=== PATIENT | male | born 1950 | race Caucasian/White ===

== ENCOUNTER → 2016-09-29 | Outpatient (CLI) | payer MEDICARE ==
--- NOTE | 2016-09-29 11:29 | US ---
EXAMINATION TYPE: US liver DATE OF EXAM: 09/29/2016 11:19 AM COMPARISON: NONE CLINICAL HISTORY: Alcoholic Cirrhosis K70.30. Alcoholic cirrhosis of liver without ascites EXAM MEASUREMENTS: Liver Length: 19.2 cm Gallbladder Wall: 0.2 cm CBD: 0.3 cm Right Kidney: 11.7 x 6.1 x 5.4 cm Pancreas: obscured by overlying midline bowel gas Liver: enlarged at 19.2cm, nodular contour, heterogeneous course echotexture without any definite le sions seen at this time, slightly dilated portal vein at 1.4cm Gallbladder: 1.0cm echogenic shadowing focus seen Evidence for sonographic Cristobal's sign: no CBD: visualized portions wnl, limited by overlying bowel gas Right Kidney: visualized portions wnl, limited by rib shadowing and overlying bowel gas Ascites within RUQ IMPRESSION: 1. Features of cirrhotic liver disease. Portal vein is dilated at 1.4 cm without thrombus at this yen e. 2. Cholelithiasis. 3. Ascites.
== END | disposition home or self-care (01) ==
LOC: RADUSWWP 10:51
PROVIDERS: ATTEND Internal Medicine Gastroenterology
DX: K74.60 Unspecified cirrhosis of liver (principal); K80.20 Calculus of gallbladder without cholecystitis without obstruction; I87.8 Other specified disorders of veins; R18.8 Other ascites
CPT/HCPCS: 76705

== ENCOUNTER → 2016-11-07 | Outpatient (CLI) | payer MEDICARE ==
[2016-11-07 10:58] LABS: CH 30.1; CHCM 33.5; HCT 39.4 % (39.0-53.0); HDW 2.57; HGB 13.6 gm/dL (13.0-17.5); MCH 31.1 pg (25.0-35.0); MCHC 34.5 g/dL (31.0-37.0); MCV 90.3 fL (80.0-100.0); RBC 4.36 m/uL (4.30-5.90); RDW 13.8 % (11.5-15.5)
[2016-11-07 11:21] LABS: ALT 29 U/L (21-72); AST 31 U/L (17-59); Alkaline Phosphatase 87 U/L (38-126); Anion Gap 10 mmol/L; Blood Urea Nitrogen 10 mg/dL (9-20); Carbon Dioxide 26 mmol/L (22-30); Chloride 105 mmol/L (98-107); Glucose 102 mg/dL (74-99); Non-African American GFR(MDRD) >60 (>60 ml/min/1.73 sqM); Potassium 4.3 mmol/L (3.5-5.1); Sodium 141 mmol/L (137-145); Total Bilirubin 1.5 mg/dL (0.2-1.3); Total Protein 7.4 g/dL (6.3-8.2)
[2016-11-07 11:38] LABS: INR 1.2 (<1.1); Prothrombin Time 12.2 sec (9.0-12.0)
== END | disposition home or self-care (01) ==
LOC: LABWHC1 10:14
PROVIDERS: ATTEND Internal Medicine Gastroenterology
DX: K70.30 Alcoholic cirrhosis of liver without ascites (principal)
CPT/HCPCS: 36415; 80053; 82105; 85027; 85610

== ENCOUNTER 2017-02-25 07:32 | Day surgery (SDC) | payer MEDICARE ==
[2017-02-24 09:04] VITALS: BMI 31.8
[~2017-02-25 07:32] MED LIST: LACTATED RINGERS 1,000 ML IV SCH; LIDOCAINE 1% 20 ML VIAL (10MG/ML) FOR IV START INTRADERMA PRN
[2017-02-25 07:48] VITALS: TEMP 98.1
[2017-02-25] MEDS ORDERED: LIDOCAINE 1% INJ 10MG/ML (20 ML MDV) ONE (07:54)
[2017-02-25] MEDS ORDERED: PROPOFOL 10 MG/ML 20 ML VIAL IV ONE (07:54)
--- NOTE | 2017-02-25 07:58 | P.GSHP ---
History of Present Illness H&P Date: 02/25/17 Chief Complaint: Screening colonoscopy 's is a 66-year-old male who presents today for screening colonoscopy. Patient denies any significant GI bleeds. His last colonoscopy was over 5 years ago. Past Medical History Past Medical History: Coronary Artery Disease (CAD), GERD/Reflux, Hypertension, Prostate Disorder Additional Past Medical History / Comment(s): GOUT, STATES HAS CIRRHOSIS OF LIVER History of Any Multi-Drug Resistant Organisms: None Reported Past Surgical History: Heart Catheterization With Stent, Orthopedic Surgery Additional Past Surgical History / Comment(s): 2 HEART STENTS, NASAL SX R/T NOSE BLEEDS, SHOULDER ROTATOR CUFF, CATHERINE CATARACT Past Anesthesia/Blood Transfusion Reactions: No Reported Reaction Date of Last Stent Placement:: 2006 Smoking Status: Former smoker - Past Family History Mother Family Medical History: No Reported History Medications and Allergies Home Medications Medication Instructions Recorded Confirmed Type Aspirin 325 mg PO DAILY 07/12/14 02/25/17 History Atorvastatin [Lipitor] 40 mg PO HS 07/12/14 02/25/17 History Cholecalciferol [Vitamin D3] 5,000 unit PO BID 07/12/14 02/25/17 History Ferocon 40 mg PO DAILY 07/12/14 02/25/17 History Omeprazole 40 mg PO AC-BRKFST 07/12/14 02/25/17 History Ranitidine HCl 150 mg PO HS 07/12/14 02/25/17 History amLODIPine BESYLATE/BENAZEPRIL 1 each PO HS 07/12/14 02/25/17 History [Lotrel 5-20 mg Capsule] traMADol HCl [Ultram] 50 mg PO Q6H PRN 07/12/14 02/25/17 History Metoprolol Tartrate [Lopressor] 25 mg PO HS 02/24/17 02/25/17 History Tamsulosin HCl [Flomax] 0.4 mg PO DAILY 02/24/17 02/25/17 History Allergies Allergy/AdvReac Type Severity Reaction Status Date / Time No Known Allergies Allergy Verified 02/24/17 08:54 Surgical - Exam Vital Signs Temp Pulse Resp BP Pulse Ox 98.1 F 62 16 136/80 98 02/25/17 07:47 02/25/17 07:47 02/25/17 07:47 02/25/17 07:47 02/25/17 07:47 - General well developed, no distress - Eyes PERRL - ENT normal pinna - Neck no masses - Respiratory normal expansion - Cardiovascular Rhythm: regular - Abdomen Abdomen: soft, non tender Assessment and Plan Plan: We will perform screening colonoscopy.
--- NOTE | 2017-02-25 08:16 | P.OP ---
Date of Procedure: 02/25/17 Preoperative Diagnosis: Screening colonoscopy Postoperative Diagnosis: Normal colon Procedure(s) Performed: Colonoscopy Anesthesia: MAC Surgeon: Nam Reeves Pathology: none sent Condition: stable Disposition: PACU Description of Procedure: PROCEDURE: The patient was placed on the endoscopy table in the lateral position. Digital rectal examination was performed which revealed no abnormalities. The prostate was symmetrical without nodules. Flexible colonoscope was then placed in the patient's anus and passed throughout the entire colon. The ileocecal valve was visualized. The cecum, ascending, transverse, descending and sigmoid colon were normal. The rectum was normal as well. There were no masses, polyps or diverticula noted in the entire colon. SUMMARY OF FINDINGS: Normal colonoscopy.
[2017-02-25 08:25] VITALS: PULSE 70; RESP 18
[2017-02-25 08:55] VITALS: BP 121/63
== END 2017-02-25 08:45 | disposition home or self-care (01) ==
LOC: ORWHC2ENDO 07:32
PROVIDERS: ATTEND Surgery
DX: Z12.11 Encounter for screening for malignant neoplasm of colon (principal); K21.9 Gastro-esophageal reflux disease without esophagitis; I25.10 Atherosclerotic heart disease of native coronary artery without angina pectoris; I10 Essential (primary) hypertension; M10.9 Gout, unspecified; K74.60 Unspecified cirrhosis of liver; Z95.5 Presence of coronary angioplasty implant and graft; Z87.891 Personal history of nicotine dependence; Z79.82 Long term (current) use of aspirin; Z79.899 Other long term (current) drug therapy
CPT/HCPCS: J2001; J2704; G0121

== ENCOUNTER → 2018-03-01 | Outpatient (CLI) | payer MEDICARE ==
[2018-03-01 11:28] LABS: ALT 37 U/L (21-72); AST 36 U/L (17-59); Albumin 3.9 g/dL (3.5-5.0); Alkaline Phosphatase 61 U/L (38-126); Anion Gap 5 mmol/L; Blood Urea Nitrogen 17 mg/dL (9-20); Calcium 8.9 mg/dL (8.4-10.2); Carbon Dioxide 30 mmol/L (22-30); Chloride 106 mmol/L (98-107); Glucose 101 mg/dL (74-99); Potassium 4.1 mmol/L (3.5-5.1); Sodium 141 mmol/L (137-145); Total Bilirubin 1.4 mg/dL (0.2-1.3); Total Protein 7.1 g/dL (6.3-8.2)
[2018-03-01 11:29] LABS: HGB 13.6 gm/dL (13.0-17.5); MCH 30.3 pg (25.0-35.0); MCHC 32.3 g/dL (31.0-37.0); MCV 93.8 fL (80.0-100.0); Mean Platelet Volume 8.1; RBC 4.48 m/uL (4.30-5.90); RDW 14.2 % (11.5-15.5); WBC 6.1 k/uL (3.8-10.6)
[2018-03-01 12:12] LABS: INR 1.2 (<1.2); Prothrombin Time 11.6 sec (9.0-12.0)
[2018-03-01 12:39] LABS: Platelet Count 72 k/uL (150-450)
== END ==
LOC: LABWHC1 10:30
PROVIDERS: ATTEND Internal Medicine Gastroenterology
DX: K70.30 Alcoholic cirrhosis of liver without ascites (principal)
CPT/HCPCS: 36415; 80053; 82105; 85027; 85610

== ENCOUNTER → 2018-03-19 | Outpatient (CLI) | payer MEDICARE ==
--- NOTE | 2018-03-19 11:31 | US ---
EXAMINATION TYPE: US liver DATE OF EXAM: 03/19/2018 COMPARISON: NONE CLINICAL HISTORY: Alcoholic cirrhosis K70.30. EXAM MEASUREMENTS: Liver Length: 16.4 cm Gallbladder Wall: 0.4 cm CBD: 0.4 cm Right Kidney: 11.3 x 5.4 x 5.0 cm Pancreas: Tail obscured by overlying bowel gas Liver: diffusely heterogeneous, ascites seen around liver Gallbladder: thickened wall and single 1.1 cm shadowing stone Evidence for sonographic Cristobal's sign: no CBD: wnl Right Kidney: wnl IMPRESSION: 1. Fatty liver. 2. Ascites. 3. Lobulated hepatic contour likely reflects underlying cirrhotic liver disease. 4. Cholelithiasis with gallbladder wall thickening.
== END | disposition home or self-care (01) ==
LOC: RADUSWWP 10:02
PROVIDERS: ATTEND Internal Medicine Gastroenterology
DX: K76.0 Fatty (change of) liver, not elsewhere classified (principal); R18.8 Other ascites; K80.20 Calculus of gallbladder without cholecystitis without obstruction
CPT/HCPCS: 76705

== ENCOUNTER → 2018-05-01 | Outpatient (CLI) | payer MEDICARE ==
[2018-05-01 11:57] LABS: Basophils % (A) 1 %; Eosinophils # (A) 0.1 k/uL (0-0.7); Eosinophils % (A) 1 %; HCT 42.8 % (39.0-53.0); HGB 13.5 gm/dL (13.0-17.5); Lymphocytes # (A) 0.7 k/uL (1.0-4.8); Lymphocytes % (A) 13 %; MCH 29.8 pg (25.0-35.0); MCHC 31.5 g/dL (31.0-37.0); MCV 94.4 fL (80.0-100.0); Mean Platelet Volume 7.7; Monocytes # (A) 0.4 k/uL (0-1.0); Monocytes % (A) 8 %; Neutrophils # (A) 3.8 k/uL (1.3-7.7); Neutrophils % (A) 76 %; RBC 4.54 m/uL (4.30-5.90); RDW 14.3 % (11.5-15.5)
[2018-05-01 12:00] LABS: Platelet Count 61 k/uL (150-450)
[2018-05-01 13:09] LABS: Appearance,Urine Clear (Clear); Bilirubin,Urine Negative (Negative); Blood,Urine Negative (Negative); Color,Urine Yellow; Glucose,Urine (UA) Negative (Negative); Ketones,Urine Negative (Negative); Leukocyte Esterase,Urine Negative (Negative); Nitrite,Urine Negative (Negative); Protein,Urine Trace (Negative); Specific Gravity,Urine 1.026 (1.001-1.035)
[2018-05-01 16:48] LABS: Iron Saturation 35.35 (15.00-50.00)
[2018-05-01 16:57] LABS: Vitamin D 25 Hydroxy 48.3 ng/mL (30.0-100.0)
[2018-05-01 17:37] LABS: Parathyroid Hormone Intact 51.2 pg/mL (14.0-72.0)
[2018-05-01 17:41] LABS: Anion Gap 7.1 mmol/L (4.00-12.00); Calcium 9.1 mg/dL (8.7-10.3); Carbon Dioxide 28.9 mmol/L (21.6-31.8); Magnesium 1.8 mg/dL (1.5-2.4); Phosphorus 2.5 mg/dL (2.4-5.1); Uric Acid 7.1 mg/dL (3.7-8.7)
== END | disposition home or self-care (01) ==
LOC: LABWHC1 09:56
PROVIDERS: ATTEND Internal Medicine Nephrology
DX: I10 Essential (primary) hypertension (principal); E61.1 Iron deficiency; D64.9 Anemia, unspecified; E55.9 Vitamin D deficiency, unspecified; E21.3 Hyperparathyroidism, unspecified; M10.9 Gout, unspecified; N39.0 Urinary tract infection, site not specified
CPT/HCPCS: 36415; 80048; 81003; 82306; 82728; 83540; 83550; 83735; 83970; 84100; 84550; 85025

== ENCOUNTER → 2018-09-20 | Outpatient (CLI) | payer MEDICARE ==
[2018-09-20 08:46] LABS: HCT 40.7 % (39.0-53.0); HGB 13.1 gm/dL (13.0-17.5); MCH 29.6 pg (25.0-35.0); MCHC 32.3 g/dL (31.0-37.0); MCV 91.4 fL (80.0-100.0); Mean Platelet Volume 8.3; RBC 4.45 m/uL (4.30-5.90); RDW 13.9 % (11.5-15.5); WBC 3.5 k/uL (3.8-10.6)
[2018-09-20 09:06] LABS: Platelet Count 64 k/uL (150-450)
[2018-09-20 17:48] LABS: Albumin 3.9 g/dL (3.80-4.90); Albumin/Globulin Ratio 1.86 (1.60-3.17); Anion Gap 6.4 mmol/L (4.00-12.00); Calcium 8.9 mg/dL (8.7-10.3); Carbon Dioxide 25.6 mmol/L (21.6-31.8); Globulin 2.1 g/dL (1.6-3.3); Potassium 4.2 mmol/L (3.5-5.5); Total Bilirubin 1.3 mg/dL (0.2-1.2)
== END ==
LOC: LABWHC1 07:44
PROVIDERS: ATTEND Family Medicine
DX: K74.60 Unspecified cirrhosis of liver (principal); Z12.5 Encounter for screening for malignant neoplasm of prostate
CPT/HCPCS: 80053; 85027; 36415; G0103

== ENCOUNTER → 2019-03-07 | Outpatient (CLI) | payer MEDICARE ==
[2019-03-07 13:09] LABS: INR 1.2 (<1.2)
[2019-03-07 20:12] LABS: African American GFR (CKD) 88.6 (60.0-200.0); Albumin/Globulin Ratio 1.82 (1.60-3.17); Anion Gap 8.2 mmol/L (4.00-12.00); Calcium 8.7 mg/dL (8.7-10.3); Carbon Dioxide 23.8 mmol/L (21.6-31.8); Globulin 2.2 g/dL (1.6-3.3); Potassium 4.4 mmol/L (3.5-5.5); Total Bilirubin 1.1 mg/dL (0.3-1.2); Total Protein 6.2 g/dL (6.2-8.2)
== END | disposition home or self-care (01) ==
LOC: LABPAT 12:07
PROVIDERS: ATTEND Internal Medicine Gastroenterology
DX: K70.30 Alcoholic cirrhosis of liver without ascites (principal)
CPT/HCPCS: 36415; 80053; 82105; 85610

== ENCOUNTER → 2019-03-31 | Outpatient (CLI) | payer MEDICARE ==
[2019-03-31 11:57] LABS: INR 1.1 (<1.2); Prothrombin Time 11.7 sec (9.0-12.0)
[2019-03-31 11:59] LABS: Calcium 9.2 mg/dL (8.4-10.2); Potassium 4.9 mmol/L (3.5-5.1); Total Bilirubin 1.1 mg/dL (0.2-1.3); Total Protein 7.1 g/dL (6.3-8.2)
--- NOTE | 2019-03-31 12:06 | US ---
EXAMINATION TYPE: US abdomen limited DATE OF EXAM: 03/31/2019 COMPARISON: 03/19/2018 CLINICAL HISTORY: 68-year-old male K70.30Alcoholic cirrhosis of liver without ascites. TECHNIQUE: Multiple sonographic images of the right upper quadrant are obtained. FINDINGS: EXAM MEASUREMENTS: Liver Length: 19 cm Gallbladder Wall: .4 cm CBD: .4 cm Right Kidney: 9.7 x 5.6 x 4.2 cm Pancreas: Obscured by bowel gas Liver: Heterogenous nodular and lobulated. Ascites visualized. No focal liver lesion identified. Gallbladder: 1.1 cm gallstone noted. Gallbladder is borderline distended at 4.2 cm wide with mild ci rcumferential wall thickening. No surrounding fluid. Evidence for sonographic Cristobal's sign: No CBD: wnl Right Kidney: No hydronephrosis. IMPRESSION: 1. Mild hepatomegaly (19.0 cm) with cirrhotic morphology. No sonographic evidence for hepatoma. 2. Mild perihepatic ascites suggests underlying portal venous hypertension. 3. A 1.1 cm gallstone. Gallbladder is borderline hydropic with mild circumference wall thickening. Hy dropic change could relate to fasting state. Wall thickening is also nonspecific and can be seen in t he setting of cirrhosis. Sonographic Cristobal sign is reported absent. If further imaging assessment of the gallbladder is desired, HIDA scan can be performed. 4. No biliary ductal dilatation.
== END | disposition home or self-care (01) ==
LOC: RADUSWWP 10:58
PROVIDERS: ATTEND Internal Medicine Gastroenterology
DX: K70.31 Alcoholic cirrhosis of liver with ascites (principal); K80.20 Calculus of gallbladder without cholecystitis without obstruction; K70.30 Alcoholic cirrhosis of liver without ascites
CPT/HCPCS: 76705; 80053; 82105; 85610

== ENCOUNTER → 2020-06-27 | Outpatient (CLI) | payer MEDICARE, OTHER ==
--- NOTE | 2020-06-27 12:04 | CTL ---
EXAMINATION TYPE: CT Low Dose Lung DATE OF EXAM ORDERED: 06/27/2020 HISTORY: Long-term tobacco use. Lung cancer screening CT DLP: 84.[address] CTDI: 2.4 mGy Automated exposure control for dose reduction was used. SCREENING VISIT: Initial study COMPARISON: None. TECHNIQUE: Low dose computed tomography scan was performed through the chest at 1 mm thick sections a nd reconstructed images in the coronal plane at [address] DIAGNOSTIC QUALITY: Satisfactory FINDINGS: LUNG NODULES: None. LUNGS: COPD: Severity: Mild Fibrosis: Severity: Minimal Lymph nodes: Calcified subcentimeter right hilar lymph nodes Other findings: None RIGHT PLEURAL SPACE: Effusion: None Calcification: None Thickening: None Pneumothorax: None LEFT PLEURAL SPACE: Effusion: None Calcification: None Thickening: None Pneumothorax: None HEART: Heart Size: Upper limits of normal Coronary calcification: Moderate to severe in the LAD. Coronary stent in the right circumflex suspect ed. Correlate clinically. Pericardial effusion: None. OTHER FINDINGS: Upper abdomen: Small sized liver with heterogeneity and peripheral lobulated margins. Adjacent ascite s. Visualized portion of spleen is prominent. Bony thorax: Some bridging osteophytes in the thoracic spine. Underlying scoliosis. Supraclavicular region: None. Other: None. IMPRESSION: No suspicious nodules. CT LUNG RAD AND CT CHEST RECOMMENDATION: Lung-Rad 1 Negative: Continue annual screening with LDCT in 12 months. S Modifier (other clinically significant findings): None Hepatic cirrhosis with ascites is known, described on prior ultrasound studies.
== END | disposition home or self-care (01) ==
LOC: RADCTMAIN 11:12
PROVIDERS: ATTEND Family Medicine
DX: Z12.2 Encounter for screening for malignant neoplasm of respiratory organs (principal); Z87.891 Personal history of nicotine dependence
CPT/HCPCS: 71271

== ENCOUNTER → 2020-08-15 | Outpatient (CLI) | payer MEDICARE ==
[2020-08-15 20:22] LABS: INR 1.65 (0.90-1.11); Prothrombin Time 17.4 sec (9.9-11.9)
[2020-08-16 02:27] LABS: African American GFR (CKD) 99.2 (60.0-200.0); Albumin/Globulin Ratio 1.67 (1.60-3.17); Anion Gap 9.3 mmol/L (4.00-12.00); BUN/Creat Ratio 16.67 Ratio (12.00-20.00); Calcium 9.1 mg/dL (8.7-10.3); Carbon Dioxide 25.7 mmol/L (21.6-31.8); Globulin 2.4 g/dL (1.6-3.3); Non-African American GFR(CKD) 85.6 (60.0-200.0); Total Bilirubin 1.1 mg/dL (0.3-1.2); Total Protein 6.4 g/dL (6.2-8.2)
== END | disposition home or self-care (01) ==
LOC: LABWHC1 11:14
PROVIDERS: ATTEND Internal Medicine Gastroenterology
DX: K70.30 Alcoholic cirrhosis of liver without ascites (principal)
CPT/HCPCS: 36415; 80053; 82105; 85610

== ENCOUNTER → 2020-08-18 | Outpatient (CLI) | payer MEDICARE ==
--- NOTE | 2020-08-18 15:45 | MR ---
EXAMINATION TYPE: MR liver wo/w con DATE OF EXAM: 08/18/2020 COMPARISON: HISTORY: Portal vein thrombosis, hx cirrhosis CONTRAST: Standard multiplanar, multisequence MRI departmental protocol utilizing 10 mL intravenous Gadavist ga dolinium contrast. Liver margin is irregular consistent with cirrhosis. There is deformity of the right lobe of the live r that is suggestive of previous partial resection. There is irregular fluid collection on the latera l aspect of the right lobe of the liver. Spleen measures 13 cm. Gallbladder appears to be present and measures 3.5 cm in diameter with heterogeneity. No gallbladder wall thickening. There is no evidence of a pancreatic mass. Pancreatic duct is not dilated. The contrast images show enhancement of the portal venous system. I see no evidence of thrombosis. Th ere is contrast opacification of the abdominal aorta and both kidneys. There is no hydronephrosis. Th ere is contrast opacification of the inferior vena cava. No evidence of thrombosis. Portal vein is la rge consistent with portal venous hypertension. There are some dilated veins around the left kidney a nd at the gastroesophageal junction consistent with varices. I see no discrete liver mass. There is n o pathologic liver enhancement. IMPRESSION: Irregular liver consistent with cirrhosis and previous surgery. No discrete pancreatic mass. No dilat ed ducts. Changes of portal venous hypertension with varices. No evidence of portal vein thrombosis. Loculated ascites fluid lateral to the right lobe of the liver. Ascites appears similar to the chest CT scan of 06/27/2020.
== END | disposition home or self-care (01) ==
LOC: RADMRIMAIN 12:00
PROVIDERS: ATTEND Internal Medicine Gastroenterology
DX: K76.6 Portal hypertension (principal); R18.8 Other ascites
CPT/HCPCS: 74183; A9585

== ENCOUNTER → 2020-08-20 | Outpatient (CLI) | payer MEDICARE ==
[2020-08-20 14:24] LABS: Basophils % (A) 1 %; Eosinophils % (A) 1 %; HCT 38.6 % (39.0-53.0); HGB 12.6 gm/dL (13.0-17.5); Lymphocytes # (A) 0.6 k/uL (1.0-4.8); Lymphocytes % (A) 18 %; MCH 29.4 pg (25.0-35.0); MCHC 32.6 g/dL (31.0-37.0); MCV 90.3 fL (80.0-100.0); Mean Platelet Volume 8.2; Monocytes # (A) 0.4 k/uL (0-1.0); Monocytes % (A) 11 %; Neutrophils # (A) 2.3 k/uL (1.3-7.7); Neutrophils % (A) 68 %; RBC 4.28 m/uL (4.30-5.90); RDW 14.5 % (11.5-15.5); WBC 3.4 k/uL (3.8-10.6)
[2020-08-20 15:34] LABS: Platelet Count 63 k/uL (150-450)
== END | disposition home or self-care (01) ==
LOC: LABPAT 11:42
PROVIDERS: ATTEND Surgery
DX: Z01.818 Encounter for other preprocedural examination (principal); K42.0 Umbilical hernia with obstruction, without gangrene
CPT/HCPCS: 36415; 85025; 93005

== ENCOUNTER 2020-08-21 06:04 | Day surgery (SDC) | payer MEDICARE ==
[2020-08-16 17:49] VITALS: BMI 29.5
[~2020-08-21 06:04] MED LIST changes: +ACETAMINOPHEN TAB 500 MG TAB PO PRN; +HEPARIN SODIUM,PORCINE 5,000 UNIT/ML 1 ML VIAL SQ PRN; -LIDOCAINE 1% 20 ML VIAL (10MG/ML) FOR IV START INTRADERMA PRN
[2020-08-21] MEDS ORDERED: LIDOCAINE 1% (10MG/ML) FOR IV START INTRADERMA ONE (06:53)
[2020-08-21] MEDS ORDERED: DEXAMETHASONE SOD PHOSPHATE 4 MG/ML 1 ML VIAL IV ONE (06:53)
[2020-08-21] MEDS: ONDANSETRON 4 MG/2 ML VIAL IVP PRN ×2 (06:54→08:55)
[2020-08-21] MEDS ORDERED: fentaNYL (PF) 50 MCG/ML 2 ML AMP IV PRN (07:00)
[2020-08-21] MEDS ORDERED: HYDROmorphone 0.5 MG/0.5 ML SYRINGE IVP PRN (07:00)
[2020-08-21] MEDS ORDERED: SUCCINYLCHOLINE CHLORIDE 100 MG/5 ML SYR IV ONE (07:40)
[2020-08-21] MEDS ORDERED: MIDAZOLAM 2 MG/2 ML VIAL ONE (07:40)
[2020-08-21] MEDS ORDERED: NEOSTIGMINE 1 MG/ML 10 ML VIAL ONE (07:40)
[2020-08-21] MEDS ORDERED: fentaNYL (PF) 50 MCG/ML 2 ML AMP ONE (07:40)
[2020-08-21] MEDS ORDERED: GLYCOPYRROLATE 0.2 MG/ML 2 ML VIAL ONE (07:40)
[2020-08-21] MEDS ORDERED: ROCURONIUM 10 MG/ML (5 ML VIAL) IV ONE (07:40)
[2020-08-21] MEDS ORDERED: PROPOFOL 10 MG/ML 20 ML VIAL IV ONE (07:40)
[2020-08-21] MEDS ORDERED: LIDOCAINE 1% INJ 10MG/ML (20 ML MDV) ONE (07:40)
[2020-08-21] MEDS ORDERED: BUPIVACAIN-EPI 0.5%-1:200,000 30 ML VIAL SQ ONE (08:04)
--- NOTE | 2020-08-21 08:43 | P.GSHP ---
History of Present Illness H&P Date: 08/21/20 Chief Complaint: Umbilical hernia This a 70-year-old male with history of umbilical pain. Patient seen Nelson set of incarcerated umbilical hernia. He presents today for laparoscopic robotic- assisted repair. Past Medical History Past Medical History: GERD/Reflux, Hyperlipidemia, Hypertension, Myocardial Infarction ([place]), Renal Disease Additional Past Medical History / Comment(s): clot in liver Last Myocardial Infarction Date:: 2012 History of Any Multi-Drug Resistant Organisms: None Reported Past Surgical History: Heart Catheterization With Stent Additional Past Surgical History / Comment(s): 2 heart stents Past Anesthesia/Blood Transfusion Reactions: No Reported Reaction Date of Last Stent Placement:: 2012 Past Psychological History: No Psychological Hx Reported Smoking Status: Former smoker Past Alcohol Use History: None Reported Additional Past Alcohol Use History / Comment(s): smoked 30 years 1 ppd quit 2012 Past Drug Use History: None Reported - Past Family History Mother Family Medical History: No Reported History Medications and Allergies Home Medications Medication Instructions Recorded Confirmed Type Atorvastatin [Lipitor] 40 mg PO HS 07/12/14 08/21/20 History Cholecalciferol [Vitamin D3] 500 unit PO DAILY 07/12/14 08/21/20 History Ferocon 40 mg PO DAILY 07/12/14 08/21/20 History Omeprazole 20 mg PO AC-BRKFST 07/12/14 08/21/20 History traMADol HCl [Ultram] 100 mg PO BID PRN 07/12/14 08/21/20 History Aspirin [Adult Low Dose Aspirin EC] 81 mg PO DAILY 08/06/20 08/21/20 History Atenolol [Tenormin] 50 mg PO HS 08/06/20 08/21/20 History Benazepril HCl [Lotensin] 20 mg PO DAILY 08/06/20 08/21/20 History Loratadine [Claritin] 10 mg PO DAILY 08/06/20 08/21/20 History Rivaroxaban [Xarelto] 15 mg PO DAILY 08/06/20 08/21/20 History Fish Oil/Dha/Epa [Fish Oil 1,200 1,400 mg PO DAILY 08/16/20 08/21/20 History mg Fish Oil] Allergies Allergy/AdvReac Type Severity Reaction Status Date / Time No Known Allergies Allergy Verified 08/21/20 06:30 Surgical - Exam Vital Signs Temp Pulse Resp BP Pulse Ox 97.7 F 75 16 153/80 98 08/21/20 06:49 08/21/20 06:49 08/21/20 06:49 08/21/20 06:49 08/21/20 06:49 - General well developed, well nourished, no distress - Eyes PERRL - ENT normal pinna - Neck no masses - Respiratory normal expansion - Cardiovascular Rhythm: regular - Abdomen Abdomen: soft, non tender Hernia: umbilical (3 cm incarcerated umbilical hernia) Assessment and Plan Assessment: Incarcerated umbilical hernia. We'll perform laparoscopic robotic-assisted repair.
--- NOTE | 2020-08-21 08:45 | P.OP ---
Date of Procedure: 08/21/20 Preoperative Diagnosis: Incarcerated umbilical hernia Postoperative Diagnosis: [place] hernia Cirrhotic liver Ascites Procedure(s) Performed: Laparoscopic robotic-assisted repair of incarcerated umbilical hernia Partial omentectomy Anesthesia: RAYSHAWN Surgeon: Nam Reeves Estimated Blood Loss (ml): 5 Pathology: other Condition: stable Disposition: PACU Description of Procedure: The patient was placed on the operating table in the supine position. He received general anesthesia. His abdomen was prepped and draped usual fashion. Using a 5 mm optical trocar under direct visualization the peritoneal cavity was entered in the left upper quadrant. The abdomen was then insufflated. The laparoscope was placed back into the perineal cavity. Next a 8 mm robotic trocar was placed in the left lower quadrant and a 12 mm robotic trocar was placed in the left lateral position. The original 5 mm trocar was exchanged for a 8 mm robotic trocar. The patient's placed in the left side up position. And the patient was undocked the robot. The umbilical hernia was visualized. Using hook cautery the peritoneum over the umbilical hernia was excised. The incarcerated omentum was dissected free and sent to pathology. The fascial opening was repaired using 0V LOC suture. Next a piece of 11 cm round ventral light ST mesh was placed into the. Cavity and secured with 2 OV lock suture. The patient was undocked the robot. The needles were retrieved. The fascia of the 12 mm trocar site was closed with 0 Ethibond suture. Skin was closed interrupted 3-0 Monocryl suture. Dermabond dressings was applied. Patient top procedure well and was sent to recovery room stable condition.
[2020-08-21 08:49] VITALS: TEMP 97.2
[2020-08-21 10:07] VITALS: RESP 18
[2020-08-21 11:08] VITALS: BP 148/80; PULSE 73
== END 2020-08-21 11:46 | disposition home or self-care (01) ==
LOC: OR 06:04
PROVIDERS: ATTEND Surgery
DX: K42.0 Umbilical hernia with obstruction, without gangrene (principal); K74.60 Unspecified cirrhosis of liver; R18.8 Other ascites; I25.10 Atherosclerotic heart disease of native coronary artery without angina pectoris; E78.5 Hyperlipidemia, unspecified; I10 Essential (primary) hypertension; I38 Endocarditis, valve unspecified; E66.9 Obesity, unspecified; N28.9 Disorder of kidney and ureter, unspecified; K21.9 Gastro-esophageal reflux disease without esophagitis; I25.2 Old myocardial infarction; Z95.5 Presence of coronary angioplasty implant and graft; Z79.899 Other long term (current) drug therapy; Z79.82 Long term (current) use of aspirin; Z79.01 Long term (current) use of anticoagulants; Z68.29 Body mass index [BMI] 29.0-29.9, adult; Z87.19 Personal history of other diseases of the digestive system; Z87.891 Personal history of nicotine dependence
CPT/HCPCS: 88302; 49653; C1781; J2250; J1644; J1100; J2710; J0690; J2405; J2001; J3010; J0330; J2704; J1170

== ENCOUNTER 2020-09-05 10:28 | Day surgery (SDC) | payer MEDICARE ==
[2020-08-31 10:15] VITALS: BMI 29.5
[~2020-09-05 10:28] MED LIST changes: -ACETAMINOPHEN TAB 500 MG TAB PO PRN; -HEPARIN SODIUM,PORCINE 5,000 UNIT/ML 1 ML VIAL SQ PRN; +LIDOCAINE 1% (10MG/ML) FOR IV START INTRADERMA PRN
[2020-09-05 11:14] VITALS: PULSE 85; RESP 16; TEMP 97.7
[2020-09-05] MEDS ORDERED: PROPOFOL 10 MG/ML 20 ML VIAL IV ONE (11:30)
[2020-09-05] MEDS ORDERED: LIDOCAINE 1% INJ 10MG/ML (20 ML MDV) ONE (11:30)
--- NOTE | 2020-09-05 11:49 | P.PCN ---
Date of Procedure: 09/05/20 Procedure(s) Performed: Brief history: Patient is a pleasant 70-year-old white male scheduled for an elective upper endoscopy as well as colonoscopy as a part of evaluation of alcoholic cirrhosis of the liver/screening for esophageal varices. He was recently diagnosed with colon cancer versus and he scheduled for colonoscopy to rule out underlying malignancy. Procedure performed: Esophagogastroduodenoscopy with biopsy Colonoscopy with snare polypectomy Preoperative diagnosis: Alcoholic cirrhosis of the liver/screening for esophageal varices History of DVT/screening for colon cancer Anesthesia: MAC Procedure: After informed consent was obtained from the patient was brought into the endoscopy unit and IV sedation was administered by anesthesia under continuous monitoring. Initially upper endoscopy was done. The Olympus GF 160 video endoscope was inserted inserted into the mouth and esophagus intubated without any difficulty and was gradually advanced into the stomach and duodenum and carefully examined. The bulb and second part of the duodenum appeared normal. The scope was then withdrawn into the stomach adequately insufflated with air and upon careful examination the antrum and body, cardia had changes consistent with portal hypertensive gastropathy. The fundus appeared normal. The scope was then withdrawn into the esophagus. The GE junction was located at 40 cm to the incisors. It appeared regular with no erythema erosions or ulcerations. There were large esophageal varices noted in the mid and distal esophagus. Rest of the esophagus appeared normal. Patient tolerated the procedure well. At this time the patient continued to remain sedation. Initial digital rectal examination was normal. Olympus CF 160 video colonoscope was then inserted into the rectum and gradually advanced to the cecum without any difficulty. Careful examination was performed as the scope was gradually being withdrawn. The prep was excellent. The cecum, ascending colon, transverse colon, appeared normal. The transverse colon there was a 5 mm polyp that was removed by snare p olypectomy. Rest of descending colon, sigmoid colon and rectum appeared normal. Retroflexion was performed in the rectum and grade 2 internal hemorrhoids were noted. Patient tolerated the procedure well. Impression: 1. Upper endoscopy revealed large esophageal varices and portal hypertensive gastropathy 2. Colonoscopy revealed a 5 mm transverse colon polyp status post polypectomy and grade 2 internal Recommendations: Findings of this examination were discussed with the patient as well as his family. He was advised to follow with the biopsy results. He'll be seen in office in 2 weeks.
[2020-09-05 12:08] VITALS: BP 133/76
== END 2020-09-05 12:28 | disposition home or self-care (01) ==
LOC: ORWHC2ENDO 10:28
PROVIDERS: ATTEND Internal Medicine Gastroenterology
DX: Z12.11 Encounter for screening for malignant neoplasm of colon (principal); D12.3 Benign neoplasm of transverse colon; K64.1 Second degree hemorrhoids; Z13.810 Encounter for screening for upper gastrointestinal disorder; I85.10 Secondary esophageal varices without bleeding; K70.30 Alcoholic cirrhosis of liver without ascites; K76.6 Portal hypertension; K31.89 Other diseases of stomach and duodenum; K29.50 Unspecified chronic gastritis without bleeding; I81 Portal vein thrombosis; K08.409 Partial loss of teeth, unspecified cause, unspecified class; I25.10 Atherosclerotic heart disease of native coronary artery without angina pectoris; I10 Essential (primary) hypertension; E78.5 Hyperlipidemia, unspecified; K21.9 Gastro-esophageal reflux disease without esophagitis; Z86.718 Personal history of other venous thrombosis and embolism; Z79.82 Long term (current) use of aspirin; Z79.01 Long term (current) use of anticoagulants; Z79.891 Long term (current) use of opiate analgesic; Z79.899 Other long term (current) drug therapy; Z95.5 Presence of coronary angioplasty implant and graft
CPT/HCPCS: 45385; 43239; J2001; J2704; 88305

== ENCOUNTER 2020-10-24 08:59 | Day surgery (SDC) | payer MEDICARE ==
[2020-10-24 09:32] VITALS: RESP 18; TEMP 97.7
[2020-10-24 09:35] LABS: African American GFR (CKD) >90 (>60 ml/min/1.73 sqM); Non-African American GFR(CKD) >90 (>60 ml/min/1.73 sqM)
[2020-10-24 09:37] LABS: Mean Platelet Volume 8.4
[2020-10-24 09:38] LABS: Platelet Count 88 k/uL (150-450)
[2020-10-24 09:43] LABS: INR 1.2 (<1.2); Prothrombin Time 12.4 sec (9.0-12.0)
[2020-10-24] MEDS: ALBUMIN HUMAN 25% 50 ML in EMPTY BAG 1 BAG IVPB SCH ×4 (10:38→11:27)
[2020-10-24 13:12] VITALS: BP 102/62; PULSE 75
--- NOTE | 2020-10-24 13:40 | US ---
EXAMINATION TYPE: US paracentesis abd w/image DATE OF EXAM: 10/24/2020 COMPARISON: NONE HISTORY: Ascites. PROCEDURE: Maximal barrier technique was utilized. The skin overlying a suitable pocket of fluid was localized with ultrasound and the overlying skin was prepped and draped. Ultrasound was utilized with sterile technique. Lidocaine was used for local anesthesia and a skin farheen made with a scalpel. Catheter was advanced under direct ultrasound guidance into a suitable pocket of fluid and approximately 11.3 lite rs of serous fluid were removed. Catheter was withdrawn and hemostasis achieved. There is no immedi ate complication; the patient is discharged in stable condition. IMPRESSION: STATUS POST ULTRASOUND GUIDED PARACENTESIS FOR PALLIATION OF ASCITES. THIS PROCEDURE WA S PERFORMED BY THE UNDERSIGNED.
== END 2020-10-24 13:50 | disposition home or self-care (01) ==
LOC: RADPROMAIN 08:59
PROVIDERS: ATTEND Surgery
DX: R18.8 Other ascites (principal)
CPT/HCPCS: 82565; 85049; 85610; 36415; 49083; P9047

== ENCOUNTER 2020-11-06 14:55 | Observation (INO) | payer MEDICARE ==
--- NOTE | 2020-11-06 15:47 | ED ---
General Adult HPI - General Chief complaint: Abdominal Pain Stated complaint: Paracentesis,sent by pcp Time Seen by Provider: 11/06/20 15:07 Source: patient, RN notes reviewed, old records reviewed Mode of arrival: ambulatory Limitations: no limitations - History of Present Illness Initial comments: 70-year-old male with history of cirrhosis and ascites presenting with abdominal distention and discomfort. He states he had paracentesis approximately 2 weeks ago where they removed 11 L of fluid. Patient contacted the primary care physician to inquire about paracentesis and states that this is scheduled for 2 weeks from now. He is unable to wait this long. He denies fever. Pain is generalized and similar to prior. No vomiting. Patient is urinating. No dyspnea. - Related Data Home Medications Medication Instructions Recorded Confirmed Atorvastatin [Lipitor] 40 mg PO DAILY 07/12/14 10/24/20 Cholecalciferol [Vitamin D3] 5,000 unit PO TH 07/12/14 10/24/20 traMADol HCl [Ultram] 100 mg PO BID PRN 07/12/14 10/24/20 Aspirin [Adult Low Dose Aspirin EC] 81 mg PO DAILY 08/06/20 10/24/20 Atenolol [Tenormin] 50 mg PO HS 08/06/20 10/24/20 Benazepril HCl [Lotensin] 20 mg PO DAILY 08/06/20 10/24/20 Loratadine [Claritin] 10 mg PO DAILY 08/06/20 10/24/20 Feracon Iron Supplement 40 mg PO DAILY 08/31/20 10/24/20 Omeprazole 20 mg PO AC-LUNCH 08/31/20 10/24/20 Allergies Allergy/AdvReac Type Severity Reaction Status Date / Time No Known Allergies Allergy Verified 11/06/20 14:59 Review of Systems ROS Statement: Those systems with pertinent positive or pertinent negative responses have been documented in the HPI. ROS Other: All systems not noted in ROS Statement are negative. Past Medical History Past Medical History: GERD/Reflux, Hyperlipidemia, Hypertension, Myocardial Infarction ([place]), Renal Disease Additional Past Medical History / Comment(s): clot in liver Last Myocardial Infarction Date:: 2012 History of Any Multi-Drug Resistant Organisms: None Reported Past Surgical History: Heart Catheterization With Stent Additional Past Surgical History / Comment(s): 2 heart stents Past Anesthesia/Blood Transfusion Reactions: No Reported Reaction Date of Last Stent Placement:: 2012 Past Psychological History: No Psychological Hx Reported Smoking Status: Former smoker Past Alcohol Use History: None Reported Past Drug Use History: None Reported General Exam Limitations: no limitations General appearance: alert, in no apparent distress Head exam: Present: atraumatic, normocephalic Eye exam: Present: normal appearance, PERRL ENT exam: Present: normal exam Neck exam: Present: normal inspection. Absent: tenderness, meningismus Respiratory exam: Present: normal lung sounds bilaterally. Absent: respiratory distress, wheezes Cardiovascular Exam: Present: regular rate, normal rhythm GI/Abdominal exam: Present: distended, other (Positive fluid wave). Absent: guarding, rebound Extremities exam: Present: pedal edema (Trace) Neurological exam: Present: alert, oriented X3, CN II-XII intact. Absent: motor sensory deficit Psychiatric exam: Present: normal affect, normal mood Skin exam: Present: warm, dry, intact. Absent: cyanosis, diaphoretic Course Vital Signs 11/06/20 14:57 Temperature 97.5 F L Pulse Rate 82 Respiratory 16 Rate Blood Pressure 121/77 O2 Sat by Pulse 95 Oximetry Medical Decision Making - Medical Decision Making 70-year-old male hemodynamic was stable with abdominal distention, recurrent ascites. I did contact the interventional radiologist Dr. Bowie regarding paracentesis. The scheduling is full for today but they are able to schedule the patient for paracentesis tomorrow. Patient will be admitted with interventional radiology on consult. Laboratory tests including CBC, BMP and PT/INR have been ordered, results pending. Disposition Clinical Impression: Liver cirrhosis, Ascites Disposition: ADMITTED IP TO THIS HOSP Condition: Stable Instructions (If sedation given, give patient instructions): Ascites (ED) Is patient prescribed a controlled substance at d/c from ED?: No Referrals: Trang Jackson DO [Primary Care Provider] - 1-2 days Decision to Admit Reason: Admit from EC Decision Date: 11/06/20 Decision Time: 15:53
[2020-11-06] MEDS ORDERED: MORPHINE SULFATE 4 MG/ML SYRINGE IV PRN (15:56)
[2020-11-06] MEDS ORDERED: NALOXONE 0.4 MG/ML 1 ML VIAL IV PRN (15:56)
[2020-11-06 16:11] LABS: Basophils # (A) 0.1 k/uL (0-0.2); Basophils % (A) 1 %; Eosinophils # (A) 0.1 k/uL (0-0.7); Eosinophils % (A) 2 %; HCT 39.7 % (39.0-53.0); Lymphocytes # (A) 0.6 k/uL (1.0-4.8); Lymphocytes % (A) 13 %; MCH 28.7 pg (25.0-35.0); MCHC 32.8 g/dL (31.0-37.0); MCV 87.4 fL (80.0-100.0); Mean Platelet Volume 9.6; Monocytes # (A) 0.4 k/uL (0-1.0); Monocytes % (A) 9 %; Neutrophils # (A) 3.3 k/uL (1.3-7.7); Neutrophils % (A) 74 %; RBC 4.55 m/uL (4.30-5.90); RDW 15.4 % (11.5-15.5); WBC 4.4 k/uL (3.8-10.6)
[2020-11-06 16:19] LABS: Platelet Count 72 k/uL (150-450)
[2020-11-06 16:20] LABS: African American GFR (CKD) >90 (>60 ml/min/1.73 sqM); Anion Gap 5 mmol/L; Blood Urea Nitrogen 15 mg/dL (9-20); Calcium 8.9 mg/dL (8.4-10.2); Carbon Dioxide 28 mmol/L (22-30); Chloride 107 mmol/L (98-107); Glucose 134 mg/dL (74-99); Non-African American GFR(CKD) >90 (>60 ml/min/1.73 sqM); Sodium 140 mmol/L (137-145)
[2020-11-06 16:21] LABS: INR 1.2 (<1.2); Partial Thromboplastin Time 26.1 sec (22.0-30.0); Prothrombin Time 12.6 sec (9.0-12.0)
[2020-11-06 16:32] LABS: Potassium 4.4 mmol/L (3.5-5.1)
[2020-11-07 04:25] VITALS: TEMP 98
[2020-11-07] MEDS ORDERED: PANTOPRAZOLE 40 MG TABLET PO SCH (07:30)
--- NOTE | 2020-11-07 09:36 | US ---
Ultrasound-guided paracentesis. DATE OF EXAM: 11/07/2020 CLINICAL HISTORY: Ascites The procedure was discussed with the patient. The risks, complications, benefits, and alternatives we re discussed and any questions were answered. Informed consent was obtained. The patient was placed s upine on the ultrasound table and prepped and draped in the usual sterile fashion. All elements of maximal barrier technique were utilized. Under ultrasound guidance, access into the right lower quadrant was obtained, via the paracentesis catheter system and direct ultrasound guidanc e. Approximately 8 liters of straw-colored fluid was removed. The patient was stable throughout the proc edure and remained stable upon discharge from Department of Radiology. IMPRESSION: Successful paracentesis under ultrasound guidance.
[2020-11-07 10:47] VITALS: RESP 17
[2020-11-07] MEDS ORDERED: ASPIRIN 81 MG PO SCH (13:00)
[2020-11-07] MEDS ORDERED: FEROCON PO SCH (13:00)
[2020-11-07] MEDS ORDERED: atenoloL 25 MG TAB PO SCH (13:00)
[2020-11-07] MEDS ORDERED: ATORVASTATIN 40 MG TAB PO SCH (13:00)
[2020-11-07] MEDS: ALBUMIN HUMAN 25% 50 ML in EMPTY BAG 1 BAG IVPB SCH ×4 (13:19→17:20)
[2020-11-07 13:57] VITALS: BP 115/68; PULSE 76
[2020-11-08] MEDS ORDERED: CHOLECALCIFEROL 25 MCG (1000 IU) TABLET PO SCH (09:00)
[2020-11-08] MEDS ORDERED: LORATADINE 10 MG TAB PO SCH (09:00)
--- NOTE | 2020-11-18 23:34 | P.HPIM ---
History of Present Illness H&P Date: 11/07/20 Kan Alba is a 70 yo M with PMH of alcoholic cirrhosis, recent hernia surgery who presented to the ED with worsening abdominal distention. He states that since his recent hernia surgery a few weeks ago he has noticed significantly increased bloating and abdominal distention. He was seen in his P CP clinic and started on lasix and aldactone but did not make a huge difference so came to the hospital. He denies vomiting. On presentation vitals and labs stable. Review of Systems All systems: negative Constitutional: Denies chills, Denies fever Eyes: denies blurred vision, denies pain Ears, nose, mouth and throat: Denies headache, Denies sore throat Cardiovascular: Denies chest pain, Denies shortness of breath Respiratory: Denies cough Gastrointestinal: Denies abdominal pain, Denies diarrhea, Denies nausea, Denies vomiting Musculoskeletal: Denies myalgias Integumentary: Denies pruritus, Denies rash Neurological: Denies numbness, Denies weakness Psychiatric: Denies anxiety, Denies depression Endocrine: Denies fatigue, Denies weight change Past Medical History Past Medical History: GERD/Reflux, Hyperlipidemia, Hypertension, Myocardial Infarction ([place]), Renal Disease Additional Past Medical History / Comment(s): clot in liver Last Myocardial Infarction Date:: 2012 History of Any Multi-Drug Resistant Organisms: None Reported Past Surgical History: Heart Catheterization With Stent Additional Past Surgical History / Comment(s): 2 heart stents Past Anesthesia/Blood Transfusion Reactions: No Reported Reaction Date of Last Stent Placement:: 2012 Past Psychological History: No Psychological Hx Reported Smoking Status: Former smoker Past Alcohol Use History: None Reported Additional Past Alcohol Use History / Comment(s): smoked 30 years 1 ppd quit 2012 Past Drug Use History: None Reported Medications and Allergies Home Medications Medication Instructions Recorded Confirmed Type Atorvastatin [Lipitor] 40 mg PO DAILY 07/12/14 11/06/20 History traMADol HCl [Ultram] 100 mg PO BID PRN 07/12/14 11/06/20 History Aspirin [Adult Low Dose Aspirin EC] 81 mg PO DAILY 08/06/20 11/06/20 History Atenolol [Tenormin] 25 mg PO DAILY 08/06/20 11/06/20 History Benazepril HCl [Lotensin] 20 mg PO DAILY 08/06/20 11/06/20 History Loratadine [Claritin] 10 mg PO DAILY 08/06/20 11/06/20 History Omeprazole 20 mg PO DAILY 08/31/20 11/06/20 History Cholecalciferol (Vitamin D3) 125 mcg PO TH 11/06/20 11/06/20 History [Vitamin D3 (5000 Iu)] Ferocon 1 cap PO DAILY 11/06/20 11/06/20 History Furosemide [Lasix] 40 mg PO DAILY #30 tablet 11/07/20 Rx Spironolactone [Aldactone] 100 mg PO DAILY #30 tab 11/07/20 Rx Allergies Allergy/AdvReac Type Severity Reaction Status Date / Time No Known Allergies Allergy Verified 11/06/20 14:59 Physical Exam Vitals: Vital Signs Temp Pulse Pulse Resp BP Pulse Ox 11/07/20 12:35 76 115/68 95 11/07/20 12:05 72 112/68 11/07/20 11:35 71 114/68 94 L 11/07/20 11:20 72 113/67 94 L 11/07/20 11:05 73 119/66 94 L 11/07/20 10:50 72 120/68 97 11/07/20 10:35 98 F 76 17 120/66 95 11/07/20 10:15 75 16 120/68 96 11/07/20 10:00 74 16 123/69 96 11/07/20 09:45 73 16 116/70 96 11/07/20 09:30 74 14 122/73 94 L 11/07/20 09:15 76 16 123/73 95 11/07/20 08:58 76 16 126/78 95 11/07/20 08:49 80 16 124/79 93 L 11/07/20 02:00 98 F 66 16 110/68 96 Intake and Output 11/07/20 11/07/20 11/07/20 06:59 14:59 22:59 Intake Total 240 Balance 240 Intake: Oral 240 Other: # Voids 2 2 General: well nourished, well developed, NAD. Vitals reviewed Eyes: PERRL, EOMI, conjunctiva normal HENT: normocephalic, mucus membranes moist Neck: supple, no JVD Lungs: normal respiratory effort, no wheezes or rales CV: Regular rate and rhythm, no murmur. Peripheral pulses 2+ Abdomen: soft, distended no organomegaly Lymph: no cervical or axillary LAD Skin: warm and dry. Neuro: A&Ox3, normal mood and affect Results CBC & Chem 7: 11/06/20 15:56 11/06/20 15:56 Thrombosis Risk Factor Assmnt - Choose All That Apply Each Risk Factor Represents 2 Points: Age 61-74 years Thrombosis Risk Factor Assessment Total Risk Factor Score: 2 Thrombosis Risk Factor Assessment Level: Low Risk Assessment and Plan Plan: 1. Alcoholic cirrhosis with ascites. Admit and consult to IR. Therapeutic paracentesis scheduled
--- NOTE | 2020-11-18 23:35 | P.DS ---
Providers Date of admission: 11/06/20 15:56 Expected date of discharge: 11/07/20 Attending physician: Amaury Archer MD Primary care physician: Trang Jackson [facility] Course: Kan Alba is a 70 yo M with PMH of alcoholic cirrhosis, recent hernia surgery who presented to the ED with worsening abdominal distention. He states that since his recent hernia surgery a few weeks ago he has noticed significantly increased bloating and abdominal distention. He was seen in his PCP clinic and started on lasix and aldactone but did not make a huge difference so came to the hospital. He denies vomiting. On presentation vitals and labs stable. He underwent therapeutic paracentesis and is discharged home, will continue with lasix and aldactone. Patient Condition at Discharge: Stable Plan - Discharge Summary Discharge Rx Participant: No New Discharge Prescriptions: New Furosemide [Lasix] 40 mg PO DAILY #30 tablet Spironolactone [Aldactone] 100 mg PO DAILY #30 tab Continue traMADol HCl [Ultram] 100 mg PO BID PRN PRN Reason: Pain Atorvastatin [Lipitor] 40 mg PO DAILY Atenolol [Tenormin] 25 mg PO DAILY Loratadine [Claritin] 10 mg PO DAILY Aspirin [Adult Low Dose Aspirin EC] 81 mg PO DAILY Benazepril HCl [Lotensin] 20 mg PO DAILY Omeprazole 20 mg PO DAILY Ferocon 1 cap PO DAILY Cholecalciferol (Vitamin D3) [Vitamin D3 (5000 Iu)] 125 mcg PO TH Discharge Medication List Atorvastatin [Lipitor] 40 mg PO DAILY 07/12/14 [History] traMADol HCl [Ultram] 100 mg PO BID PRN 07/12/14 [History] Aspirin [Adult Low Dose Aspirin EC] 81 mg PO DAILY 08/06/20 [History] Atenolol [Tenormin] 25 mg PO DAILY 08/06/20 [History] Benazepril HCl [Lotensin] 20 mg PO DAILY 08/06/20 [History] Loratadine [Claritin] 10 mg PO DAILY 08/06/20 [History] Omeprazole 20 mg PO DAILY 08/31/20 [History] Cholecalciferol (Vitamin D3) [Vitamin D3 (5000 Iu)] 125 mcg PO TH 11/06/20 [History] Ferocon 1 cap PO DAILY 11/06/20 [History] Furosemide [Lasix] 40 mg PO DAILY #30 tablet 11/07/20 [Rx] Spironolactone [Aldactone] 100 mg PO DAILY #30 tab 11/07/20 [Rx] Follow up Appointment(s)/Referral(s): Trang Jackson DO [Primary Care Provider] - 11/14/20 3:45 pm Patient Instructions/Handouts: Ascites (ED), Paracentesis (DC) Discharge Disposition: HOME SELF-CARE
== END 2020-11-07 18:32 | disposition home or self-care (01) ==
LOC: EC 14:55 → 5NMEDONC 15:56
PROVIDERS: ADMIT Family Medicine; ATTEND Family Medicine
DX: K70.31 Alcoholic cirrhosis of liver with ascites (principal); I10 Essential (primary) hypertension; E78.5 Hyperlipidemia, unspecified; K21.9 Gastro-esophageal reflux disease without esophagitis; N28.9 Disorder of kidney and ureter, unspecified; I25.2 Old myocardial infarction; Z20.822 Contact with and (suspected) exposure to COVID-19; Z79.82 Long term (current) use of aspirin; Z79.899 Other long term (current) drug therapy; Z87.891 Personal history of nicotine dependence; Z95.5 Presence of coronary angioplasty implant and graft; Z98.890 Other specified postprocedural states
CPT/HCPCS: 96374; 99285; 36415; 80048; 85025; 85610; 85730; 87635; 49083; G0378 ×2; J2270; P9047

== ENCOUNTER → 2020-12-06 | Outpatient (CLI) | payer MEDICARE ==
[2020-12-06 18:45] LABS: HGB 13.1 g/dL (13.0-17.0); MCHC 31.2 g/dL (32.0-37.0); MCV 89.7 fL (80.0-97.0); Mean Platelet Volume 12.2 fL (9.5-12.2); Platelet Count 84 X 10*3/uL (140-440); RBC 4.68 X 10*6/uL (4.40-5.60); RDW 17.2 % (11.5-14.5); WBC 5.33 X 10*3/uL (4.50-10.00)
[2020-12-06 20:04] LABS: African American GFR (CKD) 77.9 (60.0-200.0); Albumin 3.5 g/dL (3.80-4.90); Albumin/Globulin Ratio 1.13 (1.60-3.17); Anion Gap 5.7 mmol/L (4.00-12.00); BUN/Creat Ratio 15.45 Ratio (12.00-20.00); Calcium 8.7 mg/dL (8.7-10.3); Carbon Dioxide 26.3 mmol/L (21.6-31.8); Globulin 3.1 g/dL (1.6-3.3); Non-African American GFR(CKD) 67.2 (60.0-200.0); Potassium 4.8 mmol/L (3.5-5.5); Total Protein 6.6 g/dL (6.2-8.2)
== END | disposition home or self-care (01) ==
LOC: LABWHC1 13:28
PROVIDERS: ATTEND Internal Medicine Gastroenterology
DX: K70.30 Alcoholic cirrhosis of liver without ascites (principal)
CPT/HCPCS: 36415; 80053; 85027

== ENCOUNTER 2021-01-16 10:47 | Day surgery (SDC) | payer MEDICARE ==
[2021-01-14 11:57] VITALS: BMI 25.7
[2021-01-16 12:34] VITALS: TEMP 96.9
[2021-01-16] MEDS ORDERED: PROPOFOL 10 MG/ML 20 ML VIAL IV ONE (13:05)
--- NOTE | 2021-01-16 13:19 | P.PCN ---
Date of Procedure: 01/16/21 Procedure(s) Performed: BRIEF HISTORY: Patient is a 70-year-old, pleasant, male with history of cirrhosis of the liver and esophageal varices scheduled for an upper endoscopy with variceal ligation as a part of evaluation of large esophageal varices noted an upper endoscopy a few months ago. He is not a candidate for nonselective B beta adonay therapy. PROCEDURE PERFORMED: Esophagogastroduodenoscopy with variceal ligation. PREOPERATIVE DIAGNOSIS: Follow-up esophageal varices. IV sedation per anesthesia. PROCEDURE: After informed consent was obtained, the patient was brought into the endoscopy unit. IV sedation was administered by Anesthesia under continuous monitoring. Initially the Olympus GIF-140 video endoscope was inserted into the mouth. Esophagus intubated without any difficulty. It was gradually advanced into the stomach and duodenum and carefully examined. The bulb and the second part of the duodenum appeared normal. The scope at this time was withdrawn to the stomach, adequately insufflated with air, and upon careful examination, mucosa of the antrum, a normal. There was evidence of portal hypertensive gastropathy involving the body and fundus of the stomach. The scope was then withdrawn into the esophagus. The GE junction was located at 39 cm from the incisors.there were large esophageal varices identified in the mid and distal esophagus. The rest of the esophagus appeared normal. at this time the scope was removed and esophageal variceal ligation equipment was introduced onto the tip of the scope and esophagus reintubated without any difficulty. It was gradually advanced into the distal esophagus. Total of 7. bands were deployed starting from the distal to midesophagus. Patient tolerated the procedure well IMPRESSION: 1. Large esophageal varices status post variceal ligation as described. 2. Moderate portal hypertensive gastropathy RECOMMENDATIONS: The findings of this examination were discussed with the patient as well as his family. Will plan a repeat upper endoscopy in 4-6 weeks. .
[2021-01-16 13:25] VITALS: RESP 16
[2021-01-16 13:42] VITALS: BP 103/62; PULSE 67
== END 2021-01-16 14:17 | disposition home or self-care (01) ==
LOC: ORWHC2ENDO 10:47
PROVIDERS: ATTEND Internal Medicine Gastroenterology
DX: K74.60 Unspecified cirrhosis of liver (principal); I85.10 Secondary esophageal varices without bleeding; I10 Essential (primary) hypertension; K76.6 Portal hypertension; E78.5 Hyperlipidemia, unspecified; Z79.899 Other long term (current) drug therapy; K31.89 Other diseases of stomach and duodenum
CPT/HCPCS: 43244; J2704

== ENCOUNTER 2021-03-05 12:28 | Day surgery (SDC) | payer MEDICARE ==
[~2021-03-05 12:28] MED LIST changes: +ALBUMIN HUMAN 25% 50 ML in EMPTY BAG 1 BAG IVPB SCH; -LACTATED RINGERS 1,000 ML IV SCH; -LIDOCAINE 1% (10MG/ML) FOR IV START INTRADERMA PRN
[2021-03-05 12:58] LABS: Mean Platelet Volume 9.3; Platelet Count 101 k/uL (150-450)
[2021-03-05 13:02] VITALS: RESP 18; TEMP 97.8
[2021-03-05 13:04] LABS: INR 1.2 (<1.2); Prothrombin Time 12.4 sec (9.0-12.0)
[2021-03-05 13:46] VITALS: PULSE 70
[2021-03-05 14:13] VITALS: BP 92/50
--- NOTE | 2021-03-05 16:08 | US ---
Discontinued paracentesis, limited abdomen ultrasound HISTORY: Ascites Ultrasound shows moderate ascites in the lower abdomen. During procedure planning patient was noted to be hypotensive. Following consultation with the referr ing clinician patient was referred to the emergency center. No paracentesis performed at this time. IMPRESSION: Limited abdomen ultrasound with moderate ascites.
== END 2021-03-05 14:20 | disposition home or self-care (01) ==
LOC: RADPROMAIN 12:28
PROVIDERS: ATTEND Family Medicine
DX: R18.8 Other ascites (principal)
CPT/HCPCS: 36415; 76705; 82565; 85049; 85610

== ENCOUNTER 2021-03-05 14:24 | Observation (INO) | payer MEDICARE ==
[2021-03-05 16:32] LABS: Basophils # (A) 0.1 k/uL (0-0.2); Basophils % (A) 1 %; Eosinophils # (A) 0.1 k/uL (0-0.7); Eosinophils % (A) 2 %; HCT 39.3 % (39.0-53.0); Lymphocytes # (A) 0.6 k/uL (1.0-4.8); Lymphocytes % (A) 10 %; MCH 30.8 pg (25.0-35.0); MCHC 33.1 g/dL (31.0-37.0); Mean Platelet Volume 9.4; Monocytes # (A) 0.5 k/uL (0-1.0); Monocytes % (A) 8 %; Neutrophils # (A) 4.6 k/uL (1.3-7.7); Neutrophils % (A) 78 %; Platelet Count 101 k/uL (150-450); RBC 4.23 m/uL (4.30-5.90); RDW 15.7 % (11.5-15.5); WBC 5.9 k/uL (3.8-10.6)
[2021-03-05 16:43] LABS: INR 1.2 (<1.2); Partial Thromboplastin Time 24.9 sec (22.0-30.0); Prothrombin Time 12.4 sec (9.0-12.0)
[2021-03-05 16:45] LABS: Albumin 3.3 g/dL (3.5-5.0); Calcium 8.6 mg/dL (8.4-10.2); Total Bilirubin 1.5 mg/dL (0.2-1.3); Total Protein 7.2 g/dL (6.3-8.2)
[2021-03-05 16:46] LABS: Potassium 5.7 mmol/L (3.5-5.1)
[2021-03-05] MEDS ORDERED: NALOXONE 0.4 MG/ML 1 ML VIAL IV PRN (18:35)
--- NOTE | 2021-03-05 18:35 | ED ---
Abdominal Pain HPI - General Chief Complaint: Abdominal Pain Stated Complaint: Recheck-labs Time Seen by Provider: 03/05/21 15:50 Source: patient Mode of arrival: wheelchair Limitations: no limitations - History of Present Illness Initial Comments: 70-year-old male past medical history of liver failure, recurrent ascites who presents emergency Department with reported abdominal distention. He is a patient Dr. Santana. Reports that he follow-up with him 10 days ago for abdominal distention and pain. Dr. Santana that of an appointment for him to have a paracentesis today. States he arrived to the hospital. They took his vitals and found to be hypotensive and therefore would not complete the procedure and symptoms to the emergency room for evaluation. Patient reports that he has not been eating or drinking due to the abdominal pain and di stention. He has had 2 previous paracenteses, last of which was approximately 4 months ago. He denies any fevers or chills. No vomiting. Denies any black or bloody stools. No changes in his urination. No other alleviating, precipitating or modifying factors - Related Data Home Medications Medication Instructions Recorded Confirmed Atorvastatin [Lipitor] 40 mg PO DAILY 07/12/14 03/05/21 traMADol HCl [Ultram] 100 mg PO BID PRN 07/12/14 03/05/21 Aspirin [Adult Low Dose Aspirin EC] 81 mg PO DAILY 08/06/20 03/05/21 Atenolol [Tenormin] 25 mg PO DAILY 08/06/20 03/05/21 Loratadine [Claritin] 10 mg PO DAILY PRN 08/06/20 03/05/21 Omeprazole 20 mg PO DAILY 08/31/20 03/05/21 Cholecalciferol (Vitamin D3) 125 mcg PO TH 11/06/20 03/05/21 [Vitamin D3 (5000 Iu)] Ferocon 1 cap PO DAILY 11/06/20 03/05/21 Benazepril HCl 10 mg PO DAILY 03/05/21 03/05/21 Previous Rx's Medication Instructions Recorded Furosemide [Lasix] 40 mg PO DAILY #30 tablet 11/07/20 Spironolactone [Aldactone] 50 mg PO DAILY #90 tab 03/06/21 Allergies Allergy/AdvReac Type Severity Reaction Status Date / Time No Known Allergies Allergy Verified 03/05/21 18:24 Review of Systems ROS Statement: Those systems with pertinent positive or pertinent negative responses have been documented in the HPI. ROS Other: All systems not noted in ROS Statement are negative. Past Medical History Past Medical History: GERD/Reflux, Hyperlipidemia, Hypertension, Myocardial Infarction ([place]), Renal Disease Additional Past Medical History / Comment(s): clot in liver. esophageal vari porfirio. recent ear infection Last Myocardial Infarction Date:: 2012 History of Any Multi-Drug Resistant Organisms: None Reported Past Surgical History: Heart Catheterization With Stent Additional Past Surgical History / Comment(s): 2 heart stents, paracentesis times 2 previously Past Anesthesia/Blood Transfusion Reactions: No Reported Reaction Date of Last Stent Placement:: 2012 Past Psychological History: No Psychological Hx Reported Smoking Status: Former smoker Past Alcohol Use History: None Reported Past Drug Use History: None Reported General Exam Limitations: no limitations General appearance: alert, in no apparent distress Head exam: Present: atraumatic, normocephalic, normal inspection Eye exam: Present: normal appearance, PERRL, EOMI. Absent: scleral icterus, conjunctival injection, periorbital swelling ENT exam: Present: normal exam, mucous membranes moist Neck exam: Present: normal inspection. Absent: tenderness, meningismus, lymphadenopathy Respiratory exam: Present: normal lung sounds bilaterally. Absent: respiratory distress, wheezes, rales, rhonchi, stridor Cardiovascular Exam: Present: regular rate, normal rhythm, normal heart sounds. Absent: systolic murmur, diastolic murmur, rubs, gallop, clicks GI/Abdominal exam: Present: soft, distended, normal bowel sounds, other (fluids wave). Absent: tenderness, guarding, rebound, rigid Extremities exam: Present: normal inspection, full ROM, normal capillary refill. Absent: tenderness, pedal edema, joint swelling, calf tenderness Back exam: Present: normal inspection Neurological exam: Present: alert, oriented X3, CN II-XII intact Psychiatric exam: Present: normal affect, normal mood Skin exam: Present: warm, dry, intact, normal color. Absent: rash Course Vital Signs 03/05/21 03/05/21 03/05/21 14:27 16:22 18:08 Temperature 97.8 F 98.8 F Pulse Rate 61 80 Pulse Rate [ Pulse Oximetery ] Respiratory 20 18 Rate Blood Pressure 109/72 90/56 135/58 Blood Pressure [Left Arm] O2 Sat by Pulse 95 96 Oximetry 03/05/21 03/06/21 03/06/21 20:00 05:00 07:00 Temperature 97.6 F Pulse Rate 85 74 67 Pulse Rate [ Pulse Oximetery ] Respiratory 18 16 16 Rate Blood Pressure 97/56 94/58 100/62 Blood Pressure [Left Arm] O2 Sat by Pulse 95 95 96 Oximetry 03/06/21 03/06/21 03/06/21 08:56 10:15 10:34 Temperature Pulse Rate 63 Pulse Rate [ 63 60 Pulse Oximetery ] Respiratory 18 16 16 Rate Blood Pressure 107/63 Blood Pressure 117/68 109/68 [Left Arm] O2 Sat by Pulse 94 L 96 95 Oximetry 03/06/21 03/06/21 03/06/21 10:48 11:04 11:15 Temperature Pulse Rate Pulse Rate [ 60 61 60 Pulse Oximetery ] Respiratory 16 16 16 Rate Blood Pressure Blood Pressure 108/64 100/62 101/63 [Left Arm] O2 Sat by Pulse 94 L 94 L 95 Oximetry 03/06/21 03/06/21 03/06/21 11:52 12:30 13:00 Temperature Pulse Rate 58 L 57 L 68 Pulse Rate [ Pulse Oximetery ] Respiratory 18 18 18 Rate Blood Pressure 101/63 94/58 93/58 Blood Pressure [Left Arm] O2 Sat by Pulse 97 97 97 Oximetry 03/06/21 03/06/21 14:00 14:43 Temperature 97.6 F Pulse Rate 69 69 Pulse Rate [ Pulse Oximetery ] Respiratory 18 18 Rate Blood Pressure 90/61 90/61 Blood Pressure [Left Arm] O2 Sat by Pulse 97 97 Oximetry Medical Decision Making - Medical Decision Making Upon arrival patient is placed in room 4. Thorough history and physical exam is performed. IV is established. Labs were conducted. Patient was started on 75 mL of saline per hour. Repeat vitals demonstrate improved blood pressure of 135/58. I spoke with Dr. Santana who agreed to admit the patient. I will place Dr. Elizabeth on consult for paracentesis. Patient agreed to this plan and is currently awaiting a bed on the floor - Lab Data Result diagrams: 03/06/21 04:52 03/06/21 04:52 Lab Results 03/05/21 03/05/21 03/05/21 Range/Units 16:22 16:22 16:22 WBC 5.9 (3.8-10.6) k/uL RBC 4.23 L (4.30-5.90) m/uL Hgb 13.0 (13.0-17.5) gm/dL Hct 39.3 (39.0-53.0) % MCV 93.0 (80.0-100.0) fL MCH 30.8 (25.0-35.0) pg MCHC 33.1 (31.0-37.0) g/dL RDW 15.7 H (11.5-15.5) % Plt Count 101 L (150-450) k/uL MPV 9.4 Neutrophils % 78 % Lymphocytes % 10 % Monocytes % 8 % Eosinophils % 2 % Basophils % 1 % Neutrophils # 4.6 (1.3-7.7) k/uL Lymphocytes # 0.6 L (1.0-4.8) k/uL Monocytes # 0.5 (0-1.0) k/uL Eosinophils # 0.1 (0-0.7) k/uL Basophils # 0.1 (0-0.2) k/uL PT 12.4 H (9.0-12.0) sec INR 1.2 H (<1.2) APTT 24.9 (22.0-30.0) sec Sodium 133 L (137-145) mmol/L Potassium 5.7 H (3.5-5.1) mmol/L Chloride 102 (98-107) mmol/L Carbon Dioxide 24 (22-30) mmol/L Anion Gap 7 mmol/L BUN 38 H (9-20) mg/dL Creatinine 1.15 (0.66-1.25) mg/dL Est GFR (CKD-EPI)AfAm 74 (>60 ml/min/1.73 sqM) Est GFR (CKD-EPI)NonAf 64 (>60 ml/min/1.73 sqM) Glucose 103 H (74-99) mg/dL Plasma Lactic Acid Waqas (0.7-2.0) mmol/L Calcium 8.6 (8.4-10.2) mg/dL Total Bilirubin 1.5 H (0.2-1.3) mg/dL AST 43 (17-59) U/L ALT 18 (4-49) U/L Alkaline Phosphatase 62 (38-126) U/L Total Protein 7.2 (6.3-8.2) g/dL Albumin 3.3 L (3.5-5.0) g/dL Lipase 110 (23-300) U/L 03/05/21 Range/Units 16:22 WBC (3.8-10.6) k/uL RBC (4.30-5.90) m/uL Hgb (13.0-17.5) gm/dL Hct (39.0-53.0) % MCV (80.0-100.0) fL MCH (25.0-35.0) pg MCHC (31.0-37.0) g/dL RDW (11.5-15.5) % Plt Count (150-450) k/uL MPV Neutrophils % % Lymphocytes % % Monocytes % % Eosinophils % % Basophils % % Neutrophils # (1.3-7.7) k/uL Lymphocytes # (1.0-4.8) k/uL Monocytes # (0-1.0) k/uL Eosinophils # (0-0.7) k/uL Basophils # (0-0.2) k/uL PT (9.0-12.0) sec INR (<1.2) APTT (22.0-30.0) sec Sodium (137-145) mmol/L Potassium (3.5-5.1) mmol/L Chloride (98-107) mmol/L Carbon Dioxide (22-30) mmol/L Anion Gap mmol/L BUN (9-20) mg/dL Creatinine (0.66-1.25) mg/dL Est GFR (CKD-EPI)AfAm (>60 ml/min/1.73 sqM) Est GFR (CKD-EPI)NonAf (>60 ml/min/1.73 sqM) Glucose (74-99) mg/dL Plasma Lactic Acid Waqas 2.0 (0.7-2.0) mmol/L Calcium (8.4-10.2) mg/dL Total Bilirubin (0.2-1.3) mg/dL AST (17-59) U/L ALT (4-49) U/L Alkaline Phosphatase (38-126) U/L Total Protein (6.3-8.2) g/dL Albumin (3.5-5.0) g/dL Lipase (23-300) U/L Disposition Clinical Impression: Liver cirrhosis, Ascites, Abdominal pain, Hypotension Disposition: ADMITTED IP TO THIS [facility] Condition: Stable Is patient prescribed a controlled substance at d/c from ED?: No Decision to Admit Reason: Admit from EC Decision Date: 03/05/21 Decision Time: 18:35
[2021-03-05] MEDS: SODIUM CHLORIDE 0.9% 1,000 ML IV SCH (18:44)
[2021-03-05] MEDS ORDERED: LORATADINE 10 MG TAB PO PRN (22:31)
[2021-03-05] MEDS ORDERED: traMADol 50 MG TAB PO PRN (22:31)
[2021-03-06 06:22] LABS: Basophils % (A) 1 %; Eosinophils # (A) 0.1 k/uL (0-0.7); Eosinophils % (A) 2 %; HCT 36.5 % (39.0-53.0); HGB 12.2 gm/dL (13.0-17.5); Lymphocytes # (A) 0.6 k/uL (1.0-4.8); Lymphocytes % (A) 13 %; MCH 30.7 pg (25.0-35.0); MCHC 33.3 g/dL (31.0-37.0); MCV 92.3 fL (80.0-100.0); Mean Platelet Volume 8.7; Monocytes # (A) 0.4 k/uL (0-1.0); Monocytes % (A) 9 %; Neutrophils # (A) 3.7 k/uL (1.3-7.7); Neutrophils % (A) 73 %; RBC 3.96 m/uL (4.30-5.90); RDW 15.7 % (11.5-15.5)
[2021-03-06 06:39] LABS: African American GFR (CKD) 83 (>60 ml/min/1.73 sqM); Anion Gap 6 mmol/L; Blood Urea Nitrogen 32 mg/dL (9-20); Calcium 8.6 mg/dL (8.4-10.2); Carbon Dioxide 25 mmol/L (22-30); Chloride 104 mmol/L (98-107); Glucose 77 mg/dL (74-99); Non-African American GFR(CKD) 72 (>60 ml/min/1.73 sqM); Potassium 4.7 mmol/L (3.5-5.1); Sodium 135 mmol/L (137-145)
[2021-03-06 06:44] LABS: Anisocytosis (M) Present; Ovalocytes Present; Poikilocytosis (M) Present
[2021-03-06 06:45] LABS: Platelet Count 83 k/uL (150-450)
[2021-03-06] MEDS: SODIUM CHLORIDE 0.9% 1,000 ML IV SCH (06:58)
[2021-03-06 07:08] VITALS: TEMP 97.6
[2021-03-06] MEDS ORDERED: PANTOPRAZOLE 40 MG TABLET PO SCH (07:30)
[2021-03-06] MEDS ORDERED: ATORVASTATIN 40 MG TAB PO SCH (09:00)
[2021-03-06 11:53] VITALS: RESP 18
[2021-03-06] MEDS: ALBUMIN HUMAN 25% 50 ML in EMPTY BAG 1 BAG IVPB SCH ×3 (12:23→13:15)
--- NOTE | 2021-03-06 12:56 | US ---
Ultrasound-guided paracentesis. DATE OF EXAM: 03/06/2021 CLINICAL HISTORY: Ascites The procedure was discussed with the patient. The risks, complications, benefits, and alternatives we re discussed and any questions were answered. Informed consent was obtained. The patient was placed s upine on the ultrasound table and prepped and draped in the usual sterile fashion. All elements of maximal barrier technique were utilized. Under ultrasound guidance, access into the right lower quadrant was obtained, via the paracentesis catheter system and direct ultrasound guidanc e. Approximately 7.5 liters of straw-colored fluid was removed. The patient was stable throughout the pr ocedure and remained stable upon discharge from Department of Radiology. Sample sent to pathology for analysis. IMPRESSION: Successful paracentesis under ultrasound guidance.
--- NOTE | 2021-03-06 13:04 | P.CONS ---
History of Present Illness - Reason for Consult Consult date: 03/06/21 Cirrhosis of the liver, ascites Requesting physician: Amaury Archer - Chief Complaint Abdominal distention - History of Present Illness This 70-year-old male with a past medical history of decompensated alcoholic cirrhosis of the liver with recurrent ascites who presented to the emergency department for complaints of abdominal distention. Other past medical history includes coronary artery disease status post stent, hyperlipidemia, hypertension, chronic kidney disease and GERD. He states that he noticed increased distention approximately 1-2 weeks ago. He also states he saw his jet piercer operator and states that they adjusted his water pills although he is not sure which one but states that it was cut down by half and told to take every other day. Since then he has noted some increased distention in his abdomen. Patient follows with Dr. Carlson and has had 2 previous paracentesis done in September and October of this year with 11.3 L and 8 L removed respectively. He denies of any lower extremity swelling or shortness of breath. His current medication list states he is on Aldactone 50 mg daily and Lasix 40 mg daily. The patient has also undergone a recent EGD in December of this year with findings of large esophageal varices status post variceal ligation as well as moderate portal hypertensive gastropathy. He also underwent an EGD and colonoscopy in August of this year. EGD with findings of large esophageal varices and portal hypertensive gastropathy. Colonoscopy significant for polypectomy grade 2 internal hemorrhoids. Review of Systems REVIEW OF SYSTEMS: CARDIOPULMONARY: No chest pain or shortness of breath. Gastrointestinal: Abdominal distention/pain. Ascites. No nausea or vomiting. No hematemesis, coffee-ground emesis. No rectal bleeding, or melena. GENITOURINARY: No dysuria or hematuria. MUSCULOSKELETAL: Reports normal range of motion., Joint pain. SKIN: No rashes. No jaundice. ENDOCRINE: No chills, fevers. No excessive weight gain or loss. No polydipsia or polyuria. PSYCHIATRIC: Unremarkable. NEUROLOGY: No change in mental status. Denies dizziness, headache. ENT: Vision unremarkable. CONSTITUTIONAL: No recent weight loss. No fever, chills, night sweats. Past Medical History Past Medical History: GERD/Reflux, Hyperlipidemia, Hypertension, Myocardial In farction ([place]), Renal Disease Additional Past Medical History / Comment(s): clot in liver. esophageal varices. recent ear infection Last Myocardial Infarction Date:: 2012 History of Any Multi-Drug Resistant Organisms: None Reported Past Surgical History: Heart Catheterization With Stent Additional Past Surgical History / Comment(s): 2 heart stents, paracentesis times 2 previously Past Anesthesia/Blood Transfusion Reactions: No Reported Reaction Date of Last Stent Placement:: 2012 Past Psychological History: No Psychological Hx Reported Smoking Status: Former smoker Past Alcohol Use History: None Reported Past Drug Use History: None Reported Medications and Allergies Home Medications Medication Instructions Recorded Confirmed Type Atorvastatin [Lipitor] 40 mg PO DAILY 07/12/14 03/05/21 History traMADol HCl [Ultram] 100 mg PO BID PRN 07/12/14 03/05/21 History Aspirin [Adult Low Dose Aspirin EC] 81 mg PO DAILY 08/06/20 03/05/21 History Atenolol [Tenormin] 25 mg PO DAILY 08/06/20 03/05/21 History Loratadine [Claritin] 10 mg PO DAILY PRN 08/06/20 03/05/21 History Omeprazole 20 mg PO DAILY 08/31/20 03/05/21 History Cholecalciferol (Vitamin D3) 125 mcg PO TH 11/06/20 03/05/21 History [Vitamin D3 (5000 Iu)] Ferocon 1 cap PO DAILY 11/06/20 03/05/21 History Furosemide [Lasix] 40 mg PO DAILY #30 tablet 11/07/20 03/05/21 Rx Benazepril HCl 10 mg PO DAILY 03/05/21 03/05/21 History Spironolactone [Aldactone] 50 mg PO DAILY #90 tab 03/06/21 Rx Allergies Allergy/AdvReac Type Severity Reaction Status Date / Time No Known Allergies Allergy Verified 03/05/21 18:24 Physical Exam Vitals: Vital Signs Temp Pulse Resp BP Pulse Ox 03/06/21 07:00 97.6 F 67 16 100/62 96 03/06/21 05:00 74 16 94/58 95 03/05/21 20:00 85 18 97/56 95 03/05/21 18:08 98.8 F 80 18 135/58 96 03/05/21 16:22 90/56 03/05/21 14:27 97.8 F 61 20 109/72 95 General appearance: The patient is alert, oriented, appears in no acute distress. HET: Head is normocephalic and atraumatic. Conjunctiva pink. Sclera anicteric. Neck: Supple without lymphadenopathy. Trachea midline. Heart: S1 S2. Regular rate and rhythm. Lungs: Clear to auscultation. Abdomen: Soft, diffuse tenderness, distended, with bowel sounds. No guarding or rigidity. Skin: No rashes. No jaundice. Extremities: Normal skin color and turgor. No pedal edema. Neurological: No focal deficits. Alert and oriented 3.. Results CBC & Chem 7: 03/06/21 04:52 03/06/21 04:52 Labs: Abnormal Lab Results - Last 24 Hours (Table) 03/05/21 03/05/21 03/05/21 Range/Units 16:22 16:22 16:22 RBC 4.23 L (4.30-5.90) m/uL Hgb (13.0-17.5) gm/dL Hct (39.0-53.0) % RDW 15.7 H (11.5-15.5) % Plt Count 101 L (150-450) k/uL Lymphocytes # 0.6 L (1.0-4.8) k/uL PT 12.4 H (9.0-12.0) sec INR 1.2 H (<1.2) Sodium 133 L (137-145) mmol/L Potassium 5.7 H (3.5-5.1) mmol/L BUN 38 H (9-20) mg/dL Glucose 103 H (74-99) mg/dL Total Bilirubin 1.5 H (0.2-1.3) mg/dL Albumin 3.3 L (3.5-5.0) g/dL 03/06/21 03/06/21 Range/Units 04:52 04:52 RBC 3.96 L (4.30-5.90) m/uL Hgb 12.2 L (13.0-17.5) gm/dL Hct 36.5 L (39.0-53.0) % RDW 15.7 H (11.5-15.5) % Plt Count 83 L (150-450) k/uL Lymphocytes # 0.6 L (1.0-4.8) k/uL PT (9.0-12.0) sec INR (<1.2) Sodium 135 L (137-145) mmol/L Potassium (3.5-5.1) mmol/L BUN 32 H (9-20) mg/dL Glucose (74-99) mg/dL Total Bilirubin (0.2-1.3) mg/dL Albumin (3.5-5.0) g/dL Comments: Abdominal ultrasound Limited: Moderate amount of ascites Assessment and Plan (1) Ascites Narrative/Plan: 70-year-old male with a history of decompensated alcoholic cirrhosis of the liver with recurrent ascites diagnosed approximately 8 years ago came into the emergency department for increased abdominal distention. Patient has multiple comorbidities including coronary artery disease and hypertension who recently states he saw his jet piercer operator and states they decreased his water pills by half and told to take every other day however he is unsure of which medication. Had 2 previous paracentesis in September and October. He denies any fevers or chills. No shortness of breath. He had abdominal ultrasound that showed moderate amount of ascites. Will order palliative paracentesis with fluid studies. Status: Acute Code(s): R18.8 - OTHER ASCITES SNOMED Code(s): 343928987 (2) ALC (alcoholic liver cirrhosis) Status: Acute Code(s): K70.30 - ALCOHOLIC CIRRHOSIS OF LIVER WITHOUT ASCITES SNOMED Code(s): 602604939 Plan: 1. Continue symptomatic and supportive care 2. Interventional radiology consulted for paracentesis with fluid studies 3. Albumin per protocol 4. Patient may have low sodium diet 5. Continue Aldactone 50 mg daily and Lasix 40 mg daily 6. Ammonia level ordered 7. Patient is cleared by GI for discharge home Thank you for this consultation, we will continue to follow. Dr. Rose Carlson I agree with the dictator's note, documented as a scribe by Debi Lombardi.
[2021-03-06 13:48] LABS: Appearance,BF Clear
[2021-03-06 14:14] LABS: Nucleated Cells, Body Fluid 25 /uL
[2021-03-06 14:15] LABS: RBC, Body Fluid 365 /uL
[2021-03-06 14:17] LABS: Mononuclear WBC,Body Fluid 99 %; Polynuclear WBC,Body Fluid 1 %; Total Cells Counted,Body Fluid 100
[2021-03-06 14:18] VITALS: BP 90/61; PULSE 69
[2021-03-06 22:27] LABS: Total Protein, Body Fluid 2300 mg/dL
[2021-03-07 04:10] LABS: Albumin, Fluid Source Peritoneal Fluid
[2021-03-07] MEDS ORDERED: FUROSEMIDE 40 MG TAB PO SCH (09:00)
[2021-03-07] MEDS ORDERED: SPIRONOLACTONE 25 MG TAB PO SCH (09:00)
== END 2021-03-06 14:47 | disposition home or self-care (01) ==
LOC: EC 14:24 → INTOOBSV 18:36 → 5NMEDONC 18:36 → UNDODISIN 03-06 14:47
PROVIDERS: ADMIT Family Medicine; ATTEND Family Medicine
PROC: 0W9G3ZZ Drainage of Peritoneal Cavity, Percutaneous Approach (ICD-10-PCS; principal; 2021-03-06)
DX: K70.31 Alcoholic cirrhosis of liver with ascites (principal); I95.9 Hypotension, unspecified; K76.6 Portal hypertension; K31.89 Other diseases of stomach and duodenum; K72.90 Hepatic failure, unspecified without coma; I12.9 Hypertensive chronic kidney disease with stage 1 through stage 4 chronic kidney disease, or unspecified chronic kidney disease; N18.9 Chronic kidney disease, unspecified; K21.9 Gastro-esophageal reflux disease without esophagitis; I25.10 Atherosclerotic heart disease of native coronary artery without angina pectoris; K64.1 Second degree hemorrhoids; E78.5 Hyperlipidemia, unspecified; I25.2 Old myocardial infarction; Z20.822 Contact with and (suspected) exposure to COVID-19; Z79.82 Long term (current) use of aspirin; Z79.899 Other long term (current) drug therapy; Z87.891 Personal history of nicotine dependence; Z86.010 Personal history of colon polyps; Z87.19 Personal history of other diseases of the digestive system; Z95.5 Presence of coronary angioplasty implant and graft; Z98.890 Other specified postprocedural states
CPT/HCPCS: 99285; 36415 ×2; 88108; 88305; 80053; 80048; 82042; 89050; 82140; 82565; 83605; 83690; 85025 ×2; 85049; 85610; 85730; 87070; 87205; 87075; 84157; 87635; 76705; 49083; G0378 ×2; P9047

== ENCOUNTER 2021-04-03 08:55 | Day surgery (SDC) | payer MEDICARE ==
[2021-04-03 09:37] VITALS: RESP 16; TEMP 98.3
[2021-04-03 09:48] LABS: Mean Platelet Volume 8.3; Platelet Count 101 k/uL (150-450)
[2021-04-03] MEDS: ALBUMIN HUMAN 25% 50 ML in EMPTY BAG 1 BAG IVPB SCH ×4 (09:52→11:16)
[2021-04-03 10:05] LABS: INR 1.2 (<1.2); Prothrombin Time 12.3 sec (9.0-12.0)
[2021-04-03 11:37] VITALS: BP 107/58; PULSE 73
--- NOTE | 2021-04-03 12:42 | US ---
EXAMINATION TYPE: US paracentesis abd w/image DATE OF EXAM: 04/03/2021 COMPARISON: NONE HISTORY: Ascites. PROCEDURE: Maximal barrier technique was utilized. The skin overlying a suitable pocket of fluid was localized with ultrasound and the overlying skin was prepped and draped. Ultrasound was utilized with sterile technique. Lidocaine was used for local anesthesia and a skin farheen made with a scalpel. Catheter was advanced under direct ultrasound guidance into a suitable pocket of fluid and approximately 9.9 liter s of serous fluid were removed. Catheter was withdrawn and hemostasis achieved. There is no immedia te complication; the patient is discharged in stable condition. IMPRESSION: STATUS POST ULTRASOUND GUIDED PARACENTESIS FOR PALLIATION OF ASCITES. THIS PROCEDURE WA S PERFORMED BY THE UNDERSIGNED.
== END 2021-04-03 11:58 | disposition home or self-care (01) ==
LOC: RADPROMAIN 08:55
PROVIDERS: ATTEND Family Medicine
DX: K70.31 Alcoholic cirrhosis of liver with ascites (principal)
CPT/HCPCS: 82565; 85049; 85610; 36415; 49083; P9047

== ENCOUNTER 2021-04-12 07:53 | Day surgery (SDC) | payer MEDICARE ==
[2021-04-10 12:11] VITALS: BMI 23.0
[~2021-04-12 07:53] MED LIST changes: -ALBUMIN HUMAN 25% 50 ML in EMPTY BAG 1 BAG IVPB SCH; +LACTATED RINGERS 1,000 ML IV SCH
[2021-04-12 08:17] VITALS: TEMP 98.1
[2021-04-12] MEDS ORDERED: LIDOCAINE 1% (10MG/ML) FOR IV START INTRADERMA ONE (08:20)
[2021-04-12] MEDS ORDERED: LIDOCAINE 1% INJ 10MG/ML (20 ML MDV) ONE (08:58)
[2021-04-12] MEDS ORDERED: PROPOFOL 10 MG/ML 20 ML VIAL IV ONE (08:58)
--- NOTE | 2021-04-12 09:13 | P.PCN ---
Date of Procedure: 04/12/21 Procedure(s) Performed: BRIEF HISTORY: Patient is a 70-year-old, pleasant, male with history of alcohol cirrhosis and esophageal varices scheduled for an upper endoscopy for possible esophageal variceal ligation. Last EGD was performed in August 2020. PROCEDURE PERFORMED: Esophagogastroduodenoscopy with esophageal variceal ligation. PREOPERATIVE DIAGNOSIS: Follow-up esophageal varices. IV sedation per anesthesia. PROCEDURE: After informed consent was obtained, the patient was brought into the endoscopy unit. IV sedation was administered by Anesthesia under continuous monitoring. Initially the Olympus GIF-140 video endoscope was inserted into the mouth. Esophagus intubated without any difficulty. It was gradually advanced into the stomach and duodenum and carefully examined. The bulb and the second part of the duodenum appeared normal. The scope at this time was withdrawn to the stomach, adequately insufflated with air, and upon careful examination, mucosa of the antrum, a normal. There were changes of moderate to severe portal hypertensive gastropathy in the body, cardia and the fundus. The scope was then withdrawn into the esophagus. The GE junction was located at 39 cm from the incisors. There were large mid and distal esophageal varices seen. At this time the scope was removed esophageal variceal ligation equipment was was inserted into the scope and esophagus intubated without any difficulty and was gradually advanced into the distal esophagus. Using suction total of 6. were deployed on the esophageal varices. The rest of the esophagus appeared normal. There were no erosions or ulcerations seen and the patient tolerated the procedure well. IMPRESSION: 1. Large mid and distal esophageal varices status post variceal ligation as described above. 2. Moderate to severe portal hypertensive gastropathy. RECOMMENDATIONS: The findings of this examination were discussed with the patient as well as his family. He will remain on a soft diet today. We'll plan on a repeat EGD with variceal ligation in 6 months..
[2021-04-12 09:42] VITALS: BP 127/74; PULSE 66; RESP 16
== END 2021-04-12 09:50 | disposition home or self-care (01) ==
LOC: ORWHC2ENDO 07:53
PROVIDERS: ATTEND Internal Medicine Gastroenterology
DX: K70.30 Alcoholic cirrhosis of liver without ascites (principal); I85.10 Secondary esophageal varices without bleeding; K76.6 Portal hypertension; K31.89 Other diseases of stomach and duodenum; I25.10 Atherosclerotic heart disease of native coronary artery without angina pectoris; I10 Essential (primary) hypertension; E78.5 Hyperlipidemia, unspecified; Z95.5 Presence of coronary angioplasty implant and graft; I25.2 Old myocardial infarction; K21.9 Gastro-esophageal reflux disease without esophagitis; Z79.82 Long term (current) use of aspirin; Z79.899 Other long term (current) drug therapy
CPT/HCPCS: 43244; J2001; J2704

== ENCOUNTER 2021-04-16 12:01 | Day surgery (SDC) | payer MEDICARE ==
[2021-04-16 12:31] LABS: Mean Platelet Volume 8.2
[2021-04-16 12:55] LABS: Platelet Count 95 k/uL (150-450)
[2021-04-16 13:13] LABS: INR 1.1 (<1.2); Prothrombin Time 11.8 sec (9.0-12.0)
[2021-04-16 13:30] VITALS: TEMP 98.4
[2021-04-16] MEDS: ALBUMIN HUMAN 25% 50 ML in EMPTY BAG 1 BAG IVPB SCH ×4 (13:44→14:37)
[2021-04-16 14:53] VITALS: RESP 16
[2021-04-16 15:27] VITALS: BP 104/52; PULSE 75
--- NOTE | 2021-04-16 15:30 | US ---
EXAMINATION TYPE: US paracentesis abd w/image DATE OF EXAM: 04/16/2021 COMPARISON: NONE HISTORY: Ascites. PROCEDURE: Maximal barrier technique was utilized. The skin overlying a suitable pocket of fluid was localized with ultrasound and the overlying skin was prepped and draped. Ultrasound was utilized with sterile technique. Lidocaine was used for local anesthesia and a skin farheen made with a scalpel. Catheter was advanced under direct ultrasound guidance into a suitable pocket of fluid and approximately 8.8 liter s of serous fluid were removed. Catheter was withdrawn and hemostasis achieved. There is no immedia te complication; the patient is discharged in stable condition. IMPRESSION: STATUS POST ULTRASOUND GUIDED PARACENTESIS FOR PALLIATION OF ASCITES. THIS PROCEDURE WA S PERFORMED BY THE UNDERSIGNED.
== END 2021-04-16 15:20 | disposition home or self-care (01) ==
LOC: RADPROMAIN 12:01
PROVIDERS: ATTEND Family Medicine
DX: K70.31 Alcoholic cirrhosis of liver with ascites (principal)
CPT/HCPCS: 82565; 85049; 85610; 36415; 49083; P9047

== ENCOUNTER 2021-04-30 12:09 | Day surgery (SDC) | payer MEDICARE ==
[2021-04-30 12:27] VITALS: RESP 16; TEMP 97.7
[2021-04-30 12:48] LABS: Mean Platelet Volume 7.7; Platelet Count 118 k/uL (150-450)
[2021-04-30 13:08] LABS: INR 1.1 (<1.2); Prothrombin Time 11.6 sec (9.0-12.0)
[2021-04-30] MEDS: ALBUMIN HUMAN 25% 50 ML in EMPTY BAG 1 BAG IVPB SCH ×4 (13:49→14:37)
[2021-04-30 15:09] VITALS: BP 121/75; PULSE 79
--- NOTE | 2021-04-30 15:47 | US ---
Ultrasound-guided paracentesis. DATE OF EXAM: 04/30/2021 CLINICAL HISTORY: Ascites The procedure was discussed with the patient. The risks, complications, benefits, and alternatives we re discussed and any questions were answered. Informed consent was obtained. The patient was placed s upine on the ultrasound table and prepped and draped in the usual sterile fashion. All elements of maximal barrier technique were utilized. Under ultrasound guidance, access into the right lower quadrant was obtained, via the paracentesis catheter system and direct ultrasound guidanc e. Approximately 8.4 liters of straw-colored fluid was removed. The patient was stable throughout the pr ocedure and remained stable upon discharge from Department of Radiology. IMPRESSION: Successful paracentesis under ultrasound guidance.
== END 2021-04-30 15:15 | disposition home or self-care (01) ==
LOC: RADPROMAIN 12:09
PROVIDERS: ATTEND Family Medicine
DX: K70.31 Alcoholic cirrhosis of liver with ascites (principal)
CPT/HCPCS: 82565; 85049; 85610; 36415; 49083; P9047

== ENCOUNTER → 2021-05-09 | Outpatient (CLI) | payer MEDICARE ==
[2021-05-09 23:32] LABS: INR 1.07 (0.90-1.11)
[2021-05-10 03:54] LABS: African American GFR (CKD) 70.1 (60.0-200.0); Anion Gap 10.5 mmol/L (10.00-18.00); Bilirubin, Conjugated 0.3 mg/dL (0.20-0.40); Bilirubin,Unconjugated 0.7 mg/dL (0.20-1.00); Blood Urea Nitrogen 22.9 mg/dL (9.0-27.0); Carbon Dioxide 24.5 mmol/L (20.0-27.5); Non-African American GFR(CKD) 60.5 (60.0-200.0)
== END | disposition home or self-care (01) ==
LOC: LABWHC1 14:23
PROVIDERS: ATTEND Internal Medicine Gastroenterology
DX: I81 Portal vein thrombosis (principal); K70.30 Alcoholic cirrhosis of liver without ascites; D68.2 Hereditary deficiency of other clotting factors; R18.8 Other ascites; Z87.891 Personal history of nicotine dependence
CPT/HCPCS: 36415; 80051; 82248; 82565; 84075; 84450; 84460; 84520; 85610

== ENCOUNTER 2021-05-14 12:14 | Day surgery (SDC) | payer MEDICARE ==
[2021-05-14 12:44] VITALS: TEMP 97.4
[2021-05-14 12:49] LABS: Mean Platelet Volume 8.2
[2021-05-14 12:55] LABS: Platelet Count 95 k/uL (150-450)
[2021-05-14 13:01] LABS: INR 1.1 (<1.2); Prothrombin Time 11.8 sec (9.0-12.0)
[2021-05-14] MEDS: ALBUMIN HUMAN 25% 50 ML in EMPTY BAG 1 BAG IVPB SCH ×4 (13:34→14:26)
[2021-05-14 13:57] VITALS: RESP 16
[2021-05-14 15:25] VITALS: BP 121/77; PULSE 77
--- NOTE | 2021-05-14 15:46 | US ---
EXAMINATION TYPE: US paracentesis abd w/image DATE OF EXAM: 05/14/2021 COMPARISON: NONE HISTORY: Ascites. PROCEDURE: Maximal barrier technique was utilized. The skin overlying a suitable pocket of fluid was localized with ultrasound and the overlying skin was prepped and draped. Ultrasound was utilized with sterile technique. Lidocaine was used for local anesthesia and a skin farheen made with a scalpel. Catheter was advanced under direct ultrasound guidance into a suitable pocket of fluid and approximately 9.6 liter s of serous fluid were removed. Catheter was withdrawn and hemostasis achieved. There is no immedia te complication; the patient is discharged in stable condition. IMPRESSION: STATUS POST ULTRASOUND GUIDED PARACENTESIS FOR PALLIATION OF ASCITES. THIS PROCEDURE WA S PERFORMED BY THE UNDERSIGNED.
== END 2021-05-14 15:25 | disposition home or self-care (01) ==
LOC: RADPROMAIN 12:14
PROVIDERS: ATTEND Family Medicine
DX: K70.31 Alcoholic cirrhosis of liver with ascites (principal)
CPT/HCPCS: 82565; 85049; 85610; 36415; 49083; P9047

== ENCOUNTER 2021-05-28 12:15 | Day surgery (SDC) | payer MEDICARE ==
[2021-05-28 12:41] LABS: Mean Platelet Volume 8.3; Platelet Count 114 k/uL (150-450)
[2021-05-28 12:45] VITALS: TEMP 97.8
[2021-05-28 12:51] LABS: INR 1.1 (<1.2); Prothrombin Time 11.4 sec (9.0-12.0)
[2021-05-28] MEDS: ALBUMIN HUMAN 25% 50 ML in EMPTY BAG 1 BAG IVPB SCH ×4 (12:59→14:05)
[2021-05-28 13:35] VITALS: RESP 16
[2021-05-28 14:30] VITALS: BP 99/58; PULSE 75
--- NOTE | 2021-05-28 15:45 | US ---
Ultrasound-guided paracentesis. DATE OF EXAM: 05/28/2021 CLINICAL HISTORY: Ascites The procedure was discussed with the patient. The risks, complications, benefits, and alternatives we re discussed and any questions were answered. Informed consent was obtained. The patient was placed s upine on the ultrasound table and prepped and draped in the usual sterile fashion. All elements of maximal barrier technique were utilized. Under ultrasound guidance, access into the right lower quadrant was obtained, via the paracentesis catheter system and direct ultrasound guidanc e. Approximately 7.1 liters of straw-colored fluid was removed. The patient was stable throughout the pr ocedure and remained stable upon discharge from Department of Radiology. IMPRESSION: Successful paracentesis under ultrasound guidance.
== END 2021-05-28 14:28 | disposition home or self-care (01) ==
LOC: RADPROMAIN 12:15
PROVIDERS: ATTEND Family Medicine
DX: R18.8 Other ascites (principal)
CPT/HCPCS: 82565; 85049; 85610; 36415; 49083; P9047

== ENCOUNTER → 2021-06-11 | Day surgery (SDC) | payer MEDICARE ==
[2021-06-11 12:38] VITALS: RESP 16; TEMP 97.5
[2021-06-11 13:38] LABS: Platelet Count 95 k/uL (150-450)
[2021-06-11 13:39] LABS: INR 1.1 (<1.2); Prothrombin Time 11.2 sec (9.0-12.0)
[2021-06-11] MEDS: ALBUMIN HUMAN 25% 50 ML in EMPTY BAG 1 BAG IVPB SCH ×4 (14:12→14:58)
[2021-06-11 15:16] VITALS: BP 107/58; PULSE 71
--- NOTE | 2021-06-12 08:36 | US ---
Ultrasound-guided paracentesis. DATE OF EXAM: 06/11/2021 CLINICAL HISTORY: Ascites The procedure was discussed with the patient. The risks, complications, benefits, and alternatives we re discussed and any questions were answered. Informed consent was obtained. The patient was placed s upine on the ultrasound table and prepped and draped in the usual sterile fashion. All elements of maximal barrier technique were utilized. Under ultrasound guidance, access into the right lower quadrant was obtained, via the paracentesis catheter system and direct ultrasound guidanc e. Approximately 5.7 liters of straw-colored fluid was removed. The patient was stable throughout the pr ocedure and remained stable upon discharge from Department of Radiology. IMPRESSION: Successful paracentesis under ultrasound guidance.
== END ==
LOC: RADPROMAIN 12:15
PROVIDERS: ATTEND Family Medicine
DX: K70.31 Alcoholic cirrhosis of liver with ascites (principal)
CPT/HCPCS: 82565; 85049; 85610; 36415; 49083; P9047

== ENCOUNTER → 2021-06-20 | Outpatient (CLI) | payer MEDICARE ==
[2021-06-21 04:02] LABS: African American GFR (CKD) 69.6 (60.0-200.0); BUN/Creat Ratio 19.83 Ratio (12.00-20.00); Blood Urea Nitrogen 23.8 mg/dL (9.0-27.0); Calcium 9.3 mg/dL (8.7-10.3); Non-African American GFR(CKD) 60.1 (60.0-200.0); Potassium 4.4 mmol/L (3.5-5.5)
== END | disposition home or self-care (01) ==
LOC: LABWHC1 14:18
PROVIDERS: ATTEND Nurse Practitioner Family
DX: K74.60 Unspecified cirrhosis of liver (principal)
CPT/HCPCS: 36415; 80048

== ENCOUNTER → 2021-06-25 | Day surgery (SDC) | payer MEDICARE ==
[2021-06-25 12:48] LABS: Mean Platelet Volume 8.3
[2021-06-25 12:55] VITALS: TEMP 99.1
[2021-06-25 12:59] LABS: INR 1.1 (<1.2); Prothrombin Time 11.8 sec (9.0-12.0)
[2021-06-25] MEDS: ALBUMIN HUMAN 25% 50 ML in EMPTY BAG 1 BAG IVPB SCH ×4 (13:29→14:33)
[2021-06-25 13:57] LABS: Platelet Count 96 k/uL (150-450)
--- NOTE | 2021-06-25 14:42 | US ---
Ultrasound-guided paracentesis. DATE OF EXAM: 06/25/2021 CLINICAL HISTORY: Ascites The procedure was discussed with the patient. The risks, complications, benefits, and alternatives we re discussed and any questions were answered. Informed consent was obtained. The patient was placed s upine on the ultrasound table and prepped and draped in the usual sterile fashion. All elements of maximal barrier technique were utilized. Under ultrasound guidance, access into the right lower quadrant was obtained, via the paracentesis catheter system and direct ultrasound guidanc e. Approximately 7.5 liters of straw-colored fluid was removed. The patient was stable throughout the pr ocedure and remained stable upon discharge from Department of Radiology. IMPRESSION: Successful paracentesis under ultrasound guidance.
[2021-06-25 14:58] VITALS: BP 105/58; PULSE 68; RESP 14
== END ==
LOC: RADPROMAIN 12:22
PROVIDERS: ATTEND Family Medicine
DX: K70.31 Alcoholic cirrhosis of liver with ascites (principal)
CPT/HCPCS: 82565; 85049; 85610; 36415; 49083; P9047

== ENCOUNTER 2021-07-09 12:25 | Day surgery (SDC) | payer MEDICARE ==
[2021-07-09 13:08] LABS: Mean Platelet Volume 8.2
[2021-07-09 13:13] VITALS: RESP 16; TEMP 97.6
[2021-07-09 13:13] LABS: Platelet Count 86 k/uL (150-450)
[2021-07-09 13:27] LABS: INR 1.1 (<1.2); Prothrombin Time 11.8 sec (9.0-12.0)
[2021-07-09] MEDS: ALBUMIN HUMAN 25% 50 ML in EMPTY BAG 1 BAG IVPB SCH ×3 (13:31→14:20)
[2021-07-09 14:49] VITALS: BP 105/59; PULSE 66
--- NOTE | 2021-07-10 08:26 | US ---
Ultrasound-guided paracentesis. DATE OF EXAM: 07/09/2021 CLINICAL HISTORY: Ascites The procedure was discussed with the patient. The risks, complications, benefits, and alternatives we re discussed and any questions were answered. Informed consent was obtained. The patient was placed s upine on the ultrasound table and prepped and draped in the usual sterile fashion. All elements of maximal barrier technique were utilized. Under ultrasound guidance, access into the right lower quadrant was obtained, via the paracentesis catheter system and direct ultrasound guidanc e. Approximately 5.1 liters of straw-colored fluid was removed. The patient was stable throughout the pr ocedure and remained stable upon discharge from Department of Radiology. IMPRESSION: Successful paracentesis under ultrasound guidance.
== END 2021-07-09 15:02 | disposition home or self-care (01) ==
LOC: RADPROMAIN 12:25
PROVIDERS: ATTEND Family Medicine
DX: K70.31 Alcoholic cirrhosis of liver with ascites (principal)
CPT/HCPCS: 82565; 85049; 85610; 36415; 49083; P9047

== ENCOUNTER 2021-07-23 12:15 | Day surgery (SDC) | payer MEDICARE ==
[2021-07-23 12:50] LABS: Mean Platelet Volume 7.9
[2021-07-23 12:53] VITALS: BP 113/73; PULSE 75; RESP 16; TEMP 97.9
[2021-07-23 12:53] LABS: Platelet Count 92 k/uL (150-450)
[2021-07-23 13:00] LABS: INR 1.1 (<1.2); Prothrombin Time 11.7 sec (9.0-12.0)
[2021-07-23] MEDS: ALBUMIN HUMAN 25% 50 ML in EMPTY BAG 1 BAG IVPB SCH (14:03)
--- NOTE | 2021-07-23 17:22 | US ---
Discontinued paracentesis HISTORY: Ascites Moderate ascites is present noted on limited ultrasound. Following discussion with the patient, deborah faust elected to reschedule procedure IMPRESSION: Discontinued paracentesis
== END 2021-07-23 13:50 | disposition home or self-care (01) ==
LOC: RADPROMAIN 12:15
PROVIDERS: ATTEND Family Medicine
DX: K70.31 Alcoholic cirrhosis of liver with ascites (principal)
CPT/HCPCS: 36415; 76705; 82565; 85049; 85610

== ENCOUNTER 2021-08-07 08:56 | Day surgery (SDC) | payer MEDICARE ==
[2021-08-07 09:31] LABS: HCT 38.3 % (39.0-53.0); HGB 12.4 gm/dL (13.0-17.5); MCH 29.9 pg (25.0-35.0); MCHC 32.5 g/dL (31.0-37.0); Mean Platelet Volume 8.4; Platelet Count 104 k/uL (150-450); RBC 4.16 m/uL (4.30-5.90); RDW 14.7 % (11.5-15.5); WBC 5.6 k/uL (3.8-10.6)
[2021-08-07 09:36] LABS: INR 1.1 (<1.2)
[2021-08-07 09:38] VITALS: TEMP 97.9
[2021-08-07 09:43] LABS: Albumin 3.6 g/dL (3.5-5.0); Calcium 8.8 mg/dL (8.4-10.2); Total Bilirubin 1.1 mg/dL (0.2-1.3); Total Protein 7.1 g/dL (6.3-8.2)
[2021-08-07] MEDS: ALBUMIN HUMAN 25% 50 ML in EMPTY BAG 1 BAG IVPB SCH ×4 (10:13→10:58)
[2021-08-07 10:17] VITALS: RESP 14
[2021-08-07 11:47] VITALS: PULSE 63
[2021-08-07 12:06] VITALS: BP 86/51
--- NOTE | 2021-08-07 13:05 | US ---
Ultrasound-guided paracentesis. DATE OF EXAM: 08/07/2021 CLINICAL HISTORY: Ascites The procedure was discussed with the patient. The risks, complications, benefits, and alternatives we re discussed and any questions were answered. Informed consent was obtained. The patient was placed s upine on the ultrasound table and prepped and draped in the usual sterile fashion. All elements of maximal barrier technique were utilized. Under ultrasound guidance, access into the right lower quadrant was obtained, via the paracentesis catheter system and direct ultrasound guidanc e. Approximately 9.1 liters of straw-colored fluid was removed. The patient was stable throughout the pr ocedure and remained stable upon discharge from Department of Radiology. IMPRESSION: Successful paracentesis under ultrasound guidance.
== END 2021-08-07 12:10 | disposition home or self-care (01) ==
LOC: RADPROMAIN 08:56
PROVIDERS: ATTEND Family Medicine
DX: K70.30 Alcoholic cirrhosis of liver without ascites (principal); R18.8 Other ascites
CPT/HCPCS: 80053; 85027; 85610; 36415; 49083; P9047

== ENCOUNTER 2021-08-07 12:14 | Emergency (ER) | payer MEDICARE ==
[2021-08-07] MEDS ORDERED: SODIUM CHLORIDE 0.9% 500 ML 500 ML IV ONE ×2 (12:45→13:55)
--- NOTE | 2021-08-07 13:15 | ED ---
General Adult HPI - General Chief complaint: Recheck/Abnormal Lab/Rx Stated complaint: Low BP Time Seen by Provider: 08/07/21 12:15 Source: patient, family, EMS, RN notes reviewed, old records reviewed Mode of arrival: wheelchair - History of Present Illness Initial comments: This is a 71-year-old male who presents emergency Department stating he had 9.1 L removed when they did a paracentesis. Patient states after that he had a low blood pressure and he was given albumin and he drinks fluids but his pressure would come up since then the emergency department. Patient himself denies any symptoms. Patient denies lightheadedness or dizziness. Patient shortness of breath or difficulty breathing. Patient denies any abdominal pain. Patient states he feels good enough to go home right now but they told to come on over and get evaluated. - Related Data Home Medications Medication Instructions Recorded Confirmed Atorvastatin [Lipitor] 40 mg PO DAILY@1300 07/12/14 08/07/21 traMADol HCl [Ultram] 100 mg PO BID PRN 07/12/14 08/07/21 Aspirin [Adult Low Dose Aspirin EC] 81 mg PO DAILY@1300 08/06/20 08/07/21 Atenolol [Tenormin] 25 mg PO DAILY@1300 08/06/20 08/07/21 Loratadine [Claritin] 10 mg PO DAILY@1300 08/06/20 08/07/21 Omeprazole 20 mg PO DAILY@1300 08/31/20 08/07/21 Cholecalciferol (Vitamin D3) 125 mcg PO 11/06/20 08/07/21 [Vitamin D3 (5000 Iu)] Ferocon 1 cap PO DAILY@1300 11/06/20 08/07/21 Fluticasone Nasal [place] [Flonase 1 spray EA NOSTRIL 03/25/21 08/07/21 Nasal [place]] Furosemide [Lasix] 40 mg PO BID 07/09/21 08/07/21 Amitriptyline HCl [Elavil] 10 mg PO 08/07/21 08/07/21 Nitroglycerin Sl Tabs [Nitrostat] 0.4 mg SUBLINGUAL Q5M PRN 08/07/21 08/07/21 Spironolactone 50 mg PO BID 08/07/21 08/07/21 Allergies Allergy/AdvReac Type Severity Reaction Status Date / Time No Known Allergies Allergy Verified 08/07/21 09:41 Review of Systems ROS Statement: Those systems with pertinent positive or pertinent negative responses have been documented in the HPI. ROS Other: All systems not noted in ROS Statement are negative. Past Medical History Past Medical History: GERD/Reflux, Hyperlipidemia, Hypertension, Liver Disease, Myocardial Infarction ([place]), Renal Disease Additional Past Medical History / Comment(s): clot in liver. esophageal varices. liver failure Last Myocardial Infarction Date:: 2012 History of Any Multi-Drug Resistant Organisms: None Reported Past Surgical History: Heart Catheterization With Stent Additional Past Surgical History / Comment(s): 2 heart stents, multiple large volume paracentesis procedures Past Anesthesia/Blood Transfusion Reactions: No Reported Reaction Date of Last Stent Placement:: 2012 Past Psychological History: No Psychological Hx Reported Smoking Status: Former smoker Past Alcohol Use History: None Reported Past Drug Use History: None Reported General Exam - General Exam Comments Initial Comments: GENERAL: Patient is well-developed and well-nourished. Patient is nontoxic and well- hydrated and is in no acute distress. ENT: Neck is soft and supple. No significant lymphadenopathy is noted. Oropharynx is clear. Moist mucous membranes. Neck has full range of motion without eliciting any pain. EYES: The sclera were anicteric and conjunctiva were pink and moist. Extraocular movements were intact and pupils were equal round and reactive to light. Eyelids were unremarkable. PULMONARY: Unlabored respirations. Good breath sounds bilaterally. No audible rales rhonchi or wheezing was noted. CARDIOVASCULAR: There is a regular rate and rhythm without any murmurs gallops or rubs. ABDOMEN: Soft and nontender with normal bowel sounds. SKIN: Skin is clear with no lesions or rashes and otherwise unremarkable. NEUROLOGIC: Patient is alert and oriented x3. Cranial nerves II through XII are grossly intact. Motor and sensory are also intact. Normal speech, volume and content. Symmetrical smile. MUSCULOSKELETAL: Normal extremities with adequate strength and full range of motion. LYMPHATICS: No significant lymphadenopathy is noted PSYCHIATRIC: Normal psychiatric evaluation. Course Vital Signs 08/07/21 08/07/21 08/07/21 12:18 13:36 13:45 Temperature 97.0 F L 97.8 F Pulse Rate 69 60 Respiratory 18 16 18 Rate Blood Pressure 90/54 102/52 Blood Pressure 93/49 [Right Arm Sitting] Blood Pressure 92/55 [Right Arm Supine] Blood Pressure 89/45 [Standing] O2 Sat by Pulse 99 100 Oximetry 08/07/21 14:14 Temperature Pulse Rate 62 Respiratory 16 Rate Blood Pressure 101/56 Blood Pressure [Right Arm Sitting] Blood Pressure [Right Arm Supine] Blood Pressure [Standing] O2 Sat by Pulse 96 Oximetry Medical Decision Making - Medical Decision Making Patient's blood pressure systolic was 102 he had no symptoms he was able to ambulate and had no symptoms during that. Patient was requesting a home. I reviewed his old blood pressures from multiple past visits he was often in the 90s in the low 100s. Patient will be discharged home Disposition Clinical Impression: Transient hypotension Disposition: HOME SELF-CARE Condition: Good Instructions (If sedation given, give patient instructions): Hypotension (ED) Is patient prescribed a controlled substance at d/c from ED?: No Referrals: Amaury Archer MD [Primary Care Provider] - 1-2 days Time of Disposition: 14:19
[2021-08-07 13:46] VITALS: TEMP 97.8
[2021-08-07 14:14] VITALS: BP 101/56; PULSE 62; RESP 16
== END 2021-08-07 14:25 | disposition home or self-care (01) ==
LOC: EC 12:14
DX: I95.9 Hypotension, unspecified (principal); I10 Essential (primary) hypertension; E78.5 Hyperlipidemia, unspecified; K21.9 Gastro-esophageal reflux disease without esophagitis; I25.2 Old myocardial infarction; Z87.891 Personal history of nicotine dependence; Z79.82 Long term (current) use of aspirin; Z79.899 Other long term (current) drug therapy
CPT/HCPCS: 99284

== ENCOUNTER 2021-08-27 08:40 | Day surgery (SDC) | payer MEDICARE ==
[2021-08-27 08:52] VITALS: RESP 16; TEMP 97.3
[2021-08-27 09:18] LABS: Mean Platelet Volume 7.9
[2021-08-27 09:19] LABS: Platelet Count 98 k/uL (150-450)
[2021-08-27 09:22] LABS: INR 1.1 (<1.2); Prothrombin Time 11.7 sec (9.0-12.0)
[2021-08-27] MEDS: ALBUMIN HUMAN 25% 50 ML in EMPTY BAG 1 BAG IVPB SCH ×4 (10:07→10:52)
[2021-08-27 11:15] VITALS: BP 97/57
[2021-08-27 11:21] VITALS: PULSE 64
--- NOTE | 2021-08-27 12:14 | US ---
EXAMINATION TYPE: US paracentesis abd w/image DATE OF EXAM: 08/27/2021 COMPARISON: NONE HISTORY: Ascites. PROCEDURE: Maximal barrier technique was utilized. The skin overlying a suitable pocket of fluid was localized with ultrasound and the overlying skin was prepped and draped. Ultrasound was utilized with sterile technique. Lidocaine was used for local anesthesia and a skin farheen made with a scalpel. Catheter was advanced under direct ultrasound guidance into a suitable pocket of fluid and approximately 8.7 liter s of serous fluid were removed. Catheter was withdrawn and hemostasis achieved. There is no immedia te complication; the patient is discharged in stable condition. IMPRESSION: STATUS POST ULTRASOUND GUIDED PARACENTESIS FOR PALLIATION OF ASCITES. THIS PROCEDURE WA S PERFORMED BY THE UNDERSIGNED.
== END 2021-08-27 11:40 | disposition home or self-care (01) ==
LOC: RADPROMAIN 08:40
PROVIDERS: ATTEND Family Medicine
DX: R18.8 Other ascites (principal); I10 Essential (primary) hypertension; E78.5 Hyperlipidemia, unspecified; I25.2 Old myocardial infarction; Z86.718 Personal history of other venous thrombosis and embolism
CPT/HCPCS: 49083; 82565; 85049; 85610; 36415; P9047

== ENCOUNTER → 2021-09-25 | Day surgery (SDC) | payer MEDICARE ==
[~2021-09-25] MED LIST changes: -LACTATED RINGERS 1,000 ML IV SCH; +LIDOCAINE 1% INJ 10MG/ML (5 ML VIAL-PF) SQ ONE
[2021-09-25 13:35] LABS: Mean Platelet Volume 8.3
[2021-09-25 13:36] LABS: Platelet Count 99 k/uL (150-450)
[2021-09-25 13:43] LABS: INR 1.1 (<1.2); Prothrombin Time 11.6 sec (9.0-12.0)
[2021-09-25 14:14] VITALS: RESP 16; TEMP 97.6
[2021-09-25] MEDS: ALBUMIN HUMAN 25% 50 ML in EMPTY BAG 1 BAG IVPB SCH ×4 (14:28→15:26)
[2021-09-25 16:09] VITALS: BP 111/65; PULSE 78
--- NOTE | 2021-09-26 09:57 | US ---
EXAMINATION TYPE: US paracentesis abd w/image DATE OF EXAM: 09/25/2021 COMPARISON: NONE HISTORY: Ascites. PROCEDURE: Maximal barrier technique was utilized. The skin overlying a suitable pocket of fluid was localized with ultrasound and the overlying skin was prepped and draped. Ultrasound was utilized with sterile technique. Lidocaine was used for local anesthesia and a skin farheen made with a scalpel. Catheter was advanced under direct ultrasound guidance into a suitable pocket of fluid and approximately 7.8 liter s of serous fluid were removed. Catheter was withdrawn and hemostasis achieved. There is no immedia te complication; the patient is discharged in stable condition. IMPRESSION: STATUS POST ULTRASOUND GUIDED PARACENTESIS FOR PALLIATION OF ASCITES. THIS PROCEDURE WA S PERFORMED BY THE UNDERSIGNED.
== END ==
LOC: RADPROMAIN 12:44
PROVIDERS: ATTEND Family Medicine
DX: K70.31 Alcoholic cirrhosis of liver with ascites (principal)
CPT/HCPCS: 82565; 85049; 85610; 36415; 49083; J2001; P9047

== ENCOUNTER → 2021-10-01 | Outpatient (CLI) | payer MEDICARE ==
[2021-10-01 18:57] LABS: African American GFR (CKD) 60.9 (60.0-200.0); Albumin 3.6 g/dL (3.8-4.9); Albumin/Globulin Ratio 1.11 (1.60-3.17); Anion Gap 8.4 mmol/L (10.00-18.00); BUN/Creat Ratio 33.43 Ratio (12.00-20.00); Blood Urea Nitrogen 44.8 mg/dL (9.0-27.0); Calcium 9.2 mg/dL (8.7-10.3); Carbon Dioxide 22.7 mmol/L (20.0-27.5); Globulin 3.3 g/dL (1.6-3.3); Non-African American GFR(CKD) 52.6 (60.0-200.0); Total Bilirubin 0.6 mg/dL (0.30-1.20); Total Protein 6.9 g/dL (6.2-8.2)
[2021-10-01 19:12] LABS: HCT 38.2 % (39.6-50.0); HGB 12.4 g/dL (13.0-17.0); MCH 29.1 pg (27.0-32.0); MCHC 32.5 g/dL (32.0-37.0); MCV 89.7 fL (80.0-97.0); Mean Platelet Volume 10.9 fL (9.5-12.2); NRBC Per 100 WBC 0 /100 WBCS (0.0-0.0); Platelet Count 98 X 10*3/uL (140-440); RBC 4.26 X 10*6/uL (4.40-5.60); RDW 16.4 % (11.5-14.5); WBC 6.12 X 10*3/uL (4.50-10.00)
== END | disposition home or self-care (01) ==
LOC: LABWHC1 12:36
PROVIDERS: ATTEND Nurse Practitioner Family
DX: K70.30 Alcoholic cirrhosis of liver without ascites (principal); R79.89 Other specified abnormal findings of blood chemistry
CPT/HCPCS: 36415; 80053; 85027

== ENCOUNTER 2021-10-09 13:00 | Day surgery (SDC) | payer MEDICARE ==
[2021-10-09 13:49] LABS: Prothrombin Time 11.1 sec (9.0-12.0)
[2021-10-09 14:04] LABS: Platelet Count 103 k/uL (150-450)
[2021-10-09] MEDS: ALBUMIN HUMAN 25% 50 ML in EMPTY BAG 1 BAG IVPB SCH ×4 (14:35→15:26)
[2021-10-09 14:42] VITALS: RESP 18; TEMP 98.1
[2021-10-09] MEDS ORDERED: LIDOCAINE 1% INJ 10MG/ML (5 ML VIAL-PF) SQ ONE (14:50)
[2021-10-09 15:51] VITALS: BP 103/68; PULSE 77
--- NOTE | 2021-10-10 09:42 | US ---
Ultrasound-guided paracentesis. DATE OF EXAM: 10/09/2021 CLINICAL HISTORY: Ascites The procedure was discussed with the patient. The risks, complications, benefits, and alternatives we re discussed and any questions were answered. Informed consent was obtained. The patient was placed s upine on the ultrasound table and prepped and draped in the usual sterile fashion. All elements of maximal barrier technique were utilized. Under ultrasound guidance, access into the right lower quadrant was obtained, via the paracentesis catheter system and direct ultrasound guidanc e. Approximately 1.1 liters of straw-colored fluid was removed. The patient was stable throughout the pr ocedure and remained stable upon discharge from Department of Radiology. IMPRESSION: Successful paracentesis under ultrasound guidance.
== END 2021-10-09 16:01 | disposition home or self-care (01) ==
LOC: RADPROMAIN 13:00
PROVIDERS: ATTEND Family Medicine
DX: K70.31 Alcoholic cirrhosis of liver with ascites (principal)
CPT/HCPCS: 82565; 85049; 85610; 36415; 49083; J2001; P9047

== ENCOUNTER 2021-10-23 13:24 | Day surgery (SDC) | payer MEDICARE ==
[2021-10-23 13:57] LABS: Mean Platelet Volume 7.8; Platelet Count 106 k/uL (150-450)
[2021-10-23 14:08] LABS: INR 1.1 (<1.2); Prothrombin Time 11.5 sec (9.0-12.0)
[2021-10-23] MEDS: ALBUMIN HUMAN 25% 50 ML in EMPTY BAG 1 BAG IVPB SCH ×4 (14:31→15:27)
[2021-10-23 15:05] VITALS: RESP 20; TEMP 97.9
[2021-10-23 15:32] VITALS: BP 106/64; PULSE 66
--- NOTE | 2021-10-23 16:16 | US ---
EXAMINATION TYPE: US paracentesis abd w/image DATE OF EXAM: 10/23/2021 COMPARISON: NONE HISTORY: Ascites. PROCEDURE: Maximal barrier technique was utilized. The skin overlying a suitable pocket of fluid was localized with ultrasound and the overlying skin was prepped and draped. Ultrasound was utilized with sterile technique. Lidocaine was used for local anesthesia and a skin farheen made with a scalpel. Catheter was advanced under direct ultrasound guidance into a suitable pocket of fluid and approximately 8.6 liter s of serous fluid were removed. Catheter was withdrawn and hemostasis achieved. There is no immedia te complication; the patient is discharged in stable condition. IMPRESSION: STATUS POST ULTRASOUND GUIDED PARACENTESIS FOR PALLIATION OF ASCITES. THIS PROCEDURE WA S PERFORMED BY THE UNDERSIGNED.
== END 2021-10-23 15:50 | disposition home or self-care (01) ==
LOC: RADPROMAIN 13:24
PROVIDERS: ATTEND Family Medicine
DX: R18.8 Other ascites (principal)
CPT/HCPCS: 49083; 82565; 85049; 85610; 36415; P9047

== ENCOUNTER 2021-11-06 13:08 | Day surgery (SDC) | payer MEDICARE ==
[2021-11-06 13:37] LABS: Mean Platelet Volume 8.2; Platelet Count 115 k/uL (150-450)
[2021-11-06 13:44] VITALS: TEMP 98
[2021-11-06 13:52] LABS: Prothrombin Time 11.3 sec (9.0-12.0)
[2021-11-06] MEDS: ALBUMIN HUMAN 25% 50 ML in EMPTY BAG 1 BAG IVPB SCH ×4 (14:21→15:28)
[2021-11-06 14:47] VITALS: RESP 20
[2021-11-06 15:45] VITALS: BP 99/53; PULSE 69
--- NOTE | 2021-11-07 15:51 | US ---
Ultrasound-guided paracentesis. DATE OF EXAM: 11/06/2021 CLINICAL HISTORY: Ascites The procedure was discussed with the patient. The risks, complications, benefits, and alternatives we re discussed and any questions were answered. Informed consent was obtained. The patient was placed s upine on the ultrasound table and prepped and draped in the usual sterile fashion. All elements of maximal barrier technique were utilized. Under ultrasound guidance, access into the right lower quadrant was obtained, via the paracentesis catheter system and direct ultrasound guidanc e. Approximately 8 liters of straw-colored fluid was removed. The patient was stable throughout the proc edure and remained stable upon discharge from Department of Radiology. IMPRESSION: Successful paracentesis under ultrasound guidance.
== END 2021-11-06 15:40 | disposition home or self-care (01) ==
LOC: RADPROMAIN 13:08
PROVIDERS: ATTEND Family Medicine
DX: K70.31 Alcoholic cirrhosis of liver with ascites (principal)
CPT/HCPCS: 82565; 85049; 85610; 36415; 49083; P9047

== ENCOUNTER 2021-11-20 12:58 | Day surgery (SDC) | payer MEDICARE ==
[2021-11-20 13:29] VITALS: TEMP 36.4
[2021-11-20 13:35] LABS: Mean Platelet Volume 7.5; Platelet Count 139 k/uL (150-450)
[2021-11-20 13:45] LABS: Prothrombin Time 11.3 sec (9.0-12.0)
[2021-11-20] MEDS: ALBUMIN HUMAN 25% 50 ML in EMPTY BAG 1 BAG IVPB SCH ×4 (13:53→15:39)
[2021-11-20 15:52] VITALS: RESP 18
[2021-11-20 16:14] VITALS: BP 107/58; PULSE 64
--- NOTE | 2021-11-21 08:16 | US ---
Ultrasound-guided paracentesis. DATE OF EXAM: 11/20/2021 CLINICAL HISTORY: Ascites The procedure was discussed with the patient. The risks, complications, benefits, and alternatives we re discussed and any questions were answered. Informed consent was obtained. The patient was placed s upine on the ultrasound table and prepped and draped in the usual sterile fashion. All elements of maximal barrier technique were utilized. Under ultrasound guidance, access into the right lower quadrant was obtained, via the paracentesis catheter system and direct ultrasound guidanc e. Approximately 8.8 liters of straw-colored fluid was removed. The patient was stable throughout the pr ocedure and remained stable upon discharge from Department of Radiology. IMPRESSION: Successful paracentesis under ultrasound guidance.
== END 2021-11-20 16:10 | disposition home or self-care (01) ==
LOC: RADPROMAIN 12:58
PROVIDERS: ATTEND Family Medicine
DX: K70.31 Alcoholic cirrhosis of liver with ascites (principal)
CPT/HCPCS: 82565; 85049; 85610; 36415; 49083; P9047

== ENCOUNTER 2021-12-04 12:56 | Day surgery (SDC) | payer MEDICARE ==
[2021-12-04 13:24] VITALS: TEMP 97.8
[2021-12-04 13:49] LABS: INR 1.1 (<1.2); Mean Platelet Volume 8.1; Platelet Count 106 k/uL (150-450); Prothrombin Time 11.7 sec (9.0-12.0)
[2021-12-04] MEDS: ALBUMIN HUMAN 25% 50 ML in EMPTY BAG 1 BAG IVPB SCH ×4 (14:22→15:15)
--- NOTE | 2021-12-04 15:49 | US ---
EXAMINATION TYPE: US paracentesis abd w/image DATE OF EXAM: 12/04/2021 COMPARISON: NONE HISTORY: Ascites. PROCEDURE: Maximal barrier technique was utilized. The skin overlying a suitable pocket of fluid was localized with ultrasound and the overlying skin was prepped and draped. Ultrasound was utilized with sterile technique. Lidocaine was used for local anesthesia and a skin farheen made with a scalpel. Catheter was advanced under direct ultrasound guidance into a suitable pocket of fluid and approximately 7 liters of ascites fluid were removed. Catheter was withdrawn and hemostasis achieved. There is no immediat e complication; the patient is discharged in stable condition. IMPRESSION: STATUS POST ULTRASOUND GUIDED PARACENTESIS FOR PALLIATION OF ASCITES. THIS PROCEDURE WA S PERFORMED BY THE UNDERSIGNED.
[2021-12-04 16:04] VITALS: BP 103/55; PULSE 68; RESP 18
== END 2021-12-04 16:05 | disposition home or self-care (01) ==
LOC: RADPROMAIN 12:56
PROVIDERS: ATTEND Family Medicine
DX: K70.31 Alcoholic cirrhosis of liver with ascites (principal)
CPT/HCPCS: 82565; 85049; 85610; 36415; 49083; P9047

== ENCOUNTER 2021-12-10 08:06 | Day surgery (SDC) | payer MEDICARE ==
[2021-12-06 14:46] VITALS: BMI 23.0
[~2021-12-10 08:06] MED LIST changes: +LACTATED RINGERS 1,000 ML IV SCH; +LIDOCAINE 1% (10MG/ML) FOR IV START INTRADERMA PRN; -LIDOCAINE 1% INJ 10MG/ML (5 ML VIAL-PF) SQ ONE
[2021-12-10 08:34] VITALS: RESP 16; TEMP 98
[2021-12-10] MEDS ORDERED: LIDOCAINE 2% INJ 20 MG/ML (2 ML VIAL) ONE (09:29)
[2021-12-10] MEDS ORDERED: PROPOFOL 10 MG/ML 20 ML VIAL IV ONE (09:29)
--- NOTE | 2021-12-10 09:49 | P.PCN ---
Date of Procedure: 12/10/21 Procedure(s) Performed: BRIEF HISTORY: Patient is a 71-year-old, pleasant, white male with history of alcoholic cirrhosis of the liver and esophageal varices is scheduled for an upper endoscopy for esophageal variceal ligation.. last EGD with variceal ligation was performed in April 2021 PROCEDURE PERFORMED: Esophagogastroduodenoscopywith variceal ligation. PREOPERATIVE DIAGNOSIS: follow-up esophageal varices. IV sedation per anesthesia. PROCEDURE: After informed consent was obtained, the patient was brought into the endoscopy unit. IV sedation was administered by Anesthesia under continuous monitoring. Initially the Olympus GIF-140 video endoscope was inserted into the mouth. Esophagus intubated without any difficulty. It was gradually advanced into the stomach and duodenum and carefully examined. The bulb and the second part of the duodenum appeared normal. The scope at this time was withdrawn to the stomach, adequately insufflated with air, and upon careful examination, mucosa of the antrum, body, cardia and the fundus had changes consistent with moderate to severe portal hypertensive gastropathy. The scope was then withdrawn into the esophagus. The GE junction was located at 39 cm from the incisors.There were small esophageal varices lar mainly in the mid and distal esophagus esophageal varices seen Therest of the esophagus appeared normal. at this time the scope was removed and esophageal variceal ligation equipment was introduced onto the tip of the scope and esophagus reintubated. Using suction total of 5 bands were deployed in the distal esophageal varices. Patient tolerated the procedure well. IMPRESSION: 1. Small esophageal varices in the mid and distal esophagus status post variceal ligation as described above. 2. Moderate to severe portal hypertensive gastropathy. RECOMMENDATIONS: The findings of this examination were discussed with the patient as well as his family. He was advised to continue with his current medications. Repeat Upper Endoscopy in 6 Months..
[2021-12-10 10:07] VITALS: BP 104/61; PULSE 61
== END 2021-12-10 10:27 | disposition home or self-care (01) ==
LOC: ORWHC2ENDO 08:06
PROVIDERS: ATTEND Internal Medicine Gastroenterology
DX: I85.00 Esophageal varices without bleeding (principal); K76.6 Portal hypertension; K31.89 Other diseases of stomach and duodenum; K70.30 Alcoholic cirrhosis of liver without ascites; I25.10 Atherosclerotic heart disease of native coronary artery without angina pectoris; I10 Essential (primary) hypertension; E78.5 Hyperlipidemia, unspecified; I25.2 Old myocardial infarction; K21.9 Gastro-esophageal reflux disease without esophagitis; Z79.82 Long term (current) use of aspirin; Z79.899 Other long term (current) drug therapy; Z87.891 Personal history of nicotine dependence; Z80.0 Family history of malignant neoplasm of digestive organs
CPT/HCPCS: 43244; J2704; J2001

== ENCOUNTER 2021-12-18 12:44 | Day surgery (SDC) | payer MEDICARE ==
[2021-12-18 13:45] LABS: Mean Platelet Volume 7.5; Platelet Count 143 k/uL (150-450)
[2021-12-18 13:46] VITALS: RESP 18; TEMP 98.2
[2021-12-18 14:17] LABS: Prothrombin Time 11.2 sec (9.0-12.0)
[2021-12-18] MEDS: ALBUMIN HUMAN 25% 50 ML in EMPTY BAG 1 BAG IVPB SCH ×4 (14:41→16:20)
[2021-12-18 16:23] VITALS: BP 105/63; PULSE 71
--- NOTE | 2021-12-19 07:49 | US ---
Ultrasound-guided paracentesis. DATE OF EXAM: 12/18/2021 CLINICAL HISTORY: Ascites The procedure was discussed with the patient. The risks, complications, benefits, and alternatives we re discussed and any questions were answered. Informed consent was obtained. The patient was placed s upine on the ultrasound table and prepped and draped in the usual sterile fashion. All elements of maximal barrier technique were utilized. Under ultrasound guidance, access into the right lower quadrant was obtained, via the paracentesis catheter system and direct ultrasound guidanc e. Approximately 7 liters of straw-colored fluid was removed. The patient was stable throughout the proc edure and remained stable upon discharge from Department of Radiology. IMPRESSION: Successful paracentesis under ultrasound guidance.
== END 2021-12-18 15:51 | disposition home or self-care (01) ==
LOC: RADPROMAIN 12:44
PROVIDERS: ATTEND Family Medicine
DX: K70.31 Alcoholic cirrhosis of liver with ascites (principal)
CPT/HCPCS: 82565; 85049; 85610; 36415; 49083; P9047

== ENCOUNTER 2022-01-01 12:59 | Day surgery (SDC) | payer MEDICARE ==
[2022-01-01 13:27] VITALS: RESP 16; TEMP 97.4
[2022-01-01 13:41] LABS: Basophils # (A) 0.1 k/uL (0-0.2); Basophils % (A) 1 %; Eosinophils # (A) 0.1 k/uL (0-0.7); Eosinophils % (A) 2 %; HCT 40.5 % (39.0-53.0); Lymphocytes # (A) 0.4 k/uL (1.0-4.8); Lymphocytes % (A) 7 %; MCH 28.8 pg (25.0-35.0); MCHC 32.1 g/dL (31.0-37.0); MCV 89.7 fL (80.0-100.0); Mean Platelet Volume 7.7; Monocytes # (A) 0.7 k/uL (0-1.0); Monocytes % (A) 11 %; Neutrophils # (A) 4.8 k/uL (1.3-7.7); Neutrophils % (A) 77 %; Platelet Count 135 k/uL (150-450); RBC 4.52 m/uL (4.30-5.90); RDW 14.8 % (11.5-15.5); WBC 6.2 k/uL (3.8-10.6)
[2022-01-01 13:47] LABS: INR 1.1 (<1.2); Prothrombin Time 11.8 sec (9.0-12.0)
[2022-01-01 14:02] LABS: ALT 31 U/L (4-49); AST 47 U/L (17-59); African American GFR (CKD) 51 (>60 ml/min/1.73 sqM); Albumin 3.7 g/dL (3.5-5.0); Alkaline Phosphatase 80 U/L (38-126); Anion Gap 5 mmol/L; Blood Urea Nitrogen 59 mg/dL (9-20); Calcium 9.2 mg/dL (8.4-10.2); Carbon Dioxide 26 mmol/L (22-30); Chloride 99 mmol/L (98-107); Glucose 103 mg/dL (74-99); Non-African American GFR(CKD) 44 (>60 ml/min/1.73 sqM); Potassium 4.6 mmol/L (3.5-5.1); Sodium 130 mmol/L (137-145); Total Bilirubin 0.8 mg/dL (0.2-1.3); Total Protein 7.1 g/dL (6.3-8.2)
[2022-01-01] MEDS: ALBUMIN HUMAN 25% 50 ML in EMPTY BAG 1 BAG IVPB SCH ×4 (14:34→15:23)
[2022-01-01 15:47] VITALS: BP 105/59; PULSE 56
--- NOTE | 2022-01-01 17:49 | US ---
EXAMINATION TYPE: US paracentesis abd w/image DATE OF EXAM: 01/01/2022 COMPARISON: NONE HISTORY: Ascites. PROCEDURE: Maximal barrier technique was utilized. The skin overlying a suitable pocket of fluid was localized with ultrasound and the overlying skin was prepped and draped. Ultrasound was utilized with sterile technique. Lidocaine was used for local anesthesia and a skin farheen made with a scalpel. Catheter was advanced under direct ultrasound guidance into a suitable pocket of fluid and approximately 6.9 liter s of ascites fluid were removed. Catheter was withdrawn and hemostasis achieved. There is no immedi ate complication; the patient is discharged in stable condition. IMPRESSION: STATUS POST ULTRASOUND GUIDED PARACENTESIS FOR PALLIATION OF ASCITES. THIS PROCEDURE WA S PERFORMED BY THE UNDERSIGNED.
== END 2022-01-01 16:05 | disposition home or self-care (01) ==
LOC: RADPROMAIN 12:59
PROVIDERS: ATTEND Family Medicine
DX: K70.31 Alcoholic cirrhosis of liver with ascites (principal); Z79.82 Long term (current) use of aspirin; Z79.899 Other long term (current) drug therapy; Z79.51 Long term (current) use of inhaled steroids; Z87.891 Personal history of nicotine dependence; Z80.0 Family history of malignant neoplasm of digestive organs
CPT/HCPCS: 80053; 84443; 85025; 85610; 36415; 49083; P9047

== ENCOUNTER 2022-01-29 12:53 | Day surgery (SDC) | payer MEDICARE ==
[2022-01-29 13:19] LABS: Mean Platelet Volume 8.2
[2022-01-29 13:25] LABS: INR 1.1 (<1.2); Prothrombin Time 11.8 sec (9.0-12.0)
[2022-01-29 13:35] LABS: Platelet Count 93 k/uL (150-450)
[2022-01-29 13:36] VITALS: RESP 14; TEMP 97.4
[2022-01-29] MEDS: ALBUMIN HUMAN 25% 50 ML in EMPTY BAG 1 BAG IVPB SCH ×4 (14:13→15:03)
[2022-01-29 15:34] VITALS: BP 98/56; PULSE 58
--- NOTE | 2022-01-29 16:04 | US ---
Ultrasound-guided paracentesis. DATE OF EXAM: 01/29/2022 CLINICAL HISTORY: Ascites The procedure was discussed with the patient. The risks, complications, benefits, and alternatives we re discussed and any questions were answered. Informed consent was obtained. The patient was placed s upine on the ultrasound table and prepped and draped in the usual sterile fashion. All elements of maximal barrier technique were utilized. Under ultrasound guidance, access into the right lower quadrant was obtained, via the paracentesis catheter system and direct ultrasound guidanc e. Approximately 5.9 liters of straw-colored fluid was removed. The patient was stable throughout the pr ocedure and remained stable upon discharge from Department of Radiology. IMPRESSION: Successful paracentesis under ultrasound guidance.
== END 2022-01-29 15:30 | disposition home or self-care (01) ==
LOC: RADPROMAIN 12:53
PROVIDERS: ATTEND Family Medicine
DX: K70.31 Alcoholic cirrhosis of liver with ascites (principal); Z79.82 Long term (current) use of aspirin; Z79.899 Other long term (current) drug therapy; Z79.51 Long term (current) use of inhaled steroids; Z87.891 Personal history of nicotine dependence; Z80.0 Family history of malignant neoplasm of digestive organs
CPT/HCPCS: 82565; 85049; 85610; 36415; 49083; P9047

== ENCOUNTER 2022-02-12 12:59 | Day surgery (SDC) | payer MEDICARE ==
[2022-02-12 13:27] VITALS: TEMP 97.8
[2022-02-12 13:29] LABS: Platelet Count 89 k/uL (150-450)
[2022-02-12 13:38] LABS: INR 1.1 (<1.2); Prothrombin Time 11.5 sec (9.0-12.0)
[2022-02-12] MEDS: ALBUMIN HUMAN 25% 50 ML in EMPTY BAG 1 BAG IVPB SCH ×4 (14:08→15:30)
[2022-02-12 15:53] VITALS: BP 95/56; PULSE 61; RESP 16
--- NOTE | 2022-02-13 09:16 | US ---
Ultrasound-guided paracentesis. DATE OF EXAM: 02/12/2022 CLINICAL HISTORY: Ascites The procedure was discussed with the patient. The risks, complications, benefits, and alternatives we re discussed and any questions were answered. Informed consent was obtained. The patient was placed s upine on the ultrasound table and prepped and draped in the usual sterile fashion. All elements of maximal barrier technique were utilized. Under ultrasound guidance, access into the right lower quadrant was obtained, via the paracentesis catheter system and direct ultrasound guidanc e. Approximately 7.4 liters of straw-colored fluid was removed. The patient was stable throughout the pr ocedure and remained stable upon discharge from Department of Radiology. IMPRESSION: Successful paracentesis under ultrasound guidance.
== END 2022-02-12 15:45 | disposition home or self-care (01) ==
LOC: RADPROMAIN 12:59
PROVIDERS: ATTEND Family Medicine
DX: R18.8 Other ascites (principal)
CPT/HCPCS: 82565; 85049; 85610; 36415; 49083; P9047

== ENCOUNTER → 2022-02-24 | Outpatient (CLI) | payer MEDICARE ==
[2022-02-24 14:56] LABS: African American GFR (CKD) 57.8 (60.0-200.0); Albumin 3.6 g/dL (3.8-4.9); Albumin/Globulin Ratio 1.13 (1.60-3.17); Anion Gap 9.4 mmol/L (10.00-18.00); BUN/Creat Ratio 35.79 Ratio (12.00-20.00); Blood Urea Nitrogen 50.1 mg/dL (9.0-27.0); Calcium 9.2 mg/dL (8.7-10.3); Carbon Dioxide 22.6 mmol/L (20.0-27.5); Globulin 3.2 g/dL (1.6-3.3); Non-African American GFR(CKD) 49.8 (60.0-200.0); Potassium 4.8 mmol/L (3.5-5.5); Total Bilirubin 0.7 mg/dL (0.30-1.20); Total Protein 6.8 g/dL (6.2-8.2)
[2022-02-24 15:17] LABS: HCT 36.7 % (39.6-50.0); HGB 11.7 g/dL (13.0-17.0); MCH 28.6 pg (27.0-32.0); MCHC 31.9 g/dL (32.0-37.0); MCV 89.7 fL (80.0-97.0); Mean Platelet Volume 10.4 fL (9.5-12.2); NRBC Per 100 WBC 0 /100 WBCS (0.0-0.0); Platelet Count 82 X 10*3/uL (140-440); RBC 4.09 X 10*6/uL (4.40-5.60); RDW 16.3 % (11.5-14.5); WBC 5.66 X 10*3/uL (4.50-10.00)
--- NOTE | 2022-02-24 16:06 | US ---
EXAMINATION TYPE: US liver DATE OF EXAM: 02/24/2022 COMPARISON: NONE CLINICAL HISTORY: 71-year-old male K70.30 ALCOHOLIC CIRRHOSIS OF LIVER WITHOUT ASCITES. TECHNIQUE: Multiple sonographic images of the right upper quadrant are obtained. FINDINGS: EXAM MEASUREMENTS: Liver Length: 15.7 cm Gallbladder Wall: 0.37 cm CBD: 0.40 cm Right Kidney: 10.3 x 4.1 x 4.9 cm Pancreas: Obscured by bowel gas Liver: Heterogeneous and lobulated without discrete mass visualized. Hepatopedal flow present withi n main portal vein. Gallbladder: Echogenic foci seen within the neck region measuring 9 x 4 x 3 mm. Wall is thickened. No hydropic change. Evidence for sonographic Cristobal's sign: No CBD: wnl Right Kidney: wnl Moderate abdominal ascites is present. IMPRESSION: 1. Cirrhotic morphology of the liver. No sonographic evidence for hepatoma. Limited by the degree of moderate ascites. 2. Appropriate hepatopedal flow within the main portal vein. 3. Possible 9 mm gallstone. Gallbladder wall thickening is nonspecific and favored to relate to under lying cirrhosis. 4. No biliary ductal dilatation.
== END | disposition home or self-care (01) ==
LOC: RADUSWWP 10:35
PROVIDERS: ATTEND Internal Medicine Gastroenterology
DX: K70.31 Alcoholic cirrhosis of liver with ascites (principal); R93.5 Abnormal findings on diagnostic imaging of other abdominal regions, including retroperitoneum
CPT/HCPCS: 76705; 80053; 82105; 85027

== ENCOUNTER 2022-02-26 12:56 | Day surgery (SDC) | payer MEDICARE ==
[2022-02-26 13:27] LABS: Mean Platelet Volume 8.7
[2022-02-26 13:30] LABS: Platelet Count 79 k/uL (150-450)
[2022-02-26 13:32] LABS: INR 1.1 (<1.2); Prothrombin Time 11.9 sec (9.0-12.0)
[2022-02-26 13:50] VITALS: RESP 16; TEMP 98.1
[2022-02-26] MEDS: ALBUMIN HUMAN 25% 50 ML in EMPTY BAG 1 BAG IVPB SCH ×4 (13:56→15:17)
[2022-02-26 15:22] VITALS: BP 109/63; PULSE 66
--- NOTE | 2022-02-26 16:04 | US ---
Ultrasound-guided paracentesis. DATE OF EXAM: 02/26/2022 CLINICAL HISTORY: Ascites The procedure was discussed with the patient. The risks, complications, benefits, and alternatives we re discussed and any questions were answered. Informed consent was obtained. The patient was placed s upine on the ultrasound table and prepped and draped in the usual sterile fashion. All elements of maximal barrier technique were utilized. Under ultrasound guidance, access into the right lower quadrant was obtained, via the paracentesis catheter system and direct ultrasound guidanc e. Approximately 7.2 liters of straw-colored fluid was removed. The patient was stable throughout the pr ocedure and remained stable upon discharge from Department of Radiology. IMPRESSION: Successful paracentesis under ultrasound guidance.
== END 2022-02-26 15:10 | disposition home or self-care (01) ==
LOC: RADPROMAIN 12:56
PROVIDERS: ATTEND Family Medicine
DX: K70.31 Alcoholic cirrhosis of liver with ascites (principal)
CPT/HCPCS: 49083; 82565; 85049; 85610; 36415; P9047

== ENCOUNTER 2022-03-12 12:52 | Day surgery (SDC) | payer MEDICARE ==
[2022-03-12 13:13] VITALS: RESP 16; TEMP 97.7
[2022-03-12 13:21] LABS: Mean Platelet Volume 9.2
[2022-03-12 13:22] LABS: Platelet Count 89 k/uL (150-450)
[2022-03-12 13:29] LABS: INR 1.1 (<1.2)
[2022-03-12] MEDS: ALBUMIN HUMAN 25% 50 ML in EMPTY BAG 1 BAG IVPB SCH ×4 (13:57→14:56)
[2022-03-12 15:12] VITALS: BP 106/66; PULSE 69
--- NOTE | 2022-03-12 16:36 | US ---
EXAMINATION TYPE: US paracentesis abd w/image DATE OF EXAM: 03/12/2022 COMPARISON: NONE HISTORY: Ascites. PROCEDURE: Maximal barrier technique was utilized. The skin overlying a suitable pocket of fluid was localized with ultrasound and the overlying skin was prepped and draped. Ultrasound was utilized with sterile technique. Lidocaine was used for local anesthesia and a skin farheen made with a scalpel. Catheter was advanced under direct ultrasound guidance into a suitable pocket of fluid and approximately 7.1 liter s of ascites fluid were removed. Catheter was withdrawn and hemostasis achieved. There is no immedi ate complication; the patient is discharged in stable condition. IMPRESSION: STATUS POST ULTRASOUND GUIDED PARACENTESIS FOR PALLIATION OF ASCITES. THIS PROCEDURE WA S PERFORMED BY THE UNDERSIGNED.
== END 2022-03-12 13:20 | disposition home or self-care (01) ==
LOC: RADPROMAIN 12:52
PROVIDERS: ATTEND Family Medicine
DX: K70.31 Alcoholic cirrhosis of liver with ascites (principal)
CPT/HCPCS: 82565; 85049; 85610; 36415; 49083; P9047

== ENCOUNTER 2022-03-26 12:48 | Day surgery (SDC) | payer MEDICARE ==
[2022-03-26 13:34] LABS: Mean Platelet Volume 8.5
[2022-03-26 13:35] LABS: Platelet Count 89 k/uL (150-450)
[2022-03-26 13:39] LABS: INR 1.1 (<1.2); Prothrombin Time 11.7 sec (9.0-12.0)
[2022-03-26 13:46] VITALS: RESP 16
[2022-03-26] MEDS: ALBUMIN HUMAN 25% 50 ML in EMPTY BAG 1 BAG IVPB SCH ×4 (14:04→15:12)
[2022-03-26 15:17] VITALS: PULSE 67
[2022-03-26 15:29] VITALS: BP 101/64
--- NOTE | 2022-03-27 09:25 | US ---
EXAMINATION TYPE: US paracentesis abd w/image DATE OF EXAM: 03/26/2022 COMPARISON: NONE HISTORY: Ascites. PROCEDURE: Maximal barrier technique was utilized. The skin overlying a suitable pocket of fluid was localized with ultrasound and the overlying skin was prepped and draped. Ultrasound was utilized with sterile technique. Lidocaine was used for local anesthesia and a skin farheen made with a scalpel. Catheter was advanced under direct ultrasound guidance into a suitable pocket of fluid and approximately 6.8 liter s of ascites fluid were removed. Catheter was withdrawn and hemostasis achieved. There is no immedi ate complication; the patient is discharged in stable condition. IMPRESSION: STATUS POST ULTRASOUND GUIDED PARACENTESIS FOR PALLIATION OF ASCITES. THIS PROCEDURE WA S PERFORMED BY THE UNDERSIGNED.
== END 2022-03-26 15:35 | disposition home or self-care (01) ==
LOC: RADPROMAIN 12:48
PROVIDERS: ATTEND Family Medicine
DX: R18.8 Other ascites (principal)
CPT/HCPCS: 82565; 85049; 85610; 49083; P9047

== ENCOUNTER 2022-04-08 12:24 | Day surgery (SDC) | payer MEDICARE ==
[2022-04-08 12:50] VITALS: RESP 16; TEMP 97.6
[2022-04-08 12:54] LABS: Mean Platelet Volume 8.1
[2022-04-08 12:55] LABS: Platelet Count 95 k/uL (150-450)
[2022-04-08 12:58] LABS: INR 1.1 (<1.2); Prothrombin Time 11.7 sec (9.0-12.0)
[2022-04-08] MEDS: ALBUMIN HUMAN 25% 50 ML in EMPTY BAG 1 BAG IVPB SCH ×3 (13:32→14:02)
[2022-04-08 14:26] VITALS: BP 103/59; PULSE 75
--- NOTE | 2022-04-08 14:49 | US ---
Ultrasound-guided paracentesis. DATE OF EXAM: 04/08/2022 CLINICAL HISTORY: Ascites The procedure was discussed with the patient. The risks, complications, benefits, and alternatives we re discussed and any questions were answered. Informed consent was obtained. The patient was placed s upine on the ultrasound table and prepped and draped in the usual sterile fashion. All elements of maximal barrier technique were utilized. Under ultrasound guidance, access into the right lower quadrant was obtained, via the paracentesis catheter system and direct ultrasound guidanc e. Approximately 5.7 liters of straw-colored fluid was removed. The patient was stable throughout the pr ocedure and remained stable upon discharge from Department of Radiology. IMPRESSION: Successful paracentesis under ultrasound guidance.
== END 2022-04-08 14:50 | disposition home or self-care (01) ==
LOC: RADPROMAIN 12:24
PROVIDERS: ATTEND Family Medicine
DX: R18.8 Other ascites (principal)
CPT/HCPCS: 82565; 85049; 85610; 36415; 49083; P9047

== ENCOUNTER → 2022-04-11 | Outpatient (CLI) | payer MEDICARE ==
--- NOTE | 2022-04-11 13:02 | CT ---
EXAMINATION TYPE: CT abdomen pelvis wo con DATE OF EXAM: 04/11/2022 COMPARISON: INDICATION: Abdominal bilateral inguinal hernia, without obstruction or gangrene, recurrent DLP: 750 mGycm, Automated exposure control for dose reduction was used. CONTRAST: mL of . Study performed without Oral Contrast TECHNIQUE: Axial images were obtained from above the diaphragm to the pubic rami in the axial plane a t 5 mm thick sections. Reconstructed images are reviewed on the computer in the coronal plane. FINDINGS: Limited CT sections are obtained the lung bases. The lung bases are clear. CT ABDOMEN: Ascites is present. Liver: Mildly lobulated and small compatible with cirrhosis of the liver. Spleen: Within normal limits. Pancreas: Normal Adrenal glands: The adrenal glands are normal. Gallbladder: Normal Kidneys: No masses are evident. No hydronephrosis is present. No cysts are present. No renal stone s are evident. Aorta: Vascular calcification is within the aorta. Inferior vena cava: Normal. CT PELVIS: Loops of bowel within the abdomen and pelvis are normal. This study is without oral contrast limi ting bowel evaluation. A few scattered diverticuli without acute diverticulitis may be present. Appendix: Normal as visualized. Urinary bladder: Some mild urinary bladder wall thickening may be present. This is incompletely diste nded limiting evaluation. Genitourinary structures: Prostate is slightly prominent Osseous structures: No suspicious lytic or sclerotic lesions. There is a large fluid collection in the left inguinal region extending to nearly the iliac spine. Sm all amount of fluid is within the right inguinal region. IMPRESSIONS: 1. Prominent ascites. 2. Cirrhosis of the liver. 3. Inguinal hernias containing fluid, larger on the left.
== END | disposition home or self-care (01) ==
LOC: RADCTMAIN 08:30
PROVIDERS: ATTEND Family Medicine
DX: K74.60 Unspecified cirrhosis of liver (principal); K40.20 Bilateral inguinal hernia, without obstruction or gangrene, not specified as recurrent; R18.8 Other ascites
CPT/HCPCS: 74176

== ENCOUNTER 2022-04-23 12:45 | Day surgery (SDC) | payer MEDICARE ==
[2022-04-23 13:17] VITALS: TEMP 97.8
[2022-04-23 13:25] LABS: Mean Platelet Volume 8.4
[2022-04-23 13:29] LABS: Platelet Count 91 k/uL (150-450)
[2022-04-23 13:54] LABS: INR 1.1 (<1.2); Prothrombin Time 11.6 sec (9.0-12.0)
[2022-04-23] MEDS: ALBUMIN HUMAN 25% 50 ML in EMPTY BAG 1 BAG IVPB SCH ×4 (14:26→15:22)
[2022-04-23 15:45] VITALS: BP 107/58; PULSE 78; RESP 16
--- NOTE | 2022-04-25 09:04 | US ---
Ultrasound-guided paracentesis. DATE OF EXAM: 04/23/2022 CLINICAL HISTORY: Ascites The procedure was discussed with the patient. The risks, complications, benefits, and alternatives we re discussed and any questions were answered. Informed consent was obtained. The patient was placed s upine on the ultrasound table and prepped and draped in the usual sterile fashion. All elements of maximal barrier technique were utilized. Under ultrasound guidance, access into the right lower quadrant was obtained, via the paracentesis catheter system and direct ultrasound guidanc e. Approximately 6.9 liters of straw-colored fluid was removed. The patient was stable throughout the pr ocedure and remained stable upon discharge from Department of Radiology. IMPRESSION: Successful paracentesis under ultrasound guidance.
== END 2022-04-23 15:35 | disposition home or self-care (01) ==
LOC: RADPROMAIN 12:45
PROVIDERS: ATTEND Family Medicine
DX: R18.8 Other ascites (principal)
CPT/HCPCS: 82565; 85049; 85610; 36415; 49083; P9047

== ENCOUNTER 2022-05-08 12:04 | Day surgery (SDC) | payer MEDICARE ==
[2022-05-08 12:59] VITALS: RESP 18; TEMP 97.9
[2022-05-08 13:09] LABS: Mean Platelet Volume 8.5
[2022-05-08 13:14] LABS: Platelet Count 86 k/uL (150-450)
[2022-05-08 13:26] LABS: INR 1.1 (<1.2); Prothrombin Time 11.4 sec (9.0-12.0)
[2022-05-08] MEDS: ALBUMIN HUMAN 25% 50 ML in EMPTY BAG 1 BAG IVPB SCH ×4 (13:59→15:05)
[2022-05-08 14:58] VITALS: BP 101/54; PULSE 74
--- NOTE | 2022-05-09 09:26 | US ---
Ultrasound-guided paracentesis. DATE OF EXAM: 05/08/2022 CLINICAL HISTORY: Ascites The procedure was discussed with the patient. The risks, complications, benefits, and alternatives we re discussed and any questions were answered. Informed consent was obtained. The patient was placed s upine on the ultrasound table and prepped and draped in the usual sterile fashion. All elements of maximal barrier technique were utilized. Under ultrasound guidance, access into the right lower quadrant was obtained, via the paracentesis catheter system and direct ultrasound guidanc e. Approximately 7.6 liters of straw-colored fluid was removed. The patient was stable throughout the pr ocedure and remained stable upon discharge from Department of Radiology. IMPRESSION: Successful paracentesis under ultrasound guidance.
== END 2022-05-08 14:40 | disposition home or self-care (01) ==
LOC: RADPROMAIN 12:04
PROVIDERS: ATTEND Family Medicine
DX: K70.31 Alcoholic cirrhosis of liver with ascites (principal)
CPT/HCPCS: 82565; 85049; 85610; 36415; 49083; P9047

== ENCOUNTER 2022-05-22 12:17 | Day surgery (SDC) | payer MEDICARE ==
[2022-05-22 12:50] VITALS: TEMP 97.5
[2022-05-22 12:55] LABS: Mean Platelet Volume 8.7
[2022-05-22 12:57] LABS: Platelet Count 80 k/uL (150-450)
[2022-05-22 13:02] LABS: INR 1.1 (<1.2); Prothrombin Time 11.2 sec (9.0-12.0)
[2022-05-22] MEDS: ALBUMIN HUMAN 25% 50 ML in EMPTY BAG 1 BAG IVPB SCH ×3 (13:53→14:28)
[2022-05-22 15:14] VITALS: BP 107/61; PULSE 88; RESP 18
--- NOTE | 2022-05-23 08:18 | US ---
Ultrasound-guided paracentesis. DATE OF EXAM: 05/22/2022 CLINICAL HISTORY: Ascites The procedure was discussed with the patient. The risks, complications, benefits, and alternatives we re discussed and any questions were answered. Informed consent was obtained. The patient was placed s upine on the ultrasound table and prepped and draped in the usual sterile fashion. All elements of maximal barrier technique were utilized. Under ultrasound guidance, access into the right lower quadrant was obtained, via the paracentesis catheter system and direct ultrasound guidanc e. Approximately 6.5 liters of straw-colored fluid was removed. The patient was stable throughout the pr ocedure and remained stable upon discharge from Department of Radiology. IMPRESSION: Successful paracentesis under ultrasound guidance.
== END 2022-05-22 15:05 | disposition home or self-care (01) ==
LOC: RADPROMAIN 12:17
PROVIDERS: ATTEND Family Medicine
DX: R18.8 Other ascites (principal)
CPT/HCPCS: 82565; 85049; 85610; 36415; 49083; P9047

== ENCOUNTER 2022-06-05 12:32 | Day surgery (SDC) | payer MEDICARE ==
[2022-06-05 12:53] VITALS: RESP 16; TEMP 97.7
[2022-06-05 13:17] LABS: Mean Platelet Volume 7.6; Platelet Count 164 k/uL (150-450)
[2022-06-05 13:37] LABS: INR 1.1 (<1.2); Prothrombin Time 11.6 sec (9.0-12.0)
[2022-06-05] MEDS: ALBUMIN HUMAN 25% 50 ML in EMPTY BAG 1 BAG IVPB SCH ×3 (14:01→14:31)
[2022-06-05 15:04] VITALS: BP 102/60; PULSE 98
--- NOTE | 2022-06-05 15:56 | US ---
Ultrasound-guided paracentesis. DATE OF EXAM: 06/05/2022 CLINICAL HISTORY: Ascites The procedure was discussed with the patient. The risks, complications, benefits, and alternatives we re discussed and any questions were answered. Informed consent was obtained. The patient was placed s upine on the ultrasound table and prepped and draped in the usual sterile fashion. All elements of maximal barrier technique were utilized. Under ultrasound guidance, access into the right lower quadrant was obtained, via the paracentesis catheter system and direct ultrasound guidanc e. Approximately 7.5 liters of straw-colored fluid was removed. The patient was stable throughout the pr ocedure and remained stable upon discharge from Department of Radiology. IMPRESSION: Successful paracentesis under ultrasound guidance.
== END 2022-06-05 15:15 | disposition home or self-care (01) ==
LOC: RADPROMAIN 12:32
PROVIDERS: ATTEND Family Medicine
DX: R18.8 Other ascites (principal)
CPT/HCPCS: 82565; 85049; 85610; 49083; P9047

== ENCOUNTER → 2022-06-06 | Outpatient (CLI) | payer MEDICARE ==
--- NOTE | 2022-06-06 10:37 | US ---
EXAMINATION TYPE: US liver DATE OF EXAM: 06/06/2022 COMPARISON: US & CT CLINICAL HISTORY: K70.30ALCOHOLIC CIRRHOSIS OF LIVER WITHOUT ASCITES. Cirrhosis TECHNIQUE: Multiple sonographic images of the right upper quadrant are obtained. FINDINGS: EXAM MEASUREMENTS: Liver Length: 12.1 cm Gallbladder Wall: 0.4 cm CBD: 0.4 cm Right Kidney: 10.3 x 4.6 x 4.5 cm [employer]MENT[employer] MANAGER NOTES: Pancreas: Obscured by bowel gas Liver: Heterogeneous, small in size, lobulated contour, similar findings to priors Gallbladder: Contracted with probable gallstone within neck, wall thickened, similar findings to lynda ors Evidence for sonographic Cristobal's sign: No CBD: wnl Right Kidney: wnl Moderate amount of ascites present Cirrhotic morphology liver without suspicious focal lesion. No visualization of the pancreas due to o verlying bowel gas. Contracted gallbladder with gallstone within the neck and some wall thickening. N o sonographic positive Cristobal's sign to suggest acute cholecystitis. Common bile duct within normal l imits. The kidneys within normal limits without evidence for hydronephrosis, shadowing calculi, or so lid mass. Moderate volume ascites. IMPRESSION: 1. Hepatic cirrhosis without suspicious focal lesion. 2. Cholelithiasis without evidence for acute cholecystitis. 3. Moderate volume ascites.
== END | disposition home or self-care (01) ==
LOC: RADUSWWP 09:43
PROVIDERS: ATTEND Internal Medicine Gastroenterology
DX: K80.20 Calculus of gallbladder without cholecystitis without obstruction (principal); K70.31 Alcoholic cirrhosis of liver with ascites
CPT/HCPCS: 76705

== ENCOUNTER 2022-06-19 12:07 | Day surgery (SDC) | payer MEDICARE ==
[2022-06-19 12:57] VITALS: RESP 18; TEMP 97.4
[2022-06-19 12:58] LABS: Mean Platelet Volume 7.5; Platelet Count 136 k/uL (150-450)
[2022-06-19 13:04] LABS: INR 1.2 (<1.2); Prothrombin Time 12.3 sec (9.0-12.0)
[2022-06-19] MEDS: ALBUMIN HUMAN 25% 50 ML in EMPTY BAG 1 BAG IVPB SCH ×3 (13:56→14:47)
--- NOTE | 2022-06-19 14:20 | US ---
Ultrasound-guided paracentesis. DATE OF EXAM: 06/19/2022 CLINICAL HISTORY: Ascites The procedure was discussed with the patient. The risks, complications, benefits, and alternatives we re discussed and any questions were answered. Informed consent was obtained. The patient was placed s upine on the ultrasound table and prepped and draped in the usual sterile fashion. All elements of maximal barrier technique were utilized. Under ultrasound guidance, access into the right lower quadrant was obtained, via the paracentesis catheter system and direct ultrasound guidanc e. Approximately 7.5 liters of straw-colored fluid was removed. The patient was stable throughout the pr ocedure and remained stable upon discharge from Department of Radiology. IMPRESSION: Successful paracentesis under ultrasound guidance.
[2022-06-19 15:29] VITALS: BP 110/59; PULSE 84
== END 2022-06-19 15:05 | disposition home or self-care (01) ==
LOC: RADPROMAIN 12:07
PROVIDERS: ATTEND Family Medicine
DX: R18.8 Other ascites (principal)
CPT/HCPCS: 82565; 85049; 85610; 36415; 49083; P9047

== ENCOUNTER 2022-08-14 12:05 | Day surgery (SDC) | payer MEDICARE ==
[2022-08-14 12:40] VITALS: RESP 16; TEMP 98.3
[2022-08-14 12:45] LABS: Mean Platelet Volume 8.2; Platelet Count 113 k/uL (150-450)
[2022-08-14 12:54] LABS: INR 1.1 (<1.2); Prothrombin Time 11.8 sec (9.0-12.0)
[2022-08-14] MEDS: ALBUMIN HUMAN 25% 50 ML in EMPTY BAG 1 BAG IVPB SCH ×3 (13:24→13:54)
[2022-08-14 14:04] VITALS: BP 100/63; PULSE 77
--- NOTE | 2022-08-14 14:43 | US ---
Ultrasound-guided paracentesis. DATE OF EXAM: 08/14/2022 CLINICAL HISTORY: Ascites The procedure was discussed with the patient. The risks, complications, benefits, and alternatives we re discussed and any questions were answered. Informed consent was obtained. The patient was placed s upine on the ultrasound table and prepped and draped in the usual sterile fashion. All elements of maximal barrier technique were utilized. Under ultrasound guidance, access into the right lower quadrant was obtained, via the paracentesis catheter system and direct ultrasound guidanc e. Approximately 4 liters of straw-colored fluid was removed. The patient was stable throughout the proc edure and remained stable upon discharge from Department of Radiology. IMPRESSION: Successful paracentesis under ultrasound guidance.
== END 2022-08-14 14:15 | disposition home or self-care (01) ==
LOC: RADPROMAIN 12:05
PROVIDERS: ATTEND Family Medicine
DX: R18.8 Other ascites (principal)
CPT/HCPCS: 82565; 85049; 85610; 49083; P9047

== ENCOUNTER → 2022-08-20 | Outpatient (CLI) | payer MEDICARE ==
--- NOTE | 2022-08-20 19:30 | CT ---
EXAMINATION TYPE: CT abdomen w con CT DLP: 1678.8 mGycm, Automated exposure control for dose reduction was used. DATE OF EXAM: 08/20/2022 6:53 PM COMPARISON: 04/11/2022 CT the liver MRI 08/18/2020 CLINICAL INDICATION:Male, 72 years old with history of K70.30 ALCOHOLIC CIRRHOSIS LIVER; Alcoholic ci rrhosis liver TECHNIQUE: Axial CT of the abdomen and pelvis. Sagittal and coronal reformats were created on a [employer] workstation. Contrast used:90ML mL of Isovue 300 with IV Contrast, Oral contrast used: with Oral Contrast FINDINGS: LOWER CHEST: Atherosclerosis of the coronary arteries. ABDOMEN LIVER: Nodular shrunken contour to liver. GALLBLADDER AND BILE DUCTS: Calcified gallstone present. PANCREAS: Unremarkable. SPLEEN: Unremarkable. ADRENAL GLANDS: Unremarkable. KIDNEYS AND URETERS: No evidence of hydronephrosis or renal calculus. The ureters are unremarkable. PELVIS BLADDER: Unremarkable REPRODUCTIVE: Unremarkable. ABDOMEN & PELVIS STOMACH AND BOWEL: No evidence of bowel obstruction. PERITONEUM/RETROPERITONEUM: No evidence of pneumoperitoneum. Moderate ascites. VASCULATURE: No evidence of aortic aneurysm. Upper abdominal varices are present in the upper abdomen and along the esophagus. Is sclerosis of the arterial vasculature. MUSCULOSKELETAL: No acute osseous abnormalities LYMPH NODES: No gross evidence for lymphadenopathy. SOFT TISSUE/ABDOMINAL WALL: Partially visualized fluid collection in the low left anterior abdominal wall could represent herniated fluid to the abdominal wall. IMPRESSION: 1. Hepatic cirrhosis with evidence of portal hypertension with ascites and 2. Moderate ascites. 3. Colonic diverticulosis. 4. Partially visualized fluid collection in the low left anterior abdominal wall could represent her niated fluid to the abdominal wall. 5. Cholelithiasis.
== END | disposition home or self-care (01) ==
LOC: RADCTMAIN 17:20
PROVIDERS: ATTEND Internal Medicine Gastroenterology
DX: K70.31 Alcoholic cirrhosis of liver with ascites (principal); K57.30 Diverticulosis of large intestine without perforation or abscess without bleeding; K80.20 Calculus of gallbladder without cholecystitis without obstruction; K76.6 Portal hypertension
CPT/HCPCS: 82565; 84520; 74160; 36415; Q9967

== ENCOUNTER 2022-08-28 12:18 | Day surgery (SDC) | payer MEDICARE ==
[2022-08-28 12:51] VITALS: TEMP 98.1
[2022-08-28 13:04] LABS: Mean Platelet Volume 7.9; Platelet Count 124 k/uL (150-450)
[2022-08-28 13:29] LABS: INR 1.1 (<1.2); Prothrombin Time 11.1 sec (9.0-12.0)
[2022-08-28] MEDS: ALBUMIN HUMAN 25% 50 ML in EMPTY BAG 1 BAG IVPB SCH ×4 (14:15→14:56)
--- NOTE | 2022-08-28 14:50 | US ---
Ultrasound-guided paracentesis. DATE OF EXAM: 08/28/2022 CLINICAL HISTORY: Ascites The procedure was discussed with the patient. The risks, complications, benefits, and alternatives we re discussed and any questions were answered. Informed consent was obtained. The patient was placed s upine on the ultrasound table and prepped and draped in the usual sterile fashion. All elements of maximal barrier technique were utilized. Under ultrasound guidance, access into the right lower quadrant was obtained, via the paracentesis catheter system and direct ultrasound guidanc e. The patient was stable throughout the procedure and remained stable upon discharge from Department of Radiology. IMPRESSION: Successful paracentesis under ultrasound guidance.
[2022-08-28 15:12] VITALS: RESP 14
[2022-08-28 15:39] VITALS: BP 100/62; PULSE 62
== END 2022-08-28 15:40 | disposition home or self-care (01) ==
LOC: RADPROMAIN 12:18
PROVIDERS: ATTEND Family Medicine
DX: R18.8 Other ascites (principal)
CPT/HCPCS: 82565; 85049; 85610; 36415; 49083; P9047

== ENCOUNTER 2022-09-11 12:16 | Day surgery (SDC) | payer MEDICARE ==
[2022-09-11 12:53] LABS: Mean Platelet Volume 8.3; Platelet Count 114 k/uL (150-450)
[2022-09-11 13:05] VITALS: RESP 16; TEMP 98
[2022-09-11 13:25] LABS: INR 1.1 (<1.2); Prothrombin Time 11.4 sec (9.0-12.0)
[2022-09-11] MEDS: ALBUMIN HUMAN 25% 50 ML in EMPTY BAG 1 BAG IVPB SCH ×3 (14:25→14:55)
[2022-09-11 14:39] VITALS: BP 94/50; PULSE 71
--- NOTE | 2022-09-11 14:47 | US ---
Ultrasound-guided paracentesis. DATE OF EXAM: 09/11/2022 CLINICAL HISTORY: 08/28/2022 The procedure was discussed with the patient. The risks, complications, benefits, and alternatives we re discussed and any questions were answered. Informed consent was obtained. The patient was placed s upine on the ultrasound table and prepped and draped in the usual sterile fashion. All elements of maximal barrier technique were utilized. Under ultrasound guidance, access into the right lower quadrant was obtained, via the paracentesis catheter system and direct ultrasound guidanc e. The patient was stable throughout the procedure and remained stable upon discharge from Department of Radiology. IMPRESSION: Successful paracentesis under ultrasound guidance.
== END 2022-09-11 14:58 | disposition home or self-care (01) ==
LOC: RADPROMAIN 12:16
PROVIDERS: ATTEND Family Medicine
DX: K70.31 Alcoholic cirrhosis of liver with ascites (principal)
CPT/HCPCS: 82565; 85049; 85610; 36415; 49083; P9047

== ENCOUNTER 2022-09-25 12:25 | Day surgery (SDC) | payer MEDICARE ==
[2022-09-25 13:08] VITALS: TEMP 97.9
[2022-09-25 13:31] LABS: Platelet Count 93 k/uL (150-450)
[2022-09-25 13:34] LABS: INR 1.1 (<1.2); Prothrombin Time 11.9 sec (9.0-12.0)
[2022-09-25] MEDS: ALBUMIN HUMAN 25% 50 ML in EMPTY BAG 1 BAG IVPB SCH ×4 (14:20→15:00)
[2022-09-25 15:22] VITALS: BP 89/59; PULSE 61; RESP 16
--- NOTE | 2022-09-25 15:31 | US ---
Ultrasound-guided paracentesis. DATE OF EXAM: 09/25/2022 CLINICAL HISTORY: Ascites The procedure was discussed with the patient. The risks, complications, benefits, and alternatives we re discussed and any questions were answered. Informed consent was obtained. The patient was placed s upine on the ultrasound table and prepped and draped in the usual sterile fashion. All elements of maximal barrier technique were utilized. Under ultrasound guidance, access into the right lower quadrant was obtained, via the paracentesis catheter system and direct ultrasound guidanc e. The patient was stable throughout the procedure and remained stable upon discharge from Department of Radiology. IMPRESSION: Successful paracentesis under ultrasound guidance.
== END 2022-09-25 15:22 | disposition home or self-care (01) ==
LOC: RADPROMAIN 12:25
PROVIDERS: ATTEND Family Medicine
DX: R18.8 Other ascites (principal)
CPT/HCPCS: 82565; 85049; 85610; 36415; 49083; P9047

== ENCOUNTER 2022-10-09 12:03 | Day surgery (SDC) | payer MEDICARE ==
[2022-10-09 12:58] VITALS: TEMP 98
[2022-10-09 13:03] LABS: Platelet Count 87 k/uL (150-450)
[2022-10-09 13:05] LABS: INR 1.2 (<1.2)
[2022-10-09] MEDS: ALBUMIN HUMAN 25% 50 ML in EMPTY BAG 1 BAG IVPB SCH ×3 (13:22→15:05)
[2022-10-09 14:13] VITALS: RESP 20
[2022-10-09 14:14] VITALS: PULSE 71
[2022-10-09 15:05] VITALS: BP 101/62
--- NOTE | 2022-10-10 08:15 | US ---
Ultrasound-guided paracentesis. DATE OF EXAM: 10/09/2022 CLINICAL HISTORY: Ascites The procedure was discussed with the patient. The risks, complications, benefits, and alternatives we re discussed and any questions were answered. Informed consent was obtained. The patient was placed s upine on the ultrasound table and prepped and draped in the usual sterile fashion. All elements of maximal barrier technique were utilized. Under ultrasound guidance, access into the right lower quadrant was obtained, via the paracentesis catheter system and direct ultrasound guidanc e. Approximately 6.8 liters of straw-colored fluid was removed. The patient was stable throughout the pr ocedure and remained stable upon discharge from Department of Radiology. IMPRESSION: Successful paracentesis under ultrasound guidance.
== END 2022-10-09 14:45 | disposition home or self-care (01) ==
LOC: RADPROMAIN 12:03
PROVIDERS: ATTEND Family Medicine
DX: R18.8 Other ascites (principal)
CPT/HCPCS: 82565; 85049; 85610; 36415; 49083; P9047

== ENCOUNTER 2022-10-23 12:21 | Day surgery (SDC) | payer MEDICARE ==
[2022-10-23 12:59] VITALS: TEMP 97.8
[2022-10-23 13:07] LABS: Mean Platelet Volume 7.3
[2022-10-23 13:19] LABS: Platelet Count 94 k/uL (150-450)
[2022-10-23 13:20] LABS: INR 1.2 (<1.2); Prothrombin Time 12.2 sec (9.0-12.0)
[2022-10-23] MEDS: ALBUMIN HUMAN 25% 50 ML in EMPTY BAG 1 BAG IVPB SCH ×4 (14:14→15:01)
[2022-10-23 14:20] VITALS: RESP 16
[2022-10-23 15:29] VITALS: BP 96/51; PULSE 73
--- NOTE | 2022-10-23 15:48 | US ---
EXAMINATION TYPE: US paracentesis abd w/image DATE OF EXAM: 10/23/2022 CLINICAL HISTORY: 72-year-old male K70.31, alcoholic cirrhosis. The procedure was discussed with the patient. The risks, complications, benefits, and alternatives we re discussed and any questions were answered. Informed consent was obtained. The patient was placed s upine on the ultrasound table and prepped and draped in the usual sterile fashion. All elements of maximal barrier technique were utilized. Ultrasound was utilized to determine the precise skin entry site along the right lower quadrant. Utilizing trocar technique, a 6 Ghanaian safety centesis catheter was inserted into the right lower mahin drant ascites collection. Approximately 6.9 liters of slightly clear, straw-colored fluid was removed. The patient was stable t hroughout the procedure. The catheter was removed, hemostasis obtained, and a dressing placed. The patient remained stable upon discharge from Department of Radiology. IMPRESSION: Successful therapeutic paracentesis under ultrasound guidance. 6.9 L of fluid was removed.
== END 2022-10-23 15:12 | disposition home or self-care (01) ==
LOC: RADPROMAIN 12:21
PROVIDERS: ATTEND Family Medicine
DX: K70.31 Alcoholic cirrhosis of liver with ascites (principal)
CPT/HCPCS: 82565; 85049; 85610; 49083; P9047

== ENCOUNTER 2022-11-06 12:23 | Day surgery (SDC) | payer MEDICARE ==
[2022-11-06 13:09] VITALS: RESP 16; TEMP 97.9
[2022-11-06 13:11] LABS: Mean Platelet Volume 7.8
[2022-11-06 13:16] LABS: Platelet Count 89 k/uL (150-450)
[2022-11-06 13:19] LABS: African American GFR (CKD) 69 (>60 ml/min/1.73 sqM); Non-African American GFR(CKD) 59 (>60 ml/min/1.73 sqM)
[2022-11-06 13:28] LABS: INR 1.1 (<1.2); Prothrombin Time 11.3 sec (9.0-12.0)
[2022-11-06] MEDS: ALBUMIN HUMAN 25% 50 ML in EMPTY BAG 1 BAG IVPB SCH ×2 (14:10→14:11)
[2022-11-06 14:19] VITALS: BP 103/69; PULSE 69
--- NOTE | 2022-11-06 15:23 | US ---
Ultrasound-guided paracentesis. DATE OF EXAM: 11/06/2022 CLINICAL HISTORY: Ascites The procedure was discussed with the patient. The risks, complications, benefits, and alternatives we re discussed and any questions were answered. Informed consent was obtained. The patient was placed s upine on the ultrasound table and prepped and draped in the usual sterile fashion. All elements of maximal barrier technique were utilized. Under ultrasound guidance, access into the right lower quadrant was obtained, via the paracentesis catheter system and direct ultrasound guidanc e. Approximately 3.8 liters of straw-colored fluid was removed. The patient was stable throughout the pr ocedure and remained stable upon discharge from Department of Radiology. IMPRESSION: Successful paracentesis under ultrasound guidance.
== END 2022-11-06 14:33 | disposition home or self-care (01) ==
LOC: RADPROMAIN 12:23
PROVIDERS: ATTEND Family Medicine
DX: R18.8 Other ascites (principal)
CPT/HCPCS: 36415; 49083; 82565; 85049; 85610

== ENCOUNTER 2022-11-20 12:34 | Day surgery (SDC) | payer MEDICARE ==
[2022-11-20 13:04] LABS: Mean Platelet Volume 8.3; Platelet Count 82 k/uL (150-450)
[2022-11-20 13:14] LABS: INR 1.1 (<1.2); Prothrombin Time 11.6 sec (9.0-12.0)
[2022-11-20 13:28] LABS: African American GFR (CKD) 75 (>60 ml/min/1.73 sqM); Non-African American GFR(CKD) 64 (>60 ml/min/1.73 sqM)
[2022-11-20] MEDS: ALBUMIN HUMAN 25% 50 ML in EMPTY BAG 1 BAG IVPB SCH ×4 (13:49→15:03)
[2022-11-20 14:10] VITALS: TEMP 97.8
[2022-11-20 15:29] VITALS: BP 101/57; PULSE 62; RESP 18
--- NOTE | 2022-11-21 08:30 | US ---
Ultrasound-guided paracentesis. DATE OF EXAM: 11/20/2022 CLINICAL HISTORY: Ascites The procedure was discussed with the patient. The risks, complications, benefits, and alternatives we re discussed and any questions were answered. Informed consent was obtained. The patient was placed s upine on the ultrasound table and prepped and draped in the usual sterile fashion. All elements of maximal barrier technique were utilized. Under ultrasound guidance, access into the right lower quadrant was obtained, via the paracentesis catheter system and direct ultrasound guidanc e. Approximately 3.5 liters of straw-colored fluid was removed. The patient was stable throughout the pr ocedure and remained stable upon discharge from Department of Radiology. IMPRESSION: Successful paracentesis under ultrasound guidance.
== END 2022-11-20 15:17 | disposition home or self-care (01) ==
LOC: RADPROMAIN 12:34
PROVIDERS: ATTEND Family Medicine
DX: R18.8 Other ascites (principal)
CPT/HCPCS: 82565; 85049; 85610; 49083; P9047

== ENCOUNTER 2022-12-04 12:24 | Day surgery (SDC) | payer MEDICARE ==
[2022-12-04 12:57] VITALS: RESP 16
[2022-12-04 12:58] LABS: Mean Platelet Volume 8.3
[2022-12-04 13:00] LABS: Platelet Count 88 k/uL (150-450)
[2022-12-04 13:08] LABS: African American GFR (CKD) 68 (>60 ml/min/1.73 sqM); INR 1.1 (<1.2); Non-African American GFR(CKD) 59 (>60 ml/min/1.73 sqM); Prothrombin Time 11.7 sec (9.0-12.0)
[2022-12-04] MEDS: ALBUMIN HUMAN 25% 50 ML in EMPTY BAG 1 BAG IVPB SCH ×4 (14:04→14:31)
[2022-12-04 14:33] VITALS: BP 98/59; PULSE 60; TEMP 98
--- NOTE | 2022-12-04 15:09 | US ---
Ultrasound-guided paracentesis. DATE OF EXAM: 12/04/2022 CLINICAL HISTORY: Ascites The procedure was discussed with the patient. The risks, complications, benefits, and alternatives we re discussed and any questions were answered. Informed consent was obtained. The patient was placed s upine on the ultrasound table and prepped and draped in the usual sterile fashion. All elements of maximal barrier technique were utilized. Under ultrasound guidance, access into the right lower quadrant was obtained, via the paracentesis catheter system and direct ultrasound guidanc e. Approximately 7 liters of straw-colored fluid was removed. The patient was stable throughout the proc edure and remained stable upon discharge from Department of Radiology. IMPRESSION: Successful paracentesis under ultrasound guidance.
== END 2022-12-04 14:45 | disposition home or self-care (01) ==
LOC: RADPROMAIN 12:24
PROVIDERS: ATTEND Family Medicine
DX: R18.8 Other ascites (principal)
CPT/HCPCS: 82565; 85049; 85610; 36415; 49083; P9047

== ENCOUNTER 2023-01-15 12:19 | Day surgery (SDC) | payer MEDICARE ==
[2023-01-15 12:46] VITALS: RESP 16
[2023-01-15 13:01] LABS: Mean Platelet Volume 7.8
[2023-01-15 13:06] LABS: Platelet Count 79 k/uL (150-450)
[2023-01-15 13:24] LABS: African American GFR (CKD) 59 (>60 ml/min/1.73 sqM); INR 1.1 (<1.2); Non-African American GFR(CKD) 51 (>60 ml/min/1.73 sqM); Prothrombin Time 11.8 sec (9.0-12.0)
[2023-01-15 15:07] VITALS: BP 105/65; PULSE 63
[2023-01-15] MEDS: ALBUMIN HUMAN 25% 50 ML in EMPTY BAG 1 BAG IVPB SCH (15:15)
--- NOTE | 2023-01-15 15:23 | US ---
Ultrasound-guided paracentesis. DATE OF EXAM: 01/15/2023 CLINICAL HISTORY: Ascites The procedure was discussed with the patient. The risks, complications, benefits, and alternatives we re discussed and any questions were answered. Informed consent was obtained. The patient was placed s upine on the ultrasound table and prepped and draped in the usual sterile fashion. All elements of maximal barrier technique were utilized. Under ultrasound guidance, access into the left lower quadrant was obtained, via the paracentesis catheter system and direct ultrasound guidance . Approximately 4.2 liters of straw-colored fluid was removed. The patient was stable throughout the pr ocedure and remained stable upon discharge from Department of Radiology. IMPRESSION: Successful paracentesis under ultrasound guidance.
== END 2023-01-15 14:50 | disposition home or self-care (01) ==
LOC: RADPROMAIN 12:19
PROVIDERS: ATTEND Family Medicine
DX: R18.8 Other ascites (principal)
CPT/HCPCS: 49083; 82565; 85049; 85610

== ENCOUNTER → 2023-03-27 | Outpatient (CLI) | payer MEDICARE ==
[2023-03-28 01:29] LABS: ALT 19 U/L (10-49); AST 27 U/L (14-35); Albumin 3.5 d/dL (3.8-4.9); Albumin/Globulin Ratio 0.95 Ratio (1.60-3.17); Alkaline Phosphatase 67 U/L (41-126); Blood Urea Nitrogen 35.4 mg/dL (9.0-27.0); Calcium 9.5 mg/dL (8.7-10.3); Carbon Dioxide 22.6 mmol/L (21.6-31.8); Chloride 102 mmol/L (96-109); Globulin 3.7 d/dL (1.6-3.3); Glucose 90 mg/dL (70-110); HCT 30.5 % (39.6-50.0); HGB 9.3 d/dL (13.0-17.0); MCH 25.8 pg (27.0-32.0); MCHC 30.5 d/dL (32.0-37.0); MCV 84.7 FL (80.0-97.0); NRBC Per 100 WBC 0 X 10*3/uL (0.00-0.01); Platelet Count 147 X 10*3/uL (140-440); Potassium 5.1 mmol/L (3.5-5.5); RDW 15.3 % (11.5-14.5); Sodium 135 mmol/L (135-145); Total Bilirubin 0.4 mg/dL (0.3-1.2); Total Protein 7.2 d/dL (6.2-8.2); WBC 5.42 X 10*3/uL (4.50-10.00)
== END | disposition home or self-care (01) ==
LOC: LABWHC1 12:00
PROVIDERS: ATTEND Internal Medicine Gastroenterology
DX: K70.30 Alcoholic cirrhosis of liver without ascites (principal)
CPT/HCPCS: 36415; 80053; 82105; 85027

== ENCOUNTER → 2023-05-15 | Outpatient (CLI) | payer MEDICARE ==
[2023-05-15 18:41] LABS: HCT 29.2 % (39.6-50.0); HGB 8.6 g/dL (13.0-17.0); MCH 22.6 pg (27.0-32.0); MCHC 29.5 g/dL (32.0-37.0); MCV 76.8 FL (80.0-97.0); Mean Platelet Volume 11.5 FL (9.5-12.2); NRBC Per 100 WBC 0 X 10*3/uL (0.00-0.01); Platelet Count 156 X 10*3/uL (140-440); RDW 17.2 % (11.5-14.5); WBC 3.97 X 10*3/uL (4.50-10.00)
[2023-05-15 19:13] LABS: ALT 14 U/L (10-49); AST 29 U/L (14-35); Albumin 3.5 g/dL (3.8-4.9); Albumin/Globulin Ratio 0.81 Ratio (1.60-3.17); Alkaline Phosphatase 60 U/L (41-126); BUN/Creat Ratio 32.42 Ratio (12.00-20.00); Blood Urea Nitrogen 38.9 mg/dL (9.0-27.0); Calcium 9.1 mg/dL (8.7-10.3); Carbon Dioxide 22.6 mmol/L (21.6-31.8); Chloride 99 mmol/L (96-109); Globulin 4.3 g/dL (1.6-3.3); Glucose 90 mg/dL (70-110); Potassium 4.6 mmol/L (3.5-5.5); Sodium 133 mmol/L (135-145); Total Bilirubin 0.4 mg/dL (0.3-1.2); Total Protein 7.8 g/dL (6.2-8.2)
== END | disposition home or self-care (01) ==
LOC: LABWHC1 13:03
PROVIDERS: ATTEND Internal Medicine Gastroenterology
DX: K70.30 Alcoholic cirrhosis of liver without ascites (principal)
CPT/HCPCS: 36415; 80053; 82105; 85027

== ENCOUNTER → 2023-07-28 | Day surgery (SDC) | payer MEDICARE ==
[2023-07-27 11:38] VITALS: BMI 23.0
[~2023-07-28] MED LIST changes: -LACTATED RINGERS 1,000 ML IV SCH; -LIDOCAINE 1% (10MG/ML) FOR IV START INTRADERMA PRN; +LIDOCAINE 1% INJ 10MG/ML (20 ML MDV) ONE; +PROPOFOL 10 MG/ML 20 ML VIAL IV ONE
[2023-07-28] MEDS: LACTATED RINGERS 1,000 ML IV SCH (08:57)
[2023-07-28 09:13] VITALS: RESP 16; TEMP 98.2
[2023-07-28 09:19] LABS: Anisocytosis Slight; HCT 30.2 % (39.0-53.0); HGB 9.1 gm/dL (13.0-17.5); Hypochromasia Marked; MCH 22.1 pg (25.0-35.0); MCHC 30.1 g/dL (31.0-37.0); MCV 73.6 fL (80.0-100.0); Mean Platelet Volume 9.3; Microcytosis Moderate; Platelet Count 102 k/uL (150-450); RBC 4.11 m/uL (4.30-5.90); RDW 18.3 % (11.5-15.5); WBC 5.1 k/uL (3.8-10.6)
[2023-07-28 09:31] LABS: ALT 21 U/L (4-49); AST 35 U/L (17-59); African American GFR (CKD) 62 (>60 ml/min/1.73 sqM); Albumin 3.7 g/dL (3.5-5.0); Alkaline Phosphatase 68 U/L (38-126); Anion Gap 9 mmol/L; Blood Urea Nitrogen 58 mg/dL (9-20); Calcium 8.9 mg/dL (8.4-10.2); Carbon Dioxide 23 mmol/L (22-30); Chloride 104 mmol/L (98-107); Glucose 89 mg/dL (74-99); Non-African American GFR(CKD) 54 (>60 ml/min/1.73 sqM); Potassium 4.3 mmol/L (3.5-5.1); Sodium 136 mmol/L (137-145); Total Bilirubin 0.6 mg/dL (0.2-1.3); Total Protein 7.8 g/dL (6.3-8.2)
--- NOTE | 2023-07-28 09:44 | P.PCN ---
Date of Procedure: 07/28/23 Procedure(s) Performed: BRIEF HISTORY: Patient is a 73-year-old, pleasant, male scheduled for an upper endoscopy as a part of follow-up of esophageal varices. He has decompensated liver cirrhosis diagnosed 5 years ago. Last EGD with variceal ligation was in November 2022. PROCEDURE PERFORMED: Esophagogastroduodenoscopy with variceal ligation. PREOPERATIVE DIAGNOSIS: follow-up esophageal varices IV sedation per anesthesia. PROCEDURE: After informed consent was obtained, the patient was brought into the endoscopy unit. IV sedation was administered by Anesthesia under continuous monitoring. Initially the Olympus GIF-140 video endoscope was inserted into the mouth. Esophagus intubated without any difficulty. It was gradually advanced into the stomach and duodenum and carefully examined. The bulb and the second part of the duodenum appeared normal. The scope at this time was withdrawn to the stomach, adequately insufflated with air, and upon careful examination, mucosa of the antrum, body, cardia and the fundus had changes consistent with mild to moderate portal hypertensive gastropathy. The scope was then withdrawn into the esophagus. The GE junction was located at 39 cm from the incisors. There were large mid and distal esophageal varices identified. This endoscope was removed and esophageal variceal ligation equipment was introduced onto the tip of the scope and esophagus intubated without any difficulty. It was gradually advanced into the distal esophagus and using suction total of 6 bands were deployed in the distal and mid esophageal varices. The rest of theesophagus appeared normal. There were no erosions or ulcerations seen and the patient tolerated the procedure well. IMPRESSION: 1. Large mid and distal esophagus with ligation as described above 2. Moderate portal hypertensive gastropathy. RECOMMENDATIONS: The findings of this examination were discussed with the patient as well as his family. He was advised to be on a soft diet today. Plan a repeat EGD in 6 months.
[2023-07-28 10:17] VITALS: BP 120/67; PULSE 68
== END ==
LOC: ORWHC2ENDO 08:04
PROVIDERS: ATTEND Internal Medicine Gastroenterology
DX: I85.10 Secondary esophageal varices without bleeding (principal); K31.89 Other diseases of stomach and duodenum; K74.60 Unspecified cirrhosis of liver; K76.6 Portal hypertension
CPT/HCPCS: 80053; 85027; 82105; 43255; J2001; J2704

== ENCOUNTER → 2023-08-20 | Outpatient (CLI) | payer MEDICARE ==
--- NOTE | 2023-08-20 10:19 | US ---
EXAMINATION TYPE: US liver DATE OF EXAM: 08/20/2023 COMPARISON: CT 2022, US 2022 CLINICAL INDICATION: Male, 73 years old with history of K70.30 ALCOHOLIC CIRRHOSIS OF LIVER WITHOUT A SCITE; Alcoholic cirrhosis. TECHNIQUE: Multiple sonographic images of the right upper quadrant are obtained. FINDINGS: EXAM MEASUREMENTS: Liver Length: 12.7 cm Gallbladder Wall: 0.42 cm CBD: Obscured Right Kidney: 10.0 x 5.5 x 4.6 cm RECEIVER NOTES: Limited due to great amount of gas Pancreas: Limited Liver: Appears very coarse/heterogeneous with increased echogenicity. Small in size. Gallbladder: Limited. Hyperechoic focus seen within the neck: 1.1 x 1.0 x 0.5 cm. Wall appears thickened. Evidence for sonographic Cristobal's sign: No CBD: Obscured Right Kidney: No hydronephrosis or masses seen -Portal vein appears enlarged measuring 18 mm. -SMV appears enlarged measuring 19 mm. Ascites seen within RUQ IMPRESSION: 1. Hepatic cirrhosis with small ascites. 2. Gallbladder wall thickening with layering debris/cholelithiasis which can be seen in setting of t hird spacing of fluid in the setting of liver failure.
== END | disposition home or self-care (01) ==
LOC: RADUSWWP 09:20
PROVIDERS: ATTEND Internal Medicine Gastroenterology
DX: K70.31 Alcoholic cirrhosis of liver with ascites (principal); K80.20 Calculus of gallbladder without cholecystitis without obstruction
CPT/HCPCS: 76705

== ENCOUNTER 2023-10-05 15:44 | Inpatient (IN) | payer MEDICARE ==
--- NOTE | 2023-10-05 16:31 | ED ---
Abdominal Pain HPI - General Chief Complaint: Abdominal Pain Stated Complaint: Difficulty urinating, back pain, stomach pain Time Seen by Provider: 10/05/23 16:30 Source: patient, RN notes reviewed Mode of arrival: ambulatory Limitations: no limitations - History of Present Illness Initial Comments: 73-year-old male presenting to the ER with a chief complaint of abdominal and back pain. is providing most of HPI and past medical history. She states patient has a history of an inguinal hernia which is inoperable. She reports for the past 24 hours he has been having an increase in abdominal pain and lower back pain. She also reports multiple episodes of emesis. Patient states his bowel movements have not been normal and he has been constipated. Last bowel movement this morning. He has been passing less gas as normal. Appetite has been decreased. Reports fevers and chills. Denies any urinary complaints. Denies any headache, cough, congestion, chest pain, shortness of breath, peripheral edema. - Related Data Home Medications Medication Instructions Recorded Confirmed Atorvastatin [Lipitor] 40 mg PO DAILY@129907/12/14 10/05/23 traMADol HCl [Ultram] 100 mg PO BID 07/12/14 10/05/23 Aspirin [Adult Low Dose Aspirin EC] 81 mg PO DAILY@129908/06/20 10/05/23 Loratadine [Claritin] 10 mg PO DAILY@129908/06/20 10/05/23 atenoloL [Tenormin] 25 mg PO DAILY@1300 08/06/20 10/05/23 Omeprazole 20 mg PO DAILY@129908/31/20 10/05/23 Fluticasone Nasal Palm [Flonase 1 spr EA NOSTRIL 03/25/21 10/05/23 Nasal Palm] Furosemide [Lasix] 40 mg PO DAILY@129907/09/21 10/05/23 Lactulose 10 gm PO BID 12/06/21 10/05/23 Cholecalciferol [Vitamin D3 (25 125 mcg PO TH 07/27/23 10/05/23 Mcg = 1000 Iu)] Folic Acid 1 mg PO Q2D@129907/27/23 10/05/23 Ferocon 1 cap PO DAILY@129910/05/23 10/05/23 QUEtiapine [SEROquel] 25 mg PO HS PRN 10/05/23 10/05/23 Spironolactone [Aldactone] 200 mg PO DAILY@1300 10/05/23 10/05/23 Allergies Allergy/AdvReac Type Severity Reaction Status Date / Time No Known Allergies Allergy Verified 10/05/23 19:34 Review of Systems ROS Statement: Those systems with pertinent positive or pertinent negative responses have been documented in the HPI. ROS Other: All systems not noted in ROS Statement are negative. Past Medical History Past Medical History: GERD/Reflux, Hyperlipidemia, Hypertension, Liver Disease, Myocardial Infarction (DE) Additional Past Medical History / Comment(s): clot in liver. esophageal varices. 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 Hernia. Last Myocardial Infarction Date:: unk History of Any Multi-Drug Resistant Organisms: None Reported Past Surgical History: Heart Catheterization With Stent Additional Past Surgical History / Comment(s): 2 heart stents, multiple large volume paracentesis procedures,left shoulder repair Past Anesthesia/Blood Transfusion Reactions: No Reported Reaction Date of Last Stent Placement:: 2002 Past Psychological History: No Psychological Hx Reported Smoking Status: Former smoker Past Alcohol Use History: None Reported Past Drug Use History: None Reported - Past Family History Mother Family Medical History: Cancer Sister(s) Family Medical History: Cancer Additional Family Medical History / Comment(s): 2 sisters-female General Exam - General Exam Comments Initial Comments: Visual Physical Exam Vital signs reviewed General: No acute distress, uncomfortable Head: Normocephalic, atraumatic Eyes: PERRLA, EOMI ENT: Airway patent Chest: Nonlabored breathing Skin: No visual rash, normal skin tone Neuro: Alert and oriented 3 Musculoskeletal: No gross abnormalities Limitations: no limitations General appearance: alert, in no apparent distress Respiratory exam: Present: normal lung sounds bilaterally. Absent: respiratory distress, wheezes, rales, rhonchi, stridor Cardiovascular Exam: Present: regular rate, normal rhythm, normal heart sounds. Absent: systolic murmur, diastolic murmur, rubs, gallop, clicks GI/Abdominal exam: Present: soft, tenderness (Lower quadrants), normal bowel sounds. Absent: distended, guarding, rebound, rigid Neurological exam: Present: alert, oriented X3, CN II-XII intact Skin exam: Present: warm, dry, intact, normal color. Absent: rash Course Vital Signs 10/05/23 10/05/23 15:51 20:00 Temperature 97.8 F Pulse Rate 75 80 Respiratory 18 18 Rate Blood Pressure 111/54 108/67 O2 Sat by Pulse 97 98 Oximetry - Reevaluation(s) Reevaluation #1: 10/05/23 20:08 Case discussed with Ar Lopez [facility] who accepts medical admission. Medical Decision Making - Medical Decision Making I performed the quick note portion of this chart. Electronically signed by OVIDIO Maddox-C Was pt. sent in by a medical professional or institution (OVIDIO Roach, SODIUM METHYLATE OPERATOR, urgent care, hospital, or assisted...) When possible be specific @ -No Did you speak to anyone other than the patient for history (EMS, parent, family, police, friend...)? What history was obtained from this source @ - aiding in HPI and past medical history. Did you review nursing and triage notes (agree or disagree)? Why? @ -I reviewed and agree with nursing and triage notes Were old charts reviewed (outside hosp., previous admission, EMS record, old EKG, old radiological studies, urgent care reports/EKG's, assisted records)? Report findings @ -No old charts were reviewed Differential Diagnosis (chest pain, altered mental status, abdominal pain women, abdominal pain men, vaginal bleeding, weakness, fever, dyspnea, syncope, headache, dizziness, GI bleed, back pain, seizure, CVA, palpatations, mental health, musculoskeletal)? @ -Differential Abdominal Pain Men: Appendicitis, cholecystitis, diverticulosis, ischemic bowel, pancreatitis, hepatitis, UTI, gastroenteritis, AAA, incarcerated hernia, bowel obstruction, constipation, inflammatory bowel, hepatitis, peptic ulcer disease, splenic infarction, perforated viscus, testicular torsion, this is not meant to be an all-inclusive list EKG interpreted by me (3pts min.). @ -None X-rays interpreted by me (1pt min.). @ -None done CT interpreted by me (1pt min.). @ -CT abdomen pelvis significant for left lower lobe pneumonia. Marked ascites with large inguinal hernias containing fluid. Marked cirrhosis and splenomegaly. U/S interpreted by me (1pt. min.). @ -None done What testing was considered but not performed or refused? (CT, X-rays, U/S, labs)? Why? @ -None What meds were considered but not given or refused? Why? @ -None Did you discuss the management of the patient with other professionals (professionals i.e. DrChastity, PA, SODIUM METHYLATE OPERATOR, lab, RT, psych nurse, vp digital marketing social media and crm, bus analyst, teacher, medical officer, continuous pillowcase cutter)? Give summary @ -No Was smoking cessation discussed for >3mins.? @ -No Was critical care preformed (if so, how long)? @ -No Were there social determinants of health that impacted care today? How? (Homelessness, low income, unemployed, alcoholism, drug addiction, transportation, low edu. Level, literacy, decrease access to med. care, longterm, rehab)? @ -No Was there de-escalation of care discussed even if they declined (Discuss DNR or withdrawal of care, Hospice)? DNR status @ -No What co-morbidities impacted this encounter? (DM, HTN, Smoking, COPD, CAD, Cancer, CVA, ARF, Chemo, Hep., AIDS, mental health diagnosis, sleep apnea, morbid obesity)? @ -Cirrhosis of liver Was patient admitted / discharged? Hospital course, mention meds given and route, prescriptions, significant lab abnormalities, going to OR and other pertinent info. @ -73-year-old male presented to ER with chief complaint of abdominal pain. History and physical exam completed. Vitals stable. Labs obtained significant for white blood cell count 10.7, hemoglobin 8.6, JAROD (BUN 63, creatinine 1.59). Lipase 1965, amylase 270. CT abdomen pelvis significant for left lower lobe infiltrate and marked ascites. Large inguinal hernias containing fluid. Sy mptomatic control in the ER. Admission considered for pancreatitis and pneumonia. Case discussed with [facility], Ar Kelley, who accept medical admission. Results discussed with patient, all questions answered. Patient started on IV Rocephin and azithromycin for pneumonia. IR and ID on consult. Patient agreeable for admission. Case discussed with ED attending, Dr. Mccord. Undiagnosed new problem with uncertain prognosis? @ -No Drug Therapy requiring intensive monitoring for toxicity (Heparin, Nitro, Insulin, Cardizem)? @ -No Were any procedures done? @ -No Diagnosis/symptom? @ -Pancreatitis/ascites Acute, or Chronic, or Acute on Chronic? @ -Acute Uncomplicated (without systemic symptoms) or Complicated (systemic symptoms)? @ -Complicated Side effects of treatment? @ -No Exacerbation, Progression, or Severe Exacerbation? @ -No Poses a threat to life or bodily function? How? (Chest pain, [place], [place], pneumonia, PE, COPD, DKA, ARF, appy, cholecystitis, CVA, Diverticulitis, Homicidal, Suicidal, threat to staff... and all critical care pts) @ -yes, pneumonia can lead to sepsis - Lab Data Result diagrams: 10/05/23 16:59 10/05/23 16:59 Lab Results 10/05/23 10/05/23 10/05/23 Range/Units 16:59 16:59 16:59 WBC 10.7 H (3.8-10.6) k/uL RBC 3.94 L (4.30-5.90) m/uL Hgb 8.6 L (13.0-17.5) gm/dL Hct 28.2 L (39.0-53.0) % MCV 71.6 L (80.0-100.0) fL MCH 21.7 L (25.0-35.0) pg MCHC 30.3 L (31.0-37.0) g/dL RDW 18.7 H (11.5-15.5) % Plt Count 129 L (150-450) k/uL MPV 8.4 Neutrophils % 89 % Lymphocytes % 2 % Monocytes % 7 % Eosinophils % 0 % Basophils % 0 % Neutrophils # 9.5 H (1.3-7.7) k/uL Lymphocytes # 0.2 L (1.0-4.8) k/uL Monocytes # 0.7 (0-1.0) k/uL Eosinophils # 0.0 (0-0.7) k/uL Basophils # 0.0 (0-0.2) k/uL Hypochromasia Marked Poikilocytosis Slight Anisocytosis Slight Microcytosis Marked Sodium 134 L (137-145) mmol/L Potassium 4.9 (3.5-5.1) mmol/L Chloride 103 (98-107) mmol/L Carbon Dioxide 20 L (22-30) mmol/L Anion Gap 11 mmol/L BUN 63 H (9-20) mg/dL Creatinine 1.59 H (0.66-1.25) mg/dL Est GFR (CKD-EPI)AfAm 49 (>60 ml/min/1.73 sqM) Est GFR (CKD-EPI)NonAf 42 (>60 ml/min/1.73 sqM) Glucose 108 H (74-99) mg/dL Plasma Lactic Acid Waqas 1.4 (0.7-2.0) mmol/L Calcium 8.9 (8.4-10.2) mg/dL Total Bilirubin 0.5 (0.2-1.3) mg/dL AST 41 (17-59) U/L ALT 20 (4-49) U/L Alkaline Phosphatase 79 (38-126) U/L Total Protein 7.5 (6.3-8.2) g/dL Albumin 3.3 L (3.5-5.0) g/dL Amylase 270 H (30-110) U/L Lipase 1965 H (23-300) U/L - Radiology Data Radiology results: report reviewed, image reviewed Disposition Clinical Impression: Ascites, Pancreatitis Disposition: ADMITTED IP TO THIS [facility] Condition: Fair Referrals: Amaury Archer MD [Primary Care Provider] - 1-2 days Time of Disposition: 19:57
[2023-10-05] MEDS: SODIUM CHLORIDE 0.9% 1,000 ML IV STA (17:13)
[2023-10-05] MEDS: ONDANSETRON 4 MG/2 ML VIAL IVP STA (17:14)
[2023-10-05] MEDS: HYDROmorphone 0.5 MG/0.5 ML SYRINGE IVP STA ×2 (17:14→20:35)
[2023-10-05 17:38] LABS: Anisocytosis Slight; Basophils % (A) 0 %; Eosinophils % (A) 0 %; HCT 28.2 % (39.0-53.0); HGB 8.6 gm/dL (13.0-17.5); Hypochromasia Marked; Lymphocytes # (A) 0.2 k/uL (1.0-4.8); Lymphocytes % (A) 2 %; MCH 21.7 pg (25.0-35.0); MCHC 30.3 g/dL (31.0-37.0); MCV 71.6 fL (80.0-100.0); Mean Platelet Volume 8.4; Microcytosis Marked; Monocytes # (A) 0.7 k/uL (0-1.0); Monocytes % (A) 7 %; Neutrophils # (A) 9.5 k/uL (1.3-7.7); Neutrophils % (A) 89 %; Platelet Count 129 k/uL (150-450); Poikilocytosis Slight; RBC 3.94 m/uL (4.30-5.90); RDW 18.7 % (11.5-15.5); WBC 10.7 k/uL (3.8-10.6)
[2023-10-05 18:04] LABS: ALT 20 U/L (4-49); AST 41 U/L (17-59); African American GFR (CKD) 49 (>60 ml/min/1.73 sqM); Albumin 3.3 g/dL (3.5-5.0); Alkaline Phosphatase 79 U/L (38-126); Amylase 270 U/L (30-110); Anion Gap 11 mmol/L; Blood Urea Nitrogen 63 mg/dL (9-20); Calcium 8.9 mg/dL (8.4-10.2); Carbon Dioxide 20 mmol/L (22-30); Chloride 103 mmol/L (98-107); Glucose 108 mg/dL (74-99); Non-African American GFR(CKD) 42 (>60 ml/min/1.73 sqM); Potassium 4.9 mmol/L (3.5-5.1); Sodium 134 mmol/L (137-145); Total Bilirubin 0.5 mg/dL (0.2-1.3); Total Protein 7.5 g/dL (6.3-8.2)
[2023-10-05 18:18] LABS: Lipase 1965 U/L (23-300)
--- NOTE | 2023-10-05 19:46 | CT ---
EXAMINATION TYPE: CT abdomen pelvis w con DATE OF EXAM: 10/05/2023 COMPARISON: 08/20/2022 HISTORY: abdominal pain, bloating CT DLP: 1133.8 mGycm Automated exposure control for dose reduction was used. TECHNIQUE: Helical acquisition of images was performed from the lung bases through the pelvis. CONTRAST: Performed without Oral Contrast and with IV Contrast, patient injected with 80 mL of Isovue 300. FINDINGS: There is a small partially consolidative opacity in the left lung base possibly indicating acute pneu monia. There are multiple gallstones.. There is no biliary ductal dilatation. There is marked lobulation of the liver margin which is markedly diminished in size consistent with s evere cirrhosis. There is splenomegaly. There is marked ascites within the abdomen or pelvis. There a re large bilateral inguinal hernias containing ascitic fluid. There is no solid renal mass or hydronephrosis. The caliber the abdominal aorta is normal. The bowel loops are nondilated and there is no bowel obstruction. There is no pelvic mass or adenopathy. IMPRESSION: 1. Left lower lobe infiltrate indicating possible pneumonia. 2. Marked ascites. 3. Marked cirrhosis and splenomegaly. 4. Cholelithiasis. 5. Large inguinal hernias containing fluid
[2023-10-05] MEDS ORDERED: NALOXONE 0.4 MG/ML 1 ML VIAL IV PRN (20:11)
[2023-10-05 20:23] LABS: Appearance,Urine Clear (Clear); Bacteria,Urine Many /hpf; Bilirubin,Urine Negative (Negative); Blood,Urine Negative (Negative); Color,Urine Colorless; Glucose,Urine (UA) Negative (Negative); Ketones,Urine Negative (Negative); Leukocyte Esterase,Urine Small (Negative); Mucus,Urine Few /hpf; Nitrite,Urine Positive (Negative); PH, Urine 5.5 (5.0-8.0); Protein,Urine Negative (Negative); RBC,Urine 1 /hpf (0-5); Specific Gravity,Urine 1.016 (1.001-1.035); Squamous Epithelial Cell,Urine <1 /hpf (0-4); Urobilinogen,Urine <2.0 mg/dL (<2.0); WBC,Urine 6 /hpf (0-5)
[2023-10-05] MEDS: SODIUM CHLORIDE 0.9% 1,000 ML IV SCH (21:23)
[2023-10-05] MEDS: cefTRIAXone IN SWFI 1,000 MG/10 ML SYRINGE IVP STA (21:24)
[2023-10-05] MEDS: AZITHROMYCIN 250 MG TAB PO STA (21:24)
[2023-10-06] MEDS: HYDROmorphone 0.5 MG/0.5 ML SYRINGE IVP PRN (00:28)
[2023-10-06] MEDS: ONDANSETRON 4 MG/2 ML VIAL IVP PRN (03:21)
[2023-10-06 09:57] LABS: Anisocytosis Slight; Basophils % (A) 0 %; Eosinophils % (A) 0 %; HCT 27.6 % (39.0-53.0); HGB 8.3 gm/dL (13.0-17.5); Hypochromasia Marked; Lymphocytes # (A) 0.2 k/uL (1.0-4.8); Lymphocytes % (A) 2 %; MCH 21.6 pg (25.0-35.0); MCV 72.1 fL (80.0-100.0); Microcytosis Marked; Monocytes # (A) 0.6 k/uL (0-1.0); Monocytes % (A) 7 %; Neutrophils # (A) 7.7 k/uL (1.3-7.7); Neutrophils % (A) 89 %; Platelet Count 115 k/uL (150-450); Poikilocytosis Slight; RBC 3.82 m/uL (4.30-5.90); RDW 18.9 % (11.5-15.5); WBC 8.7 k/uL (3.8-10.6)
--- NOTE | 2023-10-06 10:23 | US ---
EXAMINATION TYPE: US abdomen limited DATE OF EXAM: 10/06/2023 COMPARISON: NONE CLINICAL INDICATION: Male, 73 years old with history of assess for ascites; Ascites check. TECHNIQUE: Multiple sonographic images taken within the abdomen. *Ascites seen within all four quadrants of the abdomen. Largest fluid pocket was seen on the right side. IMPRESSION: Ascites
[2023-10-06 11:40] LABS: INR 1.2 (<1.2); Prothrombin Time 12.9 sec (10.0-12.5)
[2023-10-06] MEDS ORDERED: SPIRONOLACTONE 25 MG TAB PO SCH (13:00)
[2023-10-06] MEDS ORDERED: FUROSEMIDE 40 MG TAB PO SCH (13:00)
--- NOTE | 2023-10-06 14:32 | US ---
Ultrasound-guided paracentesis. DATE OF EXAM: 10/06/2023 CLINICAL HISTORY: Ascites The procedure was discussed with the patient. The risks, complications, benefits, and alternatives we re discussed and any questions were answered. Informed consent was obtained. The patient was placed s upine on the ultrasound table and prepped and draped in the usual sterile fashion. All elements of maximal barrier technique were utilized. Under ultrasound guidance, access into the right lower quadrant was obtained, via the paracentesis catheter system and direct ultrasound guidanc e. Approximately 4.8 liters of straw-colored fluid was removed. The patient was stable throughout the pr ocedure and remained stable upon discharge from Department of Radiology. IMPRESSION: Successful paracentesis under ultrasound guidance.
[2023-10-06] MEDS: SPIRONOLACTONE 25 MG TAB PO SCH (15:33)
[2023-10-06] MEDS: ATORVASTATIN 40 MG TAB PO SCH (15:33)
[2023-10-06] MEDS: atenoloL 25 MG TAB PO SCH (15:33)
[2023-10-06] MEDS: ASPIRIN 81 MG PO SCH (15:33)
[2023-10-06] MEDS: PANTOPRAZOLE 40 MG TABLET PO SCH (15:33)
--- NOTE | 2023-10-06 15:54 | P.GSCN ---
History of Present Illness Consult date: 10/06/23 History of present illness: CHIEF COMPLAINT: Abdominal pain HISTORY OF PRESENT ILLNESS: This is a 73-year-old male who presents to the hospital with complaints of increasing abdominal pain and back pain over the last 24 hours. Patient has had multiple episodes of emesis. He has been having bowel movements. He has been constipated. He has been having flatus. Reports a decreased appetite. Patient has a known history of alcoholic liver cirrhosis and esophageal varices. His last EGD was in July 28, 2023 which had revealed a large mid and distal esophageal varices with ligation and moderate portal hypertensive gastropathy. Patient was found to have evidence of pancreatitis with elevated lipase levels. CT scan abdomen pelvis had reported marked ascites and marked cirrhosis and splenomegaly. And bilateral inguinal hernias. Gallstones noted. Patient seen and examined by Dr. Reeves PAST MEDICAL HISTORY: GERD/Reflux, Hyperlipidemia, Hypertension, Liver Disease, Myocardial Infarction ([place]), clot in liver. esophageal varices. 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 Hernia, coronary disease PAST SURGICAL HISTORY: 2 heart stents, multiple large volume paracentesis procedures,left shoulder repair MEDICATIONS: See below ALLERGIES: See below SOCIAL HISTORY: No illicit drug use. REVIEW OF SYSTEMS: CONSTITUTIONAL: Denies fever or chills. HEENT: Denies blurred vision, vision changes, or eye pain. Denies hemoptysis CARDIOVASCULAR: Denies chest pain or pressure. RESPIRATORY: No shortness of breath. GASTROINTESTINAL: See HPI for pertinent findings HEMATOLOGIC: Denies bleeding disorders. GENITOURINARY: Denies any blood in urine or increased urinary frequency. SKIN: Denies pruitis. Denies rash. PHYSICAL EXAM: VITAL SIGNS: Reviewed GENERAL: no acute distress. HEENT: No sclera icterus. Extraocular movements grossly intact. Moist buccal mucosa. Head is atraumatic, normocephalic. No nasal drainage. ABDOMEN: Soft. Distended. Evidence of ascites fluid. Evidence of bilateral inguinal hernia NEUROLOGIC: Awake and alert LABORATORY DATA: WBC 10.7 down to 8.7 Hgb 8.3 platelets 115, HGB in July 2022 was 11.7 INR 1.2 Sodium is 134 potassium is 4.9 creatinine 1.59 Lactic acid 1.4 Total bilirubin 0.5 AST 41 ALT 20 Lipase 1965 down to 531 IMAGING: CT scan abdomen pelvis reported left lower lobe infiltrate indicating possible pneumonia. Marked ascites. Marked cirrhosis and splenomegaly. Cholelithiasis. Large inguinal hernias containing fluid. Abdominal ultrasound with ascites ASSESSMENT: 1. Acute pancreatitis 2. Cholelithiasis noted on CT scan 3. History of liver cirrhosis and ascites requiring prior paracentesis 4. Microcytic anemia 5. Bilateral inguinal hernias PLAN: -Patient scheduled for paracentesis with IR service today for abdominal ascites -Patient scheduled for EGD and colonoscopy on with Dr. Reeves for further evaluation of patient's anemia -Keep patient n.p.o. for bowel rest -Continue IV fluids -Repeat labs in a.m. Physician Merchandising Intern note has been reviewed by physician. Signing provider agrees with the documented findings, assessment, and plan of care. Past Medical History Past Medical History: GERD/Reflux, Hyperlipidemia, Hypertension, Liver Disease, Myocardial Infarction ([place]) Additional Past Medical History / Comment(s): clot in liver. esophageal varices. 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 Hernia. Last Myocardial Infarction Date:: unk History of Any Multi-Drug Resistant Organisms: None Reported Past Surgical History: Heart Catheterization With Stent Additional Past Surgical History / Comment(s): 2 heart stents, multiple large volume paracentesis procedures,left shoulder repair Past Anesthesia/Blood Transfusion Reactions: No Reported Reaction Date of Last Stent Placement:: 2002 Past Psychological History: No Psychological Hx Reported Smoking Status: Former smoker Past Alcohol Use History: None Reported Past Drug Use History: None Reported - Past Family History Mother Family Medical History: Cancer Sister(s) Family Medical History: Cancer Additional Family Medical History / Comment(s): 2 sisters-female Medications and Allergies Home Medications Medication Instructions Recorded Confirmed Type Atorvastatin [Lipitor] 40 mg PO DAILY@129907/12/14 10/05/23 History traMADol HCl [Ultram] 100 mg PO BID 07/12/14 10/05/23 History Aspirin [Adult Low Dose Aspirin EC] 81 mg PO DAILY@129908/06/20 10/05/23 History Loratadine [Claritin] 10 mg PO DAILY@129908/06/20 10/05/23 History atenoloL [Tenormin] 25 mg PO DAILY@129908/06/20 10/05/23 History Omeprazole 20 mg PO DAILY@129908/31/20 10/05/23 History Fluticasone Nasal [place] [Flonase 1 spr EA NOSTRIL HS 03/25/21 10/05/23 History Nasal [place]] Furosemide [Lasix] 40 mg PO DAILY@1300 07/09/21 10/05/23 History Lactulose 10 gm PO BID 12/06/21 10/05/23 History Cholecalciferol [Vitamin D3 (25 125 mcg PO TH 07/27/23 10/05/23 History Mcg = 1000 Iu)] Folic Acid 1 mg PO Q2D@1300 07/27/23 10/05/23 History Ferocon 1 cap PO DAILY@1300 10/05/23 10/05/23 History QUEtiapine [SEROquel] 25 mg PO HS PRN 10/05/23 10/05/23 History Spironolactone [Aldactone] 200 mg PO DAILY@129910/05/23 10/05/23 History Allergies Allergy/AdvReac Type Severity Reaction Status Date / Time No Known Allergies Allergy Verified 10/05/23 19:34 Surgical - Exam Vital Signs Temp Pulse Resp BP Pulse Ox 97.8 F 75 18 111/54 97 10/05/23 15:51 10/05/23 15:51 10/05/23 15:51 10/05/23 15:51 10/05/23 15:51 Results - Labs 10/06/23 08:25 10/05/23 16:59 Abnormal Lab Results - Last 24 Hours (Table) 10/05/23 10/05/23 10/05/23 Range/Units 16:59 16:59 19:45 WBC 10.7 H (3.8-10.6) k/uL RBC 3.94 L (4.30-5.90) m/uL Hgb 8.6 L (13.0-17.5) gm/dL Hct 28.2 L (39.0-53.0) % MCV 71.6 L (80.0-100.0) fL MCH 21.7 L (25.0-35.0) pg MCHC 30.3 L (31.0-37.0) g/dL RDW 18.7 H (11.5-15.5) % Plt Count 129 L (150-450) k/uL Neutrophils # 9.5 H (1.3-7.7) k/uL Lymphocytes # 0.2 L (1.0-4.8) k/uL PT (10.0-12.5) sec INR (<1.2) Sodium 134 L (137-145) mmol/L Carbon Dioxide 20 L (22-30) mmol/L BUN 63 H (9-20) mg/dL Creatinine 1.59 H (0.66-1.25) mg/dL Glucose 108 H (74-99) mg/dL Albumin 3.3 L (3.5-5.0) g/dL Amylase 270 H (30-110) U/L Lipase 1965 H (23-300) U/L Ur Leukocyte Esterase Small H (Negative) Urine WBC 6 H (0-5) /hpf Urine WBC Clumps Occasional H (None) /hpf Urine Bacteria Many H (None) /hpf Urine Mucus Few H (None) /hpf 10/06/23 10/06/23 10/06/23 Range/Units 08:25 08:25 10:56 WBC (3.8-10.6) k/uL RBC 3.82 L (4.30-5.90) m/uL Hgb 8.3 L (13.0-17.5) gm/dL Hct 27.6 L (39.0-53.0) % MCV 72.1 L (80.0-100.0) fL MCH 21.6 L (25.0-35.0) pg MCHC 30.0 L (31.0-37.0) g/dL RDW 18.9 H (11.5-15.5) % Plt Count 115 L (150-450) k/uL Neutrophils # (1.3-7.7) k/uL Lymphocytes # 0.2 L (1.0-4.8) k/uL PT 12.9 H (10.0-12.5) sec INR 1.2 H (<1.2) Sodium (137-145) mmol/L Carbon Dioxide (22-30) mmol/L BUN (9-20) mg/dL Creatinine (0.66-1.25) mg/dL Glucose (74-99) mg/dL Albumin (3.5-5.0) g/dL Amylase (30-110) U/L Lipase 531 H (23-300) U/L Ur Leukocyte Esterase (Negative) Urine WBC (0-5) /hpf Urine WBC Clumps (None) /hpf Urine Bacteria (None) /hpf Urine Mucus (None) /hpf Diabetes panel 10/05/23 Range/Units 16:59 Sodium 134 L (137-145) mmol/L Potassium 4.9 (3.5-5.1) mmol/L Chloride 103 (98-107) mmol/L Carbon Dioxide 20 L (22-30) mmol/L BUN 63 H (9-20) mg/dL Creatinine 1.59 H (0.66-1.25) mg/dL Glucose 108 H (74-99) mg/dL Calcium 8.9 (8.4-10.2) mg/dL AST 41 (17-59) U/L ALT 20 (4-49) U/L Alkaline Phosphatase 79 (38-126) U/L Total Protein 7.5 (6.3-8.2) g/dL Albumin 3.3 L (3.5-5.0) g/dL Calcium panel 10/05/23 Range/Units 16:59 Calcium 8.9 (8.4-10.2) mg/dL Albumin 3.3 L (3.5-5.0) g/dL Pituitary panel 10/05/23 Range/Units 16:59 Sodium 134 L (137-145) mmol/L Potassium 4.9 (3.5-5.1) mmol/L Chloride 103 (98-107) mmol/L Carbon Dioxide 20 L (22-30) mmol/L BUN 63 H (9-20) mg/dL Creatinine 1.59 H (0.66-1.25) mg/dL Glucose 108 H (74-99) mg/dL Calcium 8.9 (8.4-10.2) mg/dL Adrenal panel 10/05/23 Range/Units 16:59 Sodium 134 L (137-145) mmol/L Potassium 4.9 (3.5-5.1) mmol/L Chloride 103 (98-107) mmol/L Carbon Dioxide 20 L (22-30) mmol/L BUN 63 H (9-20) mg/dL Creatinine 1.59 H (0.66-1.25) mg/dL Glucose 108 H (74-99) mg/dL Calcium 8.9 (8.4-10.2) mg/dL Total Bilirubin 0.5 (0.2-1.3) mg/dL AST 41 (17-59) U/L ALT 20 (4-49) U/L Alkaline Phosphatase 79 (38-126) U/L Total Protein 7.5 (6.3-8.2) g/dL Albumin 3.3 L (3.5-5.0) g/dL
[2023-10-06] MEDS: PIPERACILLIN-TAZOBACTAM 3.375 GM in SODIUM CHLORIDE 0.9% 100 ML IVPB SCH (21:14)
--- NOTE | 2023-10-06 22:06 | P.CONS ---
History of Present Illness - Reason for Consult Consult date: 10/06/23 - History of Present Illness Patient is a 73-year-old male with a past medical history significant for hypertension hyperlipidemia, reflux [place] and did have cirrhosis of the liver presenting to the hospital for evaluation of worsening abdominal pain over the last 24 hours patient has been describing the pain to be sharp moderate intensity without any radiation with associated nausea and multiple of episode of vomiting patient denies having any diarrhea however constipated has been passing some flatus decreased intake patient denies having any headache or URI symptoms no chest pain or shortness of breath no significant cough or sputum production patient on presentation to the hospital was afebrile and no fever has been recorded subsequently patient was not tachycardic hypotensive or hypoxic he did have a white count of 10.7 BUN/creatinine mildly elevated liver enzymes are normal urine has been mildly positive patient did have a abdominal pelvis CT left lower lobe infiltrate indicating possible pneumonia marked ascites marked cirrhosis and splenomegaly cholelithiasis large inguinal hernias containing fluid patient is status post ultrasound-guided paracentesis unfortunately no fluid was sent for analysis patient has received ceftriaxone in the ER infectious disease was consulted regarding possible pneumonia seen on the CT and need for antibiotic therapy Past Medical History Past Medical History: GERD/Reflux, Hyperlipidemia, Hypertension, Liver Disease, Myocardial Infarction ([place]) Additional Past Medical History / Comment(s): clot in liver. esophageal varices. 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 Hernia. Last Myocardial Infarction Date:: unk History of Any Multi-Drug Resistant Organisms: None Reported Past Surgical History: Heart Catheterization With Stent Additional Past Surgical History / Comment(s): 2 heart stents, multiple large volume paracentesis procedures,left shoulder repair Past Anesthesia/Blood Transfusion Reactions: No Reported Reaction Date of Last Stent Placement:: 2002 Past Psychological History: No Psychological Hx Reported Smoking Status: Former smoker Past Alcohol Use History: None Reported Past Drug Use History: None Reported - Past Family History Mother Family Medical History: Cancer Sister(s) Family Medical History: Cancer Additional Family Medical History / Comment(s): 2 sisters-female Medications and Allergies Home Medications Medication Instructions Recorded Confirmed Type Atorvastatin [Lipitor] 40 mg PO DAILY@1300 07/12/14 10/05/23 History traMADol HCl [Ultram] 100 mg PO BID 07/12/14 10/05/23 History Aspirin [Adult Low Dose Aspirin EC] 81 mg PO DAILY@1300 08/06/20 10/05/23 History Loratadine [Claritin] 10 mg PO DAILY@1300 08/06/20 10/05/23 History atenoloL [Tenormin] 25 mg PO DAILY@1300 08/06/20 10/05/23 History Omeprazole 20 mg PO DAILY@1300 08/31/20 10/05/23 History Fluticasone Nasal [place] [Flonase 1 spr EA NOSTRIL HS 03/25/21 10/05/23 History Nasal [place]] Furosemide [Lasix] 40 mg PO DAILY@1300 07/09/21 10/05/23 History Lactulose 10 gm PO BID 12/06/21 10/05/23 History Cholecalciferol [Vitamin D3 (25 125 mcg PO TH 07/27/23 10/05/23 History Mcg = 1000 Iu)] Folic Acid 1 mg PO Q2D@1300 07/27/23 10/05/23 History Ferocon 1 cap PO DAILY@129910/05/23 10/05/23 History QUEtiapine [SEROquel] 25 mg PO HS PRN 10/05/23 10/05/23 History Spironolactone [Aldactone] 200 mg PO DAILY@1300 10/05/23 10/05/23 History Allergies Allergy/AdvReac Type Severity Reaction Status Date / Time No Known Allergies Allergy Verified 10/05/23 19:34 Physical Exam Vitals: Vital Signs Temp Pulse Pulse Resp BP BP Pulse Ox 10/06/23 14:14 77 12 121/74 99 10/06/23 14:00 78 12 123/76 100 10/06/23 13:45 80 12 130/78 100 10/06/23 13:25 82 12 130/75 98 10/06/23 08:00 98.3 F 89 16 126/61 10/06/23 06:29 82 16 108/53 97 10/06/23 03:06 90 18 107/61 100 10/05/23 22:52 77 16 119/65 99 10/05/23 20:00 80 18 108/67 98 10/05/23 15:51 97.8 F 75 18 111/54 97 Intake and Output 10/05/23 10/06/23 10/06/23 22:59 06:59 14:59 Other: Weight 76.204 kg Results CBC & Chem 7: 10/06/23 08:25 10/05/23 16:59 Labs: Abnormal Lab Results - Last 24 Hours (Table) 10/05/23 10/05/23 10/05/23 Range/Units 16:59 16:59 19:45 WBC 10.7 H (3.8-10.6) k/uL RBC 3.94 L (4.30-5.90) m/uL Hgb 8.6 L (13.0-17.5) gm/dL Hct 28.2 L (39.0-53.0) % MCV 71.6 L (80.0-100.0) fL MCH 21.7 L (25.0-35.0) pg MCHC 30.3 L (31.0-37.0) g/dL RDW 18.7 H (11.5-15.5) % Plt Count 129 L (150-450) k/uL Neutrophils # 9.5 H (1.3-7.7) k/uL Lymphocytes # 0.2 L (1.0-4.8) k/uL PT (10.0-12.5) sec INR (<1.2) Sodium 134 L (137-145) mmol/L Carbon Dioxide 20 L (22-30) mmol/L BUN 63 H (9-20) mg/dL Creatinine 1.59 H (0.66-1.25) mg/dL Glucose 108 H (74-99) mg/dL Albumin 3.3 L (3.5-5.0) g/dL Amylase 270 H (30-110) U/L Lipase 1965 H (23-300) U/L Ur Leukocyte Esterase Small H (Negative) Urine WBC 6 H (0-5) /hpf Urine WBC Clumps Occasional H (None) /hpf Urine Bacteria Many H (None) /hpf Urine Mucus Few H (None) /hpf 10/06/23 10/06/23 10/06/23 Range/Units 08:25 08:25 10:56 WBC (3.8-10.6) k/uL RBC 3.82 L (4.30-5.90) m/uL Hgb 8.3 L (13.0-17.5) gm/dL Hct 27.6 L (39.0-53.0) % MCV 72.1 L (80.0-100.0) fL MCH 21.6 L (25.0-35.0) pg MCHC 30.0 L (31.0-37.0) g/dL RDW 18.9 H (11.5-15.5) % Plt Count 115 L (150-450) k/uL Neutrophils # (1.3-7.7) k/uL Lymphocytes # 0.2 L (1.0-4.8) k/uL PT 12.9 H (10.0-12.5) sec INR 1.2 H (<1.2) Sodium (137-145) mmol/L Carbon Dioxide (22-30) mmol/L BUN (9-20) mg/dL Creatinine (0.66-1.25) mg/dL Glucose (74-99) mg/dL Albumin (3.5-5.0) g/dL Amylase (30-110) U/L Lipase 531 H (23-300) U/L Ur Leukocyte Esterase (Negative) Urine WBC (0-5) /hpf Urine WBC Clumps (None) /hpf Urine Bacteria (None) /hpf Urine Mucus (None) /hpf Assessment and Plan Plan: 1patient presented hospital abdominal pain and also have multiple episodes of vomiting now with abnormal CT concerning for left lower lobe pneumonia with question of aspiration etiology patient did have significant ascites status post paracentesis and the patient complains of abdominal pain unfortunately fluid has not been sent for analysis underlying SBP cannot be done excluded 2-we will obtain blood cultures CRP and procalcitonin 3-we will empirically start the patient on Zosyn while waiting for the workup to be completed We will follow on clinical condition and cultures to further adjust medication if needed Thank you for this consultation we will follow the patient along with you Dictation was produced using [employer] dictation software. please excuse any grammatical, word or spelling errors. Time with Patient: Greater than 30
[2023-10-07 04:17] LABS: African American GFR (CKD) 73 (>60 ml/min/1.73 sqM); Anion Gap 7 mmol/L; Blood Urea Nitrogen 40 mg/dL (9-20); Calcium 8.8 mg/dL (8.4-10.2); Carbon Dioxide 18 mmol/L (22-30); Chloride 110 mmol/L (98-107); Glucose 99 mg/dL (74-99); Lipase 129 U/L (23-300); Non-African American GFR(CKD) 63 (>60 ml/min/1.73 sqM); Potassium 5.1 mmol/L (3.5-5.1); Sodium 135 mmol/L (137-145)
[2023-10-07 04:32] LABS: Anisocytosis Slight; HCT 27.6 % (39.0-53.0); HGB 9.4 gm/dL (13.0-17.5); Hypochromasia Marked; MCH 24.6 pg (25.0-35.0); MCHC 34.2 g/dL (31.0-37.0); Mean Platelet Volume 7.1; Microcytosis Moderate; Platelet Count 124 k/uL (150-450); Poikilocytosis Slight; RBC 3.83 m/uL (4.30-5.90); RDW 18.7 % (11.5-15.5); WBC 9.7 k/uL (3.8-10.6)
[2023-10-07] MEDS: PANTOPRAZOLE 40 MG TABLET PO SCH (09:49)
--- NOTE | 2023-10-07 09:53 | P.PN ---
Subjective Progress Note Date: 10/07/23 CHIEF COMPLAINT: Abdominal pain HISTORY OF PRESENT ILLNESS: Patient is lying in bed. He appears very weak and frail. He requires assistance to stand. He does report abdominal pain. He had dry heaves per nursing staff. He is coughing up some sputum. No vomiting. Patient is status post paracentesis with 4.8 L removed. Afebrile. WBC 9.7 Hgb 8.3 up to 9.4 platelets 124 sodium is 135 potassium is 5.1 creatinine 1.15 lipase is down from 5 31-1 PHYSICAL EXAM: VITAL SIGNS: Reviewed. GENERAL: no acute distress. ABDOMEN: Soft. Nondistended. Tenderness right upper quadrant NEUROLOGIC: Awake and able to answer questions ASSESSMENT: 1. Acute gallstone pancreatitis 2. Cholelithiasis 3. History of alcohol use disorder 4. Anemia 5. History of liver cirrhosis and abdominal ascites requiring paracentesis PLAN: -Advance diet to full liquids -Continue to monitor -Consult PT OT -Recommend EGD and colonoscopy outpatient for further evaluation of anemia -Recommend outpatient laparoscopic cholecystectomy -Check iron studies Physician Milling Machinist note has been reviewed by physician. Signing provider agrees with the documented findings, assessment, and plan of care. Objective - Vital Signs Vital signs: Vital Signs Temp 98.4 F 10/07/23 06:46 Pulse 86 10/07/23 06:46 Resp 16 10/07/23 06:46 BP 108/64 10/07/23 06:46 Pulse Ox 99 10/07/23 06:46 FiO2 Intake & Output 10/06/23 10/07/23 10/07/23 18:59 06:59 18:59 Output Total 50 Balance -50 Output: Urine 50 Other: # Voids 1 - Labs CBC & Chem 7: 10/07/23 03:31 10/07/23 03:31 Labs: Abnormal Lab Results - Last 24 Hours (Table) 10/06/23 10/06/23 10/06/23 Range/Units 08:25 08:25 10:56 RBC 3.82 L (4.30-5.90) m/uL Hgb 8.3 L (13.0-17.5) gm/dL Hct 27.6 L (39.0-53.0) % MCV 72.1 L (80.0-100.0) fL MCH 21.6 L (25.0-35.0) pg MCHC 30.0 L (31.0-37.0) g/dL RDW 18.9 H (11.5-15.5) % Plt Count 115 L (150-450) k/uL Lymphocytes # 0.2 L (1.0-4.8) k/uL PT 12.9 H (10.0-12.5) sec INR 1.2 H (<1.2) Sodium (137-145) mmol/L Chloride (98-107) mmol/L Carbon Dioxide (22-30) mmol/L BUN (9-20) mg/dL C-Reactive Protein (<1.0) mg/dL Lipase 531 H (23-300) U/L Procalcitonin (0.02-0.09) ng/mL 10/06/23 10/06/23 10/07/23 Range/Units 20:54 20:54 03:31 RBC (4.30-5.90) m/uL Hgb (13.0-17.5) gm/dL Hct (39.0-53.0) % MCV (80.0-100.0) fL MCH (25.0-35.0) pg MCHC (31.0-37.0) g/dL RDW (11.5-15.5) % Plt Count (150-450) k/uL Lymphocytes # (1.0-4.8) k/uL PT (10.0-12.5) sec INR (<1.2) Sodium 135 L (137-145) mmol/L Chloride 110 H (98-107) mmol/L Carbon Dioxide 18 L (22-30) mmol/L BUN 40 H (9-20) mg/dL C-Reactive Protein 5.3 H (<1.0) mg/dL Lipase (23-300) U/L Procalcitonin 0.33 H (0.02-0.09) ng/mL 10/07/23 Range/Units 03:31 RBC 3.83 L (4.30-5.90) m/uL Hgb 9.4 L (13.0-17.5) gm/dL Hct 27.6 L (39.0-53.0) % MCV 72.0 L (80.0-100.0) fL MCH 24.6 L (25.0-35.0) pg MCHC (31.0-37.0) g/dL RDW 18.7 H (11.5-15.5) % Plt Count 124 L (150-450) k/uL Lymphocytes # (1.0-4.8) k/uL PT (10.0-12.5) sec INR (<1.2) Sodium (137-145) mmol/L Chloride (98-107) mmol/L Carbon Dioxide (22-30) mmol/L BUN (9-20) mg/dL C-Reactive Protein (<1.0) mg/dL Lipase (23-300) U/L Procalcitonin (0.02-0.09) ng/mL
[2023-10-07 19:57] LABS: % Iron Saturation 4.27 (15.00-50.00)
--- NOTE | 2023-10-07 20:53 | P.HPIM ---
History of Present Illness H&P Date: 10/06/23 Chief Complaint: Abdominal pain This is a 73-year-old gentleman with past medical history of alcoholic cirrhosis, esophageal varices, hernia surgery presented to the ER with c omplaints of worsening abdominal pain, distention, positive nausea and vomiting states he consumed a burger on Thursday night and developed epigastric and bilateral inguinal hernia pain . Reports both bowel movements and constipation. Passing flatus. Recent EGD performed on 07/28/[address] Elvia Carlson reported large mid and distal esophagus with litigation, moderate portal hypertensive gastropathy with repeat EGD in [address] scan abdomen pelvis had reported left lower lobe infiltrate, possible pneumonia ,marked ascites, marked cirrhosis and splenomegaly. Multiple gallstones, no biliary ductal dilatation, large bilateral inguinal hernias containing ascitic fluid. On admission, lipase 1965. BUN 63, creatinine 1.59. Afebrile, WBC 10.7 down to 8.7. Hemoglobin 8.6 lakelets 129, INR 1.2. Sodium 134. UA reported many bacteria, occasional WBC clumps, 6 WBCs, small leukocytes, positive nitrates. Received ceftriaxone in the ER Review of Systems ROS Statement: Those systems with pertinent positive or pertinent negative responses have been documented in the HPI. ROS Other: All systems not noted in ROS Statement are negative. Past Medical History Past Medical History: GERD/Reflux, Hyperlipidemia, Hypertension, Liver Disease, Myocardial Infarction (SD) Additional Past Medical History / Comment(s): clot in liver. esophageal varices. 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 Hernia. Last Myocardial Infarction Date:: unk History of Any Multi-Drug Resistant Organisms: None Reported Past Surgical History: Heart Catheterization With Stent Additional Past Surgical History / Comment(s): 2 heart stents, multiple large volume paracentesis procedures,left shoulder repair Past Anesthesia/Blood Transfusion Reactions: No Reported Reaction Date of Last Stent Placement:: 2002 Past Psychological History: No Psychological Hx Reported Smoking Status: Former smoker Past Alcohol Use History: None Reported Past Drug Use History: None Reported - Past Family History Mother Family Medical History: Cancer Sister(s) Family Medical History: Cancer Additional Family Medical History / Comment(s): 2 sisters-female Medications and Allergies Home Medications Medication Instructions Recorded Confirmed Type Atorvastatin [Lipitor] 40 mg PO DAILY@1300 07/12/14 10/05/23 History traMADol HCl [Ultram] 100 mg PO BID 07/12/14 10/05/23 History Aspirin [Adult Low Dose Aspirin EC] 81 mg PO DAILY@1300 08/06/20 10/05/23 History Loratadine [Claritin] 10 mg PO DAILY@1300 08/06/20 10/05/23 History atenoloL [Tenormin] 25 mg PO DAILY@1300 08/06/20 10/05/23 History Omeprazole 20 mg PO DAILY@1300 08/31/20 10/05/23 History Fluticasone Nasal [place] [Flonase 1 spr EA NOSTRIL HS 03/25/21 10/05/23 History Nasal [place]] Furosemide [Lasix] 40 mg PO DAILY@1300 07/09/21 10/05/23 History Lactulose 10 gm PO BID 12/06/21 10/05/23 History Cholecalciferol [Vitamin D3 (25 125 mcg PO TH 07/27/23 10/05/23 History Mcg = 1000 Iu)] Folic Acid 1 mg PO Q2D@129907/27/23 10/05/23 History Ferocon 1 cap PO DAILY@129910/05/23 10/05/23 History QUEtiapine [SEROquel] 25 mg PO HS PRN 10/05/23 10/05/23 History Spironolactone [Aldactone] 200 mg PO DAILY@129910/05/23 10/05/23 History Allergies Allergy/AdvReac Type Severity Reaction Status Date / Time No Known Allergies Allergy Verified 10/05/23 19:34 Physical Exam Vitals: Vital Signs Temp Pulse Pulse Resp BP BP Pulse Ox 10/06/23 14:25 84 12 121/74 98 10/06/23 14:14 77 12 121/74 99 10/06/23 14:00 78 12 123/76 100 10/06/23 13:45 80 12 130/78 100 10/06/23 13:25 82 12 130/75 98 10/06/23 08:00 98.3 F 89 16 126/61 10/06/23 06:29 82 16 108/53 97 10/06/23 03:06 90 18 107/61 100 10/05/23 22:52 77 16 119/65 99 10/05/23 20:00 80 18 108/67 98 10/05/23 15:51 97.8 F 75 18 111/54 97 Intake and Output 10/05/23 10/06/23 10/06/23 22:59 06:59 14:59 Other: Weight 76.204 kg PHYSICAL EXAM: VITAL SIGNS: [As above] GENERAL: Alert and oriented x 3,NAD HEENT: Normocephalic, conjunctivae normal. eyes normal. NECK: No JVD. No thyroid enlargement. No LNs CARDIOVASCULAR: S1, S2 regular.. No murmur RESPIRATION: Breath sounds diminished in the bases. No rhonchi or crackles. No bronchial breathing. ABDOMEN: Soft, distended, diffuse tenderness ,positive ascites, no guarding. LEGS: No edema. no swelling PSYCHIATRY: Alert and oriented X3, mood and affect normal. NERVOUS SYSTEM: Cranial N 2-12 grossly normal. No focal deficits. Strength and sensation grossly intact. Skin: Warm and dry, no rash. Results CBC & Chem 7: 10/07/23 03:31 10/07/23 03:31 Labs: Abnormal Lab Results - Last 24 Hours (Table) 10/05/23 10/05/23 10/05/23 Range/Units 16:59 16:59 19:45 WBC 10.7 H (3.8-10.6) k/uL RBC 3.94 L (4.30-5.90) m/uL Hgb 8.6 L (13.0-17.5) gm/dL Hct 28.2 L (39.0-53.0) % MCV 71.6 L (80.0-100.0) fL MCH 21.7 L (25.0-35.0) pg MCHC 30.3 L (31.0-37.0) g/dL RDW 18.7 H (11.5-15.5) % Plt Count 129 L (150-450) k/uL Neutrophils # 9.5 H (1.3-7.7) k/uL Lymphocytes # 0.2 L (1.0-4.8) k/uL PT (10.0-12.5) sec INR (<1.2) Sodium 134 L (137-145) mmol/L Carbon Dioxide 20 L (22-30) mmol/L BUN 63 H (9-20) mg/dL Creatinine 1.59 H (0.66-1.25) mg/dL Glucose 108 H (74-99) mg/dL Albumin 3.3 L (3.5-5.0) g/dL Amylase 270 H (30-110) U/L Lipase 1965 H (23-300) U/L Ur Leukocyte Esterase Small H (Negative) Urine WBC 6 H (0-5) /hpf Urine WBC Clumps Occasional H (None) /hpf Urine Bacteria Many H (None) /hpf Urine Mucus Few H (None) /hpf 10/06/23 10/06/23 10/06/23 Range/Units 08:25 08:25 10:56 WBC (3.8-10.6) k/uL RBC 3.82 L (4.30-5.90) m/uL Hgb 8.3 L (13.0-17.5) gm/dL Hct 27.6 L (39.0-53.0) % MCV 72.1 L (80.0-100.0) fL MCH 21.6 L (25.0-35.0) pg MCHC 30.0 L (31.0-37.0) g/dL RDW 18.9 H (11.5-15.5) % Plt Count 115 L (150-450) k/uL Neutrophils # (1.3-7.7) k/uL Lymphocytes # 0.2 L (1.0-4.8) k/uL PT 12.9 H (10.0-12.5) sec INR 1.2 H (<1.2) Sodium (137-145) mmol/L Carbon Dioxide (22-30) mmol/L BUN (9-20) mg/dL Creatinine (0.66-1.25) mg/dL Glucose (74-99) mg/dL Albumin (3.5-5.0) g/dL Amylase (30-110) U/L Lipase 531 H (23-300) U/L Ur Leukocyte Esterase (Negative) Urine WBC (0-5) /hpf Urine WBC Clumps (None) /hpf Urine Bacteria (None) /hpf Urine Mucus (None) /hpf Assessment and Plan Assessment: Acute pancreatitis Left lower lobe infiltrate reported per CT, possible left lower lobe pneumonia, possible aspiration Ascites in a patient with history of alcoholic cirrhosis, possible SBP. Splenomegaly Cholelithiasis reported on CT Left lower lobe infiltrate, possible pneumonia Plan: Continue on current medication regimen ,monitoring and symptomatic kathy tment.Procalcitonin, CRP and blood cultures ordered. Bowel rest. IV fluid hydration. Repeat lipase ordered. IR consulted for therapeutic paracentesis. Infectious disease and general surgery consulted. Antibiotics as per infectious disease. The impression and plan of care has been dictated as directed. : I performed a history and examination of this patient, discussed the same with the dictator. I agree with the dictator's note ,documented as a scribe. Any additional findings or plans will be noted.
[2023-10-08] MEDS: QUEtiapine 25 MG TAB PO PRN (00:23)
[2023-10-08 09:03] LABS: BUN/Creat Ratio 26.25 Ratio (12.00-20.00); Calcium 8.7 mg/dL (8.7-10.3); Carbon Dioxide 19.5 mmol/L (21.6-31.8); Chloride 105 mmol/L (96-109); Glucose 115 mg/dL (70-110); Potassium 5.3 mmol/L (3.5-5.5); Sodium 135 mmol/L (135-145)
[2023-10-08 09:21] LABS: HCT 31.1 % (39.6-50.0); HGB 9.4 g/dL (13.0-17.0); MCH 21.3 pg (27.0-32.0); MCHC 30.2 g/dL (32.0-37.0); MCV 70.4 FL (80.0-97.0); Mean Platelet Volume 10.8 FL (9.5-12.2); NRBC Per 100 WBC 0 X 10*3/uL (0.00-0.01); Platelet Count 155 X 10*3/uL (140-440); RBC 4.42 X 10*6/uL (4.40-5.60); RDW 20.6 % (11.5-14.5); WBC 10.23 X 10*3/uL (4.50-10.00)
[2023-10-08 09:53] LABS: Acanthocytes 2+; Basophils # (A) 0.05 X 10*3/uL (0.00-0.10); Basophils % (A) 0.5 %; Eosinophils # (A) 0.02 X 10*3/uL (0.04-0.35); Eosinophils % (A) 0.2 %; Hypochromasia (M) 2+; Lymphocytes # (A) 0.32 X 10*3/uL (0.90-5.00); Lymphocytes % (A) 3.1 %; Microcytosis (M) 3+; Monocytes # (A) 1.05 X 10*3/uL (0.20-1.00); Monocytes % (A) 10.3 %; Neutrophils # (A) 8.74 X 10*3/uL (1.80-7.70); Neutrophils % (A) 85.4 %; Schistocytes 1+
--- NOTE | 2023-10-08 10:49 | P.PN ---
Subjective Progress Note Date: 10/08/23 CHIEF COMPLAINT: Abdominal pain HISTORY OF PRESENT ILLNESS: Patient complains of diffuse abdominal pain. He does report his pain is better than on admission. He is tolerating liquids. Denies any nausea or vomiting. He does cough up phlegm. Afebrile. WBC 10.23 Hgb 9.4 creatinine 1.6. Patient reports that he is not actively drinking. Iron level low at 15. Medicine service planning discharging patient today PHYSICAL EXAM: VITAL SIGNS: Reviewed. GENERAL: no acute distress. ABDOMEN: Soft. Nondistended. Mild diffuse tenderness NEUROLOGIC: Awake and able to answer questions ASSESSMENT: 1. Acute gallstone pancreatitis 2. Cholelithiasis 3. History of alcohol use disorder 4. Anemia with evidence of iron deficiency 5. History of liver cirrhosis and abdominal ascites requiring paracentesis PLAN: -Advance diet to regular -Recommend EGD and colonoscopy outpatient for further evaluation of anemia -Recommend outpatient laparoscopic cholecystectomy -Recommend to continue iron supplement Physician Fruit Grader note has been reviewed by physician. Signing provider agrees with the documented findings, assessment, and plan of care. Objective - Vital Signs Vital signs: Vital Signs Temp 97.6 F 10/08/23 07:52 Pulse 90 10/08/23 07:52 Resp 19 10/08/23 07:52 BP 94/63 10/08/23 07:52 Pulse Ox 100 10/08/23 07:52 FiO2 Intake & Output 10/07/23 10/08/23 10/08/23 18:59 06:59 18:59 Intake Total 237 Output Total 175 Balance 62 Weight 76.204 kg Intake: Oral 237 Output: Urine 175 Other: Voiding Method Diaper # Voids 1 3 - Labs CBC & Chem 7: 10/08/23 02:55 10/08/23 02:55 Labs: Abnormal Lab Results - Last 24 Hours (Table) 10/07/23 10/08/23 10/08/23 Range/Units 03:31 02:55 02:55 WBC 10.23 H (4.50-10.00) X 10*3/uL Hgb 9.4 L (13.0-17.0) g/dL Hct 31.1 L (39.6-50.0) % MCV 70.4 L (80.0-97.0) FL MCH 21.3 L (27.0-32.0) pg MCHC 30.2 L (32.0-37.0) g/dL RDW 20.6 H (11.5-14.5) % Immature Gran # 0.05 H (0.00-0.04) X 10*3/uL Neutrophils # 8.74 H (1.80-7.70) X 10*3/uL Lymphocytes # 0.32 L (0.90-5.00) X 10*3/uL Monocytes # 1.05 H (0.20-1.00) X 10*3/uL Eosinophils # 0.02 L (0.04-0.35) X 10*3/uL Hypochromasia (manual) 2+ A Microcytosis (manual) 3+ A Acanthocytes (Spur) 2+ A Schistocytes 1+ A Carbon Dioxide 19.5 L (21.6-31.8) mmol/L BUN 42.0 H (9.0-27.0) mg/dL Creatinine 1.6 H (0.6-1.5) mg/dL Est GFR (CKD-EPI) 45 L (>=60) BUN/Creatinine Ratio 26.25 H (12.00-20.00) Ratio Glucose 115 H (70-110) mg/dL Iron 15 L (65-175) UG/DL % Saturation 4.27 L (15.00-50.00) Microbiology - Last 24 Hours (Table) 10/06/23 20:54 Blood Culture - Preliminary Blood
--- NOTE | 2023-10-08 13:15 | P.PN ---
Subjective Progress Note Date: 10/07/23 Principal diagnosis: Reason for follow-up is pneumonia Patient is a 73-year-old male with a past medical history significant for hypertension hyperlipidemia, reflux MO and did have cirrhosis of the liver presenting to the hospital for evaluation of worsening abdominal pain and vomiting patient did have CT abdominal pelvis suggestive of ascites and did have left lower lobe infiltrate concerning for pneumonia question of possible aspiration. On today's evaluation that is 10/07/2023, patient has been afebrile, patient is breathing comfortably and is currently on room air, patient denies having any significant cough no chest pain shortness of breath, patient has been complaining of abdominal pain and some nausea no diarrhea. Patient white count is 9.7 creatinine is 1.15 CRP is 5.3 Pro-Eugenio 0.33 blood cultures pending Objective - Vital Signs Vital signs: Vital Signs Temp 98.3 F 10/07/23 13:22 Pulse 94 10/07/23 13:22 Resp 20 10/07/23 13:22 BP 96/63 10/07/23 13:22 Pulse Ox 99 10/07/23 13:22 FiO2 Intake & Output 10/06/23 10/07/23 10/07/23 18:59 06:59 18:59 Intake Total 237 Output Total 50 175 Balance -50 62 Weight 76.204 kg Intake: Oral 237 Output: Urine 50 175 Other: # Voids 1 1 - Exam GENERAL DESCRIPTION: An elderly male lying in bed in no distress RESPIRATORY SYSTEM: Unlabored breathing , decreased breath sounds at bases HEART: S1 S2 regular rate and rhythm , ABDOMEN: Soft , mild tenderness EXTREMITIES: No edema feet - Labs CBC & Chem 7: 10/08/23 02:55 10/08/23 02:55 Labs: Abnormal Lab Results - Last 24 Hours (Table) 10/06/23 10/06/23 10/07/23 Range/Units 20:54 20:54 03:31 RBC (4.30-5.90) m/uL Hgb (13.0-17.5) gm/dL Hct (39.0-53.0) % MCV (80.0-100.0) fL MCH (25.0-35.0) pg RDW (11.5-15.5) % Plt Count (150-450) k/uL Sodium 135 L (137-145) mmol/L Chloride 110 H (98-107) mmol/L Carbon Dioxide 18 L (22-30) mmol/L BUN 40 H (9-20) mg/dL C-Reactive Protein 5.3 H (<1.0) mg/dL Procalcitonin 0.33 H (0.02-0.09) ng/mL 10/07/23 Range/Units 03:31 RBC 3.83 L (4.30-5.90) m/uL Hgb 9.4 L (13.0-17.5) gm/dL Hct 27.6 L (39.0-53.0) % MCV 72.0 L (80.0-100.0) fL MCH 24.6 L (25.0-35.0) pg RDW 18.7 H (11.5-15.5) % Plt Count 124 L (150-450) k/uL Sodium (137-145) mmol/L Chloride (98-107) mmol/L Carbon Dioxide (22-30) mmol/L BUN (9-20) mg/dL C-Reactive Protein (<1.0) mg/dL Procalcitonin (0.02-0.09) ng/mL Assessment and Plan (1) Aspiration pneumonia Current Visit: Yes Status: Acute Code(s): J69.0 - PNEUMONITIS DUE TO INHALATION OF FOOD AND VOMIT SNOMED Code(s): 659123738 Plan: 1patient presented hospital abdominal pain and also have multiple episodes of vomiting now with abnormal CT concerning for left lower lobe pneumonia with question of aspiration etiology patient did have significant ascites status post paracentesis and the patient complains of abdominal pain unfortunately fluid has not been sent for analysis underlying SBP cannot be done excluded 2-patient blood culture currently pending CRP and procalcitonin, mildly elevated 3-patient to continue with Zosyn while waiting for the workup to be completed Dictation was produced using [employer] dictation software. please excuse any grammatical, word or spelling errors. Time with Patient: Less than 30
--- NOTE | 2023-10-08 13:16 | P.PN ---
Subjective Progress Note Date: 10/08/23 Principal diagnosis: Reason for follow-up is pneumonia Patient is a 73-year-old male with a past medical history significant for hypertension hyperlipidemia, reflux PR and did have cirrhosis of the liver presenting to the hospital for evaluation of worsening abdominal pain and vomiting patient did have CT abdominal pelvis suggestive of ascites and did have left lower lobe infiltrate concerning for pneumonia question of possible aspiration. On today's evaluation that is 10/08/2023,the patient denies any fever or any chills, patient is breathing comfortably on room air, the patient denies chest pain shortness of breath did have occasional cough still complaining of abdominal pain about the same nausea but no vomiting no diarrhea has been reported. The patient white count is down to 10.23 creatinine is 1.6 blood cultures are pending Objective - Vital Signs Vital signs: Vital Signs Temp 97.6 F 10/08/23 07:52 Pulse 90 10/08/23 07:52 Resp 19 10/08/23 07:52 BP 94/63 10/08/23 07:52 Pulse Ox 100 10/08/23 07:52 FiO2 Intake & Output 10/07/23 10/08/23 10/08/23 18:59 06:59 18:59 Intake Total 237 Output Total 175 Balance 62 Weight 76.204 kg Intake: Oral 237 Output: Urine 175 Other: Voiding Method Diaper # Voids 1 3 - Exam GENERAL DESCRIPTION: An elderly male lying in bed in no distress RESPIRATORY SYSTEM: Unlabored breathing , decreased breath sounds at bases HEART: S1 S2 regular rate and rhythm , ABDOMEN: Soft , mild tenderness EXTREMITIES: No edema feet - Labs CBC & Chem 7: 10/08/23 02:55 10/08/23 02:55 Labs: Abnormal Lab Results - Last 24 Hours (Table) 10/07/23 10/08/23 10/08/23 Range/Units 03:31 02:55 02:55 WBC 10.23 H (4.50-10.00) X 10*3/uL Hgb 9.4 L (13.0-17.0) g/dL Hct 31.1 L (39.6-50.0) % MCV 70.4 L (80.0-97.0) FL MCH 21.3 L (27.0-32.0) pg MCHC 30.2 L (32.0-37.0) g/dL RDW 20.6 H (11.5-14.5) % Immature Gran # 0.05 H (0.00-0.04) X 10*3/uL Neutrophils # 8.74 H (1.80-7.70) X 10*3/uL Lymphocytes # 0.32 L (0.90-5.00) X 10*3/uL Monocytes # 1.05 H (0.20-1.00) X 10*3/uL Eosinophils # 0.02 L (0.04-0.35) X 10*3/uL Hypochromasia (manual) 2+ A Microcytosis (manual) 3+ A Acanthocytes (Spur) 2+ A Schistocytes 1+ A Carbon Dioxide 19.5 L (21.6-31.8) mmol/L BUN 42.0 H (9.0-27.0) mg/dL Creatinine 1.6 H (0.6-1.5) mg/dL Est GFR (CKD-EPI) 45 L (>=60) BUN/Creatinine Ratio 26.25 H (12.00-20.00) Ratio Glucose 115 H (70-110) mg/dL Iron 15 L (65-175) UG/DL % Saturation 4.27 L (15.00-50.00) Microbiology - Last 24 Hours (Table) 10/06/23 20:54 Blood Culture - Preliminary Blood Assessment and Plan (1) Aspiration pneumonia Current Visit: Yes Status: Acute Code(s): J69.0 - PNEUMONITIS DUE TO INHALATION OF FOOD AND VOMIT SNOMED Code(s): 616797648 Plan: 1patient presented hospital abdominal pain and also have multiple episodes of vomiting now with abnormal CT concerning for left lower lobe pneumonia with question of aspiration etiology patient did have significant ascites status post paracentesis and the patient complains of abdominal pain unfortunately fluid has not been sent for analysis underlying SBP cannot be done excluded 2-patient blood culture currently pending patient did have elevated CRP and a procalcitonin 0.33 3-nursing staff has been advised to obtain a sputum for now covered with Zosyn and adjust antibiotic on the basis of culture Dictation was produced using [employer] software. please excuse any grammatical, word or spelling errors. Time with Patient: Less than 30
--- NOTE | 2023-10-08 15:26 | P.PN ---
Subjective Progress Note Date: 10/07/23 10/06/23 This is a 73-year-old gentleman with past medical history of alcoholic cirrhosis, esophageal varices, hernia surgery presented to the ER with complaints of worsening abdominal pain, distention, positive nausea and vomiting states he consumed a burger on Thursday night and developed epigastric and bilateral inguinal hernia pain . Reports both bowel movements and constipation. Passing flatus. Recent EGD performed on 07/28/[address] Elvia Carlson reported large mid and distal esophagus with litigation, moderate portal hypertensive gastropathy with repeat EGD in [address] scan abdomen pelvis had reported left lower lobe infiltrate, possible pneumonia ,marked ascites, marked cirrhosis and splenomegaly. Multiple gallstones, no biliary ductal dilatation, large bilateral inguinal hernias containing ascitic fluid. On admission, lipase 1965. BUN 63, creatinine 1.59. Afebrile, WBC 10.7 down to 8.7. Hemoglobin 8.6 lakelets 129, INR 1.2. Sodium 134. UA reported many bacteria, occasional WBC clumps, 6 WBCs, small leukocytes, positive nitrates. Received ceftriaxone in the ER 10/07/2023 lipase significantly decreased to 129. continues on Zosyn, elevated CRP 5.3 and procalcitonin 0.33. Afebrile, normal WBC. blood cultures pending. Denies cough. Potassium 5.1, renal function improving, BUN 40, creatinine 1.15. Evaluated by general surgery;scheduled for diagnostic paracentesis with interventional radiology today and EGD with colonoscopy tomorrow. Reports nausea, ongoing abdominal pain, more so at the top as well as bilateral inguinal hernias. Hemoglobin increased to 9.4, platelets 124. Objective - Vital Signs Vital signs: Vital Signs Temp 97.6 F 10/08/23 07:52 Pulse 90 10/08/23 07:52 Resp 19 10/08/23 07:52 BP 94/63 10/08/23 07:52 Pulse Ox 100 10/08/23 07:52 FiO2 Intake & Output 10/07/23 10/08/23 10/08/23 18:59 06:59 18:59 Intake Total 237 Output Total 175 Balance 62 Weight 76.204 kg Intake: Oral 237 Output: Urine 175 Other: Voiding Method Diaper # Voids 1 3 - Exam PHYSICAL EXAM: VITAL SIGNS: [As above] GENERAL: Alert and oriented x 3,NAD HEENT: Normocephalic, conjunctivae normal. eyes normal. NECK: Supple, no JVD. CARDIOVASCULAR: S1, S2 regular.. No murmur RESPIRATION: Breath sounds diminished in the bases. ABDOMEN: Soft, distended, diffuse tenderness ,positive ascites, no guarding. LEGS: No edema. no swelling PSYCHIATRY: Alert and oriented X3, mood and affect normal. NERVOUS SYSTEM: Cranial N 2-12 grossly normal. No focal deficits. Skin: Warm and dry, no rash. - Labs CBC & Chem 7: 10/08/23 02:55 10/08/23 02:55 Labs: Abnormal Lab Results - Last 24 Hours (Table) 10/07/23 10/08/23 10/08/23 Range/Units 03:31 02:55 02:55 WBC 10.23 H (4.50-10.00) X 10*3/uL Hgb 9.4 L (13.0-17.0) g/dL Hct 31.1 L (39.6-50.0) % MCV 70.4 L (80.0-97.0) FL MCH 21.3 L (27.0-32.0) pg MCHC 30.2 L (32.0-37.0) g/dL RDW 20.6 H (11.5-14.5) % Immature Gran # 0.05 H (0.00-0.04) X 10*3/uL Neutrophils # 8.74 H (1.80-7.70) X 10*3/uL Lymphocytes # 0.32 L (0.90-5.00) X 10*3/uL Monocytes # 1.05 H (0.20-1.00) X 10*3/uL Eosinophils # 0.02 L (0.04-0.35) X 10*3/uL Hypochromasia (manual) 2+ A Microcytosis (manual) 3+ A Acanthocytes (Spur) 2+ A Schistocytes 1+ A Carbon Dioxide 19.5 L (21.6-31.8) mmol/L BUN 42.0 H (9.0-27.0) mg/dL Creatinine 1.6 H (0.6-1.5) mg/dL Est GFR (CKD-EPI) 45 L (>=60) BUN/Creatinine Ratio 26.25 H (12.00-20.00) Ratio Glucose 115 H (70-110) mg/dL Iron 15 L (65-175) UG/DL % Saturation 4.27 L (15.00-50.00) Microbiology - Last 24 Hours (Table) 10/06/23 20:54 Blood Culture - Preliminary Blood Assessment and Plan Assessment: Acute gallstone pancreatitis, improving Cholelithiasis reported on CT Possible left lower lobe aspiration pneumonia, suggested per CT Ascites in a patient with history of alcoholic cirrhosis, possible SBP, paracentesis pending Elevated CRP and procalcitonin Splenomegaly Plan: Continue on current medication regimen ,monitoring and symptomatic treatment.Bowel rest. IV fluid hydration. diagnostic/therapeutic paracentesis with IR pending. Antibiotics as per infectious disease. EGD and colonoscopy tomorrow with general surgery. The impression and plan of care has been dictated as directed. : I performed a history and examination of this patient, discussed the same with the dictator. I agree with the dictator's note ,documented as a scribe. Any additional findings or plans will be noted.
[2023-10-08] MEDS ORDERED: HYDROCORTISONE 1% CREAM 30 GM TUBE TOPICAL PRN (17:46)
--- NOTE | 2023-10-08 19:00 | P.PN ---
Subjective Progress Note Date: 10/08/23 10/06/23 This is a 73-year-old gentleman with past medical history of alcoholic cirrhosis, esophageal varices, hernia surgery presented to the ER with complaints of worsening abdominal pain, distention, positive nausea and vomiting states he consumed a burger on Thursday night and developed epigastric and bilateral inguinal hernia pain . Reports both bowel movements and constipation. Passing flatus. Recent EGD performed on 07/28/[address] Elvia Carlson reported large mid and distal esophagus with litigation, moderate portal hypertensive gastropathy with repeat EGD in [address] scan abdomen pelvis had reported left lower lobe infiltrate, possible pneumonia ,marked ascites, marked cirrhosis and splenomegaly. Multiple gallstones, no biliary ductal dilatation, large bilateral inguinal hernias containing ascitic fluid. On admission, lipase 1965. BUN 63, creatinine 1.59. Afebrile, WBC 10.7 down to 8.7. Hemoglobin 8.6 lakelets 129, INR 1.2. Sodium 134. UA reported many bacteria, occasional WBC clumps, 6 WBCs, small leukocytes, positive nitrates. Received ceftriaxone in the ER 10/07/2023 lipase significantly decreased to 129. continues on Zosyn, elevated CRP 5.3 and procalcitonin 0.33. Afebrile, normal WBC. blood cultures pending. Denies cough. Potassium 5.1, renal function improving, BUN 40, creatinine 1.15. Evaluated by general surgery;scheduled for diagnostic paracentesis with interventional radiology today and EGD with colonoscopy tomorrow. Reports nausea, ongoing abdominal pain, more so at the top as well as bilateral inguinal hernias. Hemoglobin increased to 9.4, platelets 124. 10/08/2023 status post paracentesis, 4.8 L. Unfortunately fluid culture/analysis was not performed. General surgery is canceled inpatient EGD with colonoscopy, recommending outpatient endoscopy. Denies current alcohol use .poor diet intake of clear liquid diet , denies nausea or vomiting .renal function worsening, creatinine up to 1.6. Sputum culture collected, pending. Blood cultures pending. Continues on Zosyn as per ID. Afebrile, WBC increased to 10.23. continues to report abdominal pain and bilateral inguinal hernia pain. Hemoglobin remains at 9.4, platelets 155. denies chest pain, palpitations or increased shortness of breath. Maintaining O2 sats in the high 90s on room air. Objective - Vital Signs Vital signs: Vital Signs Temp 97.6 F 10/08/23 07:52 Pulse 90 10/08/23 07:52 Resp 19 10/08/23 07:52 BP 94/63 10/08/23 07:52 Pulse Ox 100 10/08/23 07:52 FiO2 Intake & Output 10/07/23 10/08/23 10/08/23 18:59 06:59 18:59 Intake Total 237 Output Total 175 Balance 62 Weight 76.204 kg Intake: Oral 237 Output: Urine 175 Other: Voiding Method Diaper # Voids 1 3 - Labs CBC & Chem 7: 10/08/23 02:55 10/08/23 02:55 Labs: Abnormal Lab Results - Last 24 Hours (Table) 10/07/23 10/08/23 10/08/23 Range/Units 03:31 02:55 02:55 WBC 10.23 H (4.50-10.00) X 10*3/uL Hgb 9.4 L (13.0-17.0) g/dL Hct 31.1 L (39.6-50.0) % MCV 70.4 L (80.0-97.0) FL MCH 21.3 L (27.0-32.0) pg MCHC 30.2 L (32.0-37.0) g/dL RDW 20.6 H (11.5-14.5) % Immature Gran # 0.05 H (0.00-0.04) X 10*3/uL Neutrophils # 8.74 H (1.80-7.70) X 10*3/uL Lymphocytes # 0.32 L (0.90-5.00) X 10*3/uL Monocytes # 1.05 H (0.20-1.00) X 10*3/uL Eosinophils # 0.02 L (0.04-0.35) X 10*3/uL Hypochromasia (manual) 2+ A Microcytosis (manual) 3+ A Acanthocytes (Spur) 2+ A Schistocytes 1+ A Carbon Dioxide 19.5 L (21.6-31.8) mmol/L BUN 42.0 H (9.0-27.0) mg/dL Creatinine 1.6 H (0.6-1.5) mg/dL Est GFR (CKD-EPI) 45 L (>=60) BUN/Creatinine Ratio 26.25 H (12.00-20.00) Ratio Glucose 115 H (70-110) mg/dL Iron 15 L (65-175) UG/DL % Saturation 4.27 L (15.00-50.00) Microbiology - Last 24 Hours (Table) 10/06/23 20:54 Blood Culture - Preliminary Blood Assessment and Plan Assessment: Acute gallstone pancreatitis Cholelithiasis reported on CT Possible left lower lobe aspiration pneumonia, suggested per CT Ascites in a patient with history of alcoholic cirrhosis, possible SBP, paracentesis pending Elevated CRP and procalcitonin Splenomegaly Anemia, further follow-up outpatient with Dr. Elvia Carlson whom patient follows with. Plan: Continue on current medication regimen ,monitoring and symptomatic treatment. Hold discharge, patient is weak, renal function worsening with mild increase in WBC. Close monitoring of renal function, WBC with repeat labs ordered for a.m. Sputum and blood cultures finalizing. Diet advancement as per general surgery. discussed with RN to have PT reevaluate regarding potential subacute rehab., [facility] case management regarding potential subacute rehab. Discharge planning in progress for potentially tomorrow pending patient tolerates diet advancement, renal function stabilizes, cultures finalize, with final DC recommendations and clearance per infectious disease. The impression and plan of care has been dictated as directed. : I performed a history and examination of this patient, discussed the same with the dictator. I agree with the dictator's note ,documented as a scribe. Any additional findings or plans will be noted.
[2023-10-09] MEDS: METOCLOPRAMIDE 5 MG/ML 2 ML VIAL IVP PRN (03:26)
[2023-10-09] MEDS ORDERED: IPRATROPIUM-ALBUTEROL 3 ML NEB INHALATION PRN (08:58)
[2023-10-09 09:10] LABS: BUN/Creat Ratio 19.19 Ratio (12.00-20.00); Blood Urea Nitrogen 51.8 mg/dL (9.0-27.0); Calcium 9.9 mg/dL (8.7-10.3); Carbon Dioxide 19.2 mmol/L (21.6-31.8); Chloride 100 mmol/L (96-109); Glucose 126 mg/dL (70-110); Potassium 5.5 mmol/L (3.5-5.5); Sodium 134 mmol/L (135-145)
[2023-10-09 09:13] LABS: Basophils # (A) 0.06 X 10*3/uL (0.00-0.10); Basophils % (A) 0.4 %; Eosinophils # (A) 0.01 X 10*3/uL (0.04-0.35); Eosinophils % (A) 0.1 %; HCT 33.7 % (39.6-50.0); Lymphocytes # (A) 0.22 X 10*3/uL (0.90-5.00); Lymphocytes % (A) 1.4 %; MCH 20.8 pg (27.0-32.0); MCHC 29.7 g/dL (32.0-37.0); MCV 70.2 FL (80.0-97.0); Mean Platelet Volume 10.2 FL (9.5-12.2); Monocytes # (A) 1.27 X 10*3/uL (0.20-1.00); NRBC Per 100 WBC 0 X 10*3/uL (0.00-0.01); Neutrophils # (A) 14.17 X 10*3/uL (1.80-7.70); Neutrophils % (A) 89.5 %; Platelet Count 224 X 10*3/uL (140-440); RDW 20.6 % (11.5-14.5); WBC 15.83 X 10*3/uL (4.50-10.00)
[2023-10-09] MEDS: LACTOBACILLUS ACIDOPHILUS/PECT 1 EACH CAPSULE PO SCH (09:25)
--- NOTE | 2023-10-09 09:52 | P.PN ---
Subjective Progress Note Date: 10/09/23 10/06/23 This is a 73-year-old gentleman with past medical history of alcoholic cirrhosis, esophageal varices, hernia surgery presented to the ER with complaints of worsening abdominal pain, distention, positive nausea and vomiting states he consumed a burger on Thursday night and developed epigastric and bilateral inguinal hernia pain . Reports both bowel movements and constipation. Passing flatus. Recent EGD performed on 07/28/[address] Elvia Carlson reported large mid and distal esophagus with litigation, moderate portal hypertensive gastropathy with repeat EGD in [address] scan abdomen pelvis had reported left lower lobe infiltrate, possible pneumonia ,marked ascites, marked cirrhosis and splenomegaly. Multiple gallstones, no biliary ductal dilatation, large bilateral inguinal hernias containing ascitic fluid. On admission, lipase 1965. BUN 63, creatinine 1.59. Afebrile, WBC 10.7 down to 8.7. Hemoglobin 8.6 lakelets 129, INR 1.2. Sodium 134. UA reported many bacteria, occasional WBC clumps, 6 WBCs, small leukocytes, positive nitrates. Received ceftriaxone in the ER 10/07/2023 lipase significantly decreased to 129. continues on Zosyn, elevated CRP 5.3 and procalcitonin 0.33. Afebrile, normal WBC. blood cultures pending. Denies cough. Potassium 5.1, renal function improving, BUN 40, creatinine 1.15. Evaluated by general surgery;scheduled for diagnostic paracentesis with interventional radiology today and EGD with colonoscopy tomorrow. Reports nausea, ongoing abdominal pain, more so at the top as well as bilateral inguinal hernias. Hemoglobin increased to 9.4, platelets 124. 10/08/2023 status post paracentesis, 4.8 L. Unfortunately fluid culture/analysis was not performed. General surgery is canceled inpatient EGD with colonoscopy, recommending outpatient endoscopy. Denies current alcohol use .poor diet intake of clear liquid diet , denies nausea or vomiting .renal function worsening, creatinine up to 1.6. Sputum culture collected, pending. Blood cultures pending. Continues on Zosyn as per ID. Afebrile, WBC increased to 10.23. continues to report abdominal pain and bilateral inguinal hernia pain. Hemoglobin remains at 9.4, platelets 155. denies chest pain, palpitations or increased shortness of breath. Maintaining O2 sats in the high 90s on room air. 10/09/2023 reports did not sleep well, nausea and vomiting throughout the night and continues. Emesis of brown sputum. Denies diarrhea. sputum culture pending. Albumin 3.3. Renal function worsening, bicarb 19.2, BUN 51.8, creatinine 2.7, potassium trending, 5.5. Abdominal pain lessened. afebrile, WBC increased to 15.83. Maintained on Zosyn. Denies chest pain, palpitations or increased shortness of breath. Maintaining O2 sats of 97% on room air. Objective - Vital Signs Vital signs: Vital Signs Temp 97.6 F 10/09/23 07:20 Pulse 99 10/09/23 07:20 Resp 17 10/09/23 07:20 BP 111/71 10/09/23 07:20 Pulse Ox 97 10/09/23 07:20 FiO2 Intake & Output 10/08/23 10/09/23 10/09/23 18:59 06:59 18:59 Intake Total 237 Output Total 2 Balance 235 Intake: Oral 237 Output: Urine 2 Other: # Voids 1 5 1 - Exam PHYSICAL EXAM: VITAL SIGNS: [As above] GENERAL: Cachexic ,alert and oriented x 3, sitting up in bed, nauseated, fatigued HEENT: Normocephalic, conjunctivae normal. eyes normal. Poor dentition. NECK: Supple, no JVD. CARDIOVASCULAR: S1, S2 regular.. No murmur RESPIRATION: Unlabored, equal air entry , scattered rhonchi, diminished in the bases. ABDOMEN: Soft, nondistended, diffuse tenderness ,no guarding. scrotol edema. LEGS: No edema. no swelling NERVOUS SYSTEM: Cranial N 2-12 grossly normal. Generalized weakness. Skin: Warm and dry, no rash. - Labs CBC & Chem 7: 10/09/23 04:52 10/09/23 04:52 Labs: Abnormal Lab Results - Last 24 Hours (Table) 10/08/23 10/09/23 10/09/23 Range/Units 02:55 04:52 04:52 WBC 15.83 H (4.50-10.00) X 10*3/uL Hgb 10.0 L (13.0-17.0) g/dL Hct 33.7 L (39.6-50.0) % MCV 70.2 L (80.0-97.0) FL MCH 20.8 L (27.0-32.0) pg MCHC 29.7 L (32.0-37.0) g/dL RDW 20.6 H (11.5-14.5) % Immature Gran # 0.05 H 0.10 H (0.00-0.04) X 10*3/uL Neutrophils # 8.74 H 14.17 H (1.80-7.70) X 10*3/uL Lymphocytes # 0.32 L 0.22 L (0.90-5.00) X 10*3/uL Monocytes # 1.05 H 1.27 H (0.20-1.00) X 10*3/uL Eosinophils # 0.02 L 0.01 L (0.04-0.35) X 10*3/uL Hypochromasia (manual) 2+ A Microcytosis (manual) 3+ A Acanthocytes (Spur) 2+ A Schistocytes 1+ A Sodium 134 L (135-145) mmol/L Carbon Dioxide 19.2 L (21.6-31.8) mmol/L Anion Gap 14.80 H (4.00-12.00) mmol/L BUN 51.8 H (9.0-27.0) mg/dL Creatinine 2.7 H (0.6-1.5) mg/dL Est GFR (CKD-EPI) 24 L (>=60) Glucose 126 H (70-110) mg/dL Microbiology - Last 24 Hours (Table) 10/06/23 20:54 Blood Culture - Preliminary Blood Assessment and Plan Assessment: Acute gallstone pancreatitis, resolved Cholelithiasis reported on CT Left lower lobe aspiration pneumonia, suggested per CT Acute renal failure secondary to ATN, contrast, diuretics, paracentesis, hypotension Metabolic acidosis secondary to the above Severe protein calorie malnutrition. Albumin 3.3 Ascites in a patient with history of alcoholic cirrhosis, possible SBP, status post paracentesis 4.8 L Elevated CRP and procalcitonin Splenomegaly Anemia, further follow-up outpatient with Dr. Elvia Carlson whom patient follows with. Plan: Continue on current medication regimen ,monitoring and symptomatic treatment. Worsening renal failure, Cheatham catheter ordered, Aldactone discontinued, nephrology consulted. IV fluid hydration. avoid nephrotoxins. close monitoring of renal function, WBC with repeat labs ordered for a.m. Sputum and blood cultures finalizing. Aggressive pulmonary toileting, incentive spirometer at bedside, reinforced. DuoNebs added to med regimen. Sputum and blood cultures finalizing, antibiotics as per ID. discussed option of subacute rehab at discharge as patient appears significantly weak; patient declines. The impression and plan of care has been dictated as directed. : I performed a history and examination of this patient, discussed the same with the dictator. I agree with the dictator's note ,documented as a scribe. Any additional findings or plans will be noted.
--- NOTE | 2023-10-09 12:04 | P.NPCON ---
History of Present Illness - Reason for Consult acute renal failure - History of Present Illness Reason for consultation: Acute kidney injury History of present is: Patient is a 73-year-old male seen in renal consultation for acute kidney injury. Creatinine on admission was 1.59 dated October 05, 2023 and improved to 1.15 dated October 07, 2023. However the last 2 days her renal function has been worsening with creatinine up to 2.7 today. Cheatham catheter was placed this morning and he was also started on IV fluids with normal saline at 75 cc an hour. Patient came to the hospital on October 09, 2019 for the chief complaint of abdominal and back pain. Patient is not a very reliable historian. Patient did have episodes of vomiting prior to admission. CT of the abdomen and pelvis was done with IV contrast on October 05, 2023 which showed no evidence of hydronephrosis. Significant ascites, liver cirrhosis, splenomegaly, large inguinal hernias as well as left lower infiltrate were noted. Patient underwent paracentesis with 4.8 L drained on October 06, 2023. He was also receiving high-dose of Aldactone which was discontinued this morning. I do not see any NSAIDs on his home medication list. Vital signs are stable. General: No acute distress. HEENT: Head exam is unremarkable. LUNGS: No audible rhonchi or wheezes. HEART: Rate and Rhythm are regular. ABDOMEN: Nontender. EXTREMITITES: No edema. Past Medical History Past Medical History: GERD/Reflux, Hyperlipidemia, Hypertension, Liver Disease, Myocardial Infarction ([place]) Additional Past Medical History / Comment(s): clot in liver. esophageal varices. 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 Hernia. Last Myocardial Infarction Date:: unk History of Any Multi-Drug Resistant Organisms: None Reported Past Surgical History: Heart Catheterization With Stent Additional Past Surgical History / Comment(s): 2 heart stents, multiple large volume paracentesis procedures,left shoulder repair Past Anesthesia/Blood Transfusion Reactions: No Reported Reaction Additional Past Anesthesia/Blood Transfusion Reaction / Comment(s): no history of blood transfusion Date of Last Stent Placement:: 2002 Past Psychological History: No Psychological Hx Reported Smoking Status: Former smoker Past Alcohol Use History: None Reported Past Drug Use History: None Reported - Past Family History Mother Family Medical History: Cancer Sister(s) Family Medical History: Cancer Additional Family Medical History / Comment(s): 2 sisters-female Medications and Allergies Home Medications Medication Instructions Recorded Confirmed Type Atorvastatin [Lipitor] 40 mg PO DAILY@1300 07/12/14 10/05/23 History traMADol HCl [Ultram] 100 mg PO BID 07/12/14 10/05/23 History Aspirin [Adult Low Dose Aspirin EC] 81 mg PO DAILY@1300 08/06/20 10/05/23 History Loratadine [Claritin] 10 mg PO DAILY@1300 08/06/20 10/05/23 History atenoloL [Tenormin] 25 mg PO DAILY@1300 08/06/20 10/05/23 History Omeprazole 20 mg PO DAILY@1300 08/31/20 10/05/23 History Fluticasone Nasal [place] [Flonase 1 spr EA NOSTRIL 03/25/21 10/05/23 History Nasal [place]] Furosemide [Lasix] 40 mg PO DAILY@1300 07/09/21 10/05/23 History Lactulose 10 gm PO BID 12/06/21 10/05/23 History Cholecalciferol [Vitamin D3 (25 125 mcg PO TH 07/27/23 10/05/23 History Mcg = 1000 Iu)] Folic Acid 1 mg PO Q2D@1300 07/27/23 10/05/23 History Ferocon 1 cap PO DAILY@1300 10/05/23 10/05/23 History QUEtiapine [SEROquel] 25 mg PO HS PRN 10/05/23 10/05/23 History Spironolactone [Aldactone] 200 mg PO DAILY@1300 10/05/23 10/05/23 History Allergies Allergy/AdvReac Type Severity Reaction Status Date / Time No Known Allergies Allergy Verified 10/05/23 19:34 Physical Exam Vitals: Vital Signs Temp Pulse Resp BP Pulse Ox 10/09/23 09:32 17 10/09/23 07:20 97.6 F 99 17 111/71 97 10/09/23 01:05 98.2 F 91 14 105/68 94 L 10/08/23 18:53 97.4 F L 94 16 117/77 95 10/08/23 14:03 97.9 F 85 18 95/63 97 Intake and Output 10/08/23 10/09/23 10/09/23 22:59 06:59 14:59 Intake Total 237 Output Total 2 Balance 235 Intake: Oral 237 Output: Urine 2 Other: Voiding Method Diaper # Voids 1 5 1 Results - Lab Results Most recent lab results Calcium 9.9 mg/dL (8.7-10.3) 10/09/23 04:52 10/09/23 04:52 10/09/23 04:52 Assessment and Plan Plan: Assessment: 1. Acute kidney injury secondary to ATN secondary to hypotension, diuretic use as well as paracentesis. Also received IV contrast on October 05, 2023. Creatinine as low as 1.15 this admission and up to 2.7 today. No hydronephrosis noted on CAT scan. No proteinuria on UA. 2. Liver cirrhosis. 3. Ascites status post paracentesis status post 4.8 L drained October 06, 2023. 4. Pneumonia and possible SBP on antibiotics. ID following. 5. Metabolic acidosis secondary to acute kidney injury. Plan: IV fluid started this morning. Aldactone discontinued this morning. Maintain Cheatham catheter. Add oral bicarb. Avoid nephrotoxins. Continue to monitor renal function and urine output. Thank you for the consultation. I will continue to follow the patient with you during his hospital stay.
[2023-10-09] MEDS: IPRATROPIUM-ALBUTEROL 3 ML NEB INHALATION SCH (12:21)
--- NOTE | 2023-10-09 12:55 | P.PN ---
Subjective Progress Note Date: 10/09/23 CHIEF COMPLAINT: Abdominal pain HISTORY OF PRESENT ILLNESS: Patient has been vomiting. His diet has been downgraded to clear liquids. Medicine service has added Reglan. He is having flatus no bowel movement. Patient initially complaining of abdominal pain this morning. But when evaluated with Dr. Reeves patient said his pain was okay. Afebrile. WBC is up from 10-15.83 Hgb 10.0 platelets 224 sodium is 134 potassium 5.5 creatinine up 2.7 PHYSICAL EXAM: VITAL SIGNS: Reviewed. GENERAL: no acute distress. ABDOMEN: Soft. Nondistended. Mild tenderness right upper quadrant. Tenderness with palpation in the right inguinal hernia. Left inguinal hernia nontender NEUROLOGIC: Awake and able to answer questions ASSESSMENT: 1. Acute gallstone pancreatitis 2. Cholelithiasis 3. History of alcohol use disorder 4. Anemia with evidence of iron deficiency 5. History of liver cirrhosis and abdominal ascites requiring paracentesis 6. Bilateral inguinal hernias containing ascitic fluid noted on CT scan PLAN: -Patient with acute gallstone pancreatitis and multiple comorbidities. Recom mend cholecystectomy when medically stable -Bilateral inguinal hernias containing ascites fluid. No surgical intervention planned at this time -Continue to observe patient closely -IV fluids started normal saline at 75 mill per hour -Patient having emesis. Downgrade diet to clear liquids. -Agree with adding Reglan. Continue antiemetics. -Recommend EGD and colonoscopy outpatient for further evaluation of anemia Physician Cafeteria Or [employer]unchroom Checker note has been reviewed by physician. Signing provider agrees with the documented findings, assessment, and plan of care. Objective - Vital Signs Vital signs: Vital Signs Temp 97.6 F 10/09/23 07:20 Pulse 99 10/09/23 07:20 Resp 17 10/09/23 09:32 BP 111/71 10/09/23 07:20 Pulse Ox 97 10/09/23 07:20 FiO2 Intake & Output 10/08/23 10/09/23 10/09/23 18:59 06:59 18:59 Intake Total 237 Output Total 2 Balance 235 Intake: Oral 237 Output: Urine 2 Other: Voiding Method Diaper # Voids 1 5 1 - Labs CBC & Chem 7: 10/09/23 04:52 10/09/23 04:52 Labs: Abnormal Lab Results - Last 24 Hours (Table) 10/09/23 10/09/23 Range/Units 04:52 04:52 WBC 15.83 H (4.50-10.00) X 10*3/uL Hgb 10.0 L (13.0-17.0) g/dL Hct 33.7 L (39.6-50.0) % MCV 70.2 L (80.0-97.0) FL MCH 20.8 L (27.0-32.0) pg MCHC 29.7 L (32.0-37.0) g/dL RDW 20.6 H (11.5-14.5) % Immature Gran # 0.10 H (0.00-0.04) X 10*3/uL Neutrophils # 14.17 H (1.80-7.70) X 10*3/uL Lymphocytes # 0.22 L (0.90-5.00) X 10*3/uL Monocytes # 1.27 H (0.20-1.00) X 10*3/uL Eosinophils # 0.01 L (0.04-0.35) X 10*3/uL Sodium 134 L (135-145) mmol/L Carbon Dioxide 19.2 L (21.6-31.8) mmol/L Anion Gap 14.80 H (4.00-12.00) mmol/L BUN 51.8 H (9.0-27.0) mg/dL Creatinine 2.7 H (0.6-1.5) mg/dL Est GFR (CKD-EPI) 24 L (>=60) Glucose 126 H (70-110) mg/dL Microbiology - Last 24 Hours (Table) 10/08/23 18:02 Gram Stain - Preliminary Sputum 10/06/23 20:54 Blood Culture - Preliminary Blood
[2023-10-09] MEDS: SODIUM CHLORIDE 0.9% 1,000 ML IV SCH (12:56)
[2023-10-09] MEDS: SODIUM BICARBONATE TAB 650 MG TAB PO SCH (13:11)
--- NOTE | 2023-10-09 15:08 | XR ---
EXAMINATION TYPE: XR chest 1V portable DATE OF EXAM: 10/09/2023 COMPARISON: NONE HISTORY: NG tube placement TECHNIQUE: Single frontal view of the chest is obtained. FINDINGS: NG tube seen with the tip at the level of the GE junction. There is patchy right lower lob e infiltrate. No pleural effusion or pneumothorax. No interstitial edema. Heart size normal. Atherosc lerotic change aorta. AC joint arthropathy. Degenerative changes spine. Multiple prominent small jatinder l loops in the upper abdomen. IMPRESSION: 1. Patchy right lower lobe infiltrate. 2. NG tube could be advanced with the tip at the level of the GE junction. 3. Dilated small bowel loops correlate bowel obstruction or ileus.
[2023-10-09] MEDS: IOPAMIDOL CONTRAST (ORAL USE) VIAL PO PRN (15:47)
--- NOTE | 2023-10-09 16:37 | P.PN ---
Subjective Progress Note Date: 10/09/23 Principal diagnosis: Reason for follow-up is pneumonia Patient is a 73-year-old male with a past medical history significant for hypertension hyperlipidemia, reflux MT and did have cirrhosis of the liver presenting to the hospital for evaluation of worsening abdominal pain and vomiting patient did have CT abdominal pelvis suggestive of ascites and did have left lower lobe infiltrate concerning for pneumonia question of possible aspiration. On today's evaluation that is 10/09/2023,the patient remains to be afebrile, patient is on room air not requiring supplemental oxygen and denies any shortness of breath no chest pain did have occasional dry cough patient comp laining of nausea with episode of vomiting and abdominal discomfort. Patient white count is 15.83 creatinine is 2.7 Objective - Vital Signs Vital signs: Vital Signs Temp 97.6 F 10/09/23 07:20 Pulse 99 10/09/23 07:20 Resp 17 10/09/23 09:32 BP 111/71 10/09/23 07:20 Pulse Ox 97 10/09/23 07:20 FiO2 Intake & Output 10/08/23 10/09/23 10/09/23 18:59 06:59 18:59 Intake Total 237 Output Total 2 Balance 235 Intake: Oral 237 Output: Urine 2 Other: Voiding Method Diaper # Voids 1 5 1 - Exam GENERAL DESCRIPTION: An elderly male lying in bed in no distress RESPIRATORY SYSTEM: Unlabored breathing , decreased breath sounds at bases HEART: S1 S2 regular rate and rhythm , ABDOMEN: Soft , mild tenderness EXTREMITIES: No edema feet - Labs CBC & Chem 7: 10/09/23 04:52 10/09/23 04:52 Labs: Abnormal Lab Results - Last 24 Hours (Table) 10/09/23 10/09/23 Range/Units 04:52 04:52 WBC 15.83 H (4.50-10.00) X 10*3/uL Hgb 10.0 L (13.0-17.0) g/dL Hct 33.7 L (39.6-50.0) % MCV 70.2 L (80.0-97.0) FL MCH 20.8 L (27.0-32.0) pg MCHC 29.7 L (32.0-37.0) g/dL RDW 20.6 H (11.5-14.5) % Immature Gran # 0.10 H (0.00-0.04) X 10*3/uL Neutrophils # 14.17 H (1.80-7.70) X 10*3/uL Lymphocytes # 0.22 L (0.90-5.00) X 10*3/uL Monocytes # 1.27 H (0.20-1.00) X 10*3/uL Eosinophils # 0.01 L (0.04-0.35) X 10*3/uL Sodium 134 L (135-145) mmol/L Carbon Dioxide 19.2 L (21.6-31.8) mmol/L Anion Gap 14.80 H (4.00-12.00) mmol/L BUN 51.8 H (9.0-27.0) mg/dL Creatinine 2.7 H (0.6-1.5) mg/dL Est GFR (CKD-EPI) 24 L (>=60) Glucose 126 H (70-110) mg/dL Microbiology - Last 24 Hours (Table) 10/08/23 18:02 Gram Stain - Preliminary Sputum 10/06/23 20:54 Blood Culture - Preliminary Blood Assessment and Plan (1) Aspiration pneumonia Current Visit: Yes Status: Acute Code(s): J69.0 - PNEUMONITIS DUE TO INHALATION OF FOOD AND VOMIT SNOMED Code(s): 107647703 Plan: 1patient presented hospital abdominal pain and also have multiple episodes of vomiting now with abnormal CT concerning for left lower lobe pneumonia with question of aspiration etiology patient did have significant ascites status post paracentesis and the patient complains of abdominal pain unfortunately fluid has not been sent for analysis underlying SBP cannot be done excluded 2-patient blood culture currently pending patient did have elevated CRP and a procalcitonin 0.33 3-patient noted to have slight worsening of the white count and will monitor closely for now continue with Zosyn and continue supportive care Dictation was produced using [employer] dictation software. please excuse any grammatical, word or spelling errors. Time with Patient: Less than 30
--- NOTE | 2023-10-09 18:20 | CT ---
EXAMINATION TYPE: CT abdomen pelvis wo con DATE OF EXAM: 10/09/2023 COMPARISON: 10/05/2023 HISTORY: 73-year-old male abdominal pain, vomiting CT DLP: 718.8 mGycm. Automated exposure control for dose reduction was used. TECHNIQUE: Contiguous axial scanning of the abdomen and pelvis without IV contrast. Coronal and sagit susy reconstructions performed. FINDINGS: Extensive new tree-in-bud opacities with patchy infiltrate at the right lower lung. Focal subpleural opacity measuring 3.0 cm per persists at the posterior left base. Trace right pleural effusion. Distal esophageal varices. Heart normal size. Trace anterior pericardial effusion measuring 6 mm thic k. NG tube is present. Shrunken and cirrhotic liver morphology. Couple gallstones measuring up to 7 mm. No abnormal gallblad paco distention. Adrenal glands, kidneys, and pancreas within normal limits. Mild splenomegaly at 14.9 cm. Multiple dilated small bowel loops measuring up to 3.9 cm. Transition point is at the level of a larg e right inguinal hernia containing ascites fluid and a loop of small bowel. The distal ileum is colla psed.. Mild stool burden. The proximal sigmoid colon just protrudes beyond the deep left inguinal ring. Mode rate-sized ascites filled left inguinal hernia. No abdominal or pelvic lymphadenopathy identified. Bladder is collapsed with Cheatham catheter present. Intraluminal bladder relating to the instrumentatio n. Scattered mild abdominal ascites. Diminished from 10/05/2023. There are very large bilateral hydroceles present. Dictation the lower thoracic spine. Hypertrophic facet arthropathy lower lumbar spine. IMPRESSION: 1. Small bowel obstruction (small bowel loops dilated up to 3.9 cm) with a transition point at the l evel of the large right inguinal hernia. 2. Cirrhosis and portal venous hypertension with splenomegaly and distal esophageal varices. Mild ab dominal ascites remains, decreased from 10/05/2023. Sizable bilateral inguinal hernias filled with asci diana fluid. 3. Extensive new tree-in-bud opacities and patchy infiltrate at the right lower lung. Consider pneum onia including atypical pneumonias or aspiration pneumonitis. 4. Similar 3.0 cm subpleural mass-like opacity at the left base. While pneumonia is possible, follow -up after treatment to ensure clearance and exclude neoplasm. 5. Very large bilateral hydroceles.
[2023-10-10 09:35] LABS: Anisocytosis Slight; Basophils % (A) 0 %; Eosinophils % (A) 0 %; HCT 33.4 % (39.0-53.0); HGB 9.9 gm/dL (13.0-17.5); Hypochromasia Marked; Lymphocytes # (A) 0.3 k/uL (1.0-4.8); Lymphocytes % (A) 2 %; MCH 22.1 pg (25.0-35.0); MCHC 29.7 g/dL (31.0-37.0); MCV 74.4 fL (80.0-100.0); Mean Platelet Volume 8.8; Microcytosis Moderate; Monocytes # (A) 0.9 k/uL (0-1.0); Monocytes % (A) 6 %; Neutrophils # (A) 12.1 k/uL (1.3-7.7); Neutrophils % (A) 88 %; Platelet Count 141 k/uL (150-450); RBC 4.49 m/uL (4.30-5.90); RDW 19.2 % (11.5-15.5); WBC 13.7 k/uL (3.8-10.6)
[2023-10-10 09:43] LABS: African American GFR (CKD) 13 (>60 ml/min/1.73 sqM); Anion Gap 15 mmol/L; Blood Urea Nitrogen 81 mg/dL (9-20); Calcium 9.1 mg/dL (8.4-10.2); Carbon Dioxide 17 mmol/L (22-30); Chloride 102 mmol/L (98-107); Glucose 80 mg/dL (74-99); Non-African American GFR(CKD) 12 (>60 ml/min/1.73 sqM); Potassium 5.6 mmol/L (3.5-5.1); Sodium 134 mmol/L (137-145)
[2023-10-10] MEDS ORDERED: LIDOCAINE 1% INJ 10MG/ML (20 ML MDV) ONE (12:51)
--- NOTE | 2023-10-10 13:29 | P.PN ---
Subjective Progress Note Date: 10/10/23 Patient seen in follow-up for JAROD. He is more confused today with worsening renal funciton and decreased urine output per nursing. Had long discussion with over phone recommending dialysis initiation and she is agreeable to this. She will be coming up to hospital now and will discuss further with patient his wishes and if he becomes adament about not doing dialysis then will consider comfort measures. Vital signs are stable. General: No acute distress. HEENT: Head exam is unremarkable. LUNGS: No audible rhonchi or wheezes. HEART: Rate and Rhythm are regular. ABDOMEN: Nontender. EXTREMITITES: No edema. Objective - Vital Signs Vital signs: Vital Signs Temp 97.7 F 10/10/23 07:38 Pulse 82 10/10/23 07:38 Resp 19 10/10/23 07:38 BP 93/57 10/10/23 07:38 Pulse Ox 92 L 10/10/23 07:38 FiO2 Intake & Output 10/09/23 10/10/23 10/10/23 18:59 06:59 18:59 Output Total 1150 Balance -1150 Output: Urine 50 Other 1100 Other: Voiding Method Diaper Indwelling Catheter # Voids 1 - Labs CBC & Chem 7: 10/10/23 06:37 10/10/23 06:37 Labs: Abnormal Lab Results - Last 24 Hours (Table) 10/10/23 10/10/23 Range/Units 06:37 06:37 WBC 13.7 H (3.8-10.6) k/uL Hgb 9.9 L (13.0-17.5) gm/dL Hct 33.4 L (39.0-53.0) % MCV 74.4 L (80.0-100.0) fL MCH 22.1 L (25.0-35.0) pg MCHC 29.7 L (31.0-37.0) g/dL RDW 19.2 H (11.5-15.5) % Plt Count 141 L (150-450) k/uL Neutrophils # 12.1 H (1.3-7.7) k/uL Lymphocytes # 0.3 L (1.0-4.8) k/uL Sodium 134 L (137-145) mmol/L Potassium 5.6 H (3.5-5.1) mmol/L Carbon Dioxide 17 L (22-30) mmol/L BUN 81 H (9-20) mg/dL Creatinine 4.65 H (0.66-1.25) mg/dL Microbiology - Last 24 Hours (Table) 10/06/23 20:54 Blood Culture - Preliminary Blood 10/08/23 18:02 Gram Stain - Preliminary Sputum Assessment and Plan Plan: Assessment: 1. Acute kidney injury secondary to ATN secondary to hypotension, diuretic use as well as paracentesis. Also received IV contrast on October 05, 2023. Creatinine as low as 1.15 this admission and up to 4.6 today and decreased urine output. No hydronephrosis noted on CAT scan. No proteinuria on UA. 2. Liver cirrhosis. 3. Ascites status post paracentesis status post 4.8 L drained October 06, 2023. 4. Pneumonia and possible SBP on antibiotics. ID following. 5. Metabolic acidosis secondary to acute kidney injury. Plan: IV fluids, no improvement in renal function. Aldactone discontinued. Maintain Cheatham catheter. Oral bicarb. Worsening renal function now oliguric, patient unable to consent, discussed with agreeable to starting dialysis today. Will consult vascular for HD line placement.
[2023-10-10] MEDS: LIDOCAINE 1% INJ 10MG/ML (20 ML MDV) SQ ONE ×2 (13:32→14:03)
[2023-10-10] MEDS: IOPAMIDOL-250 100ML BTL INTRAARTER ONE (14:11)
--- NOTE | 2023-10-10 14:30 | P.GSCN ---
History of Present Illness History of present illness: 73-year-old gentleman consulted for placement of dialysis catheter. Patient has history of confusion and kidney functions are worsening patient has a low urine output potassium is 5.6 BUN 81 creatinine 4.5 patient is scheduled to have a placement of the dialysis catheter Neck examination patient has no bruit appreciated has a G-tube Chest few crackles the lung bases. Second sound present Abdomen is soft nontender patient is a 2 large hernia right and left groin area femoral pulse is 2+ Plan is placement of a dialysis catheter risk and complication discussed Past Medical History Past Medical History: GERD/Reflux, Hyperlipidemia, Hypertension, Liver Disease, Myocardial Infarction (SD) Additional Past Medical History / Comment(s): clot in liver. esophageal varices. 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 Hernia. Last Myocardial Infarction Date:: unk History of Any Multi-Drug Resistant Organisms: None Reported Past Surgical History: Heart Catheterization With Stent Additional Past Surgical History / Comment(s): 2 heart stents, multiple large volume paracentesis procedures,left shoulder repair Past Anesthesia/Blood Transfusion Reactions: No Reported Reaction Additional Past Anesthesia/Blood Transfusion Reaction / Comm: no history of blood transfusion Date of Last Stent Placement:: 2002 Past Psychological History: No Psychological Hx Reported Smoking Status: Former smoker Past Alcohol Use History: None Reported Past Drug Use History: None Reported - Past Family History Mother Family Medical History: Cancer Sister(s) Family Medical History: Cancer Additional Family Medical History / Comment(s): 2 sisters-female Medications and Allergies Home Medications Medication Instructions Recorded Confirmed Type Atorvastatin [Lipitor] 40 mg PO DAILY@1300 07/12/14 10/05/23 History traMADol HCl [Ultram] 100 mg PO BID 07/12/14 10/05/23 History Aspirin [Adult Low Dose Aspirin EC] 81 mg PO DAILY@1300 08/06/20 10/05/23 History Loratadine [Claritin] 10 mg PO DAILY@129908/06/20 10/05/23 History atenoloL [Tenormin] 25 mg PO DAILY@1300 08/06/20 10/05/23 History Omeprazole 20 mg PO DAILY@1300 08/31/20 10/05/23 History Fluticasone Nasal [place] [Flonase 1 spr EA NOSTRIL HS 03/25/21 10/05/23 History Nasal [place]] Furosemide [Lasix] 40 mg PO DAILY@1300 07/09/21 10/05/23 History Lactulose 10 gm PO BID 12/06/21 10/05/23 History Cholecalciferol [Vitamin D3 (25 125 mcg PO TH 07/27/23 10/05/23 History Mcg = 1000 Iu)] Folic Acid 1 mg PO Q2D@1300 07/27/23 10/05/23 History Ferocon 1 cap PO DAILY@1300 10/05/23 10/05/23 History QUEtiapine [SEROquel] 25 mg PO HS PRN 10/05/23 10/05/23 History Spironolactone [Aldactone] 200 mg PO DAILY@1300 10/05/23 10/05/23 History Allergies Allergy/AdvReac Type Severity Reaction Status Date / Time No Known Allergies Allergy Verified 10/05/23 19:34 Surgical - Exam Vital Signs Temp Pulse Resp BP Pulse Ox 97.8 F 75 18 111/54 97 10/05/23 15:51 10/05/23 15:51 10/05/23 15:51 10/05/23 15:51 10/05/23 15:51 Results - Labs 10/10/23 06:37 10/10/23 06:37 Abnormal Lab Results - Last 24 Hours (Table) 10/10/23 10/10/23 Range/Units 06:37 06:37 WBC 13.7 H (3.8-10.6) k/uL Hgb 9.9 L (13.0-17.5) gm/dL Hct 33.4 L (39.0-53.0) % MCV 74.4 L (80.0-100.0) fL MCH 22.1 L (25.0-35.0) pg MCHC 29.7 L (31.0-37.0) g/dL RDW 19.2 H (11.5-15.5) % Plt Count 141 L (150-450) k/uL Neutrophils # 12.1 H (1.3-7.7) k/uL Lymphocytes # 0.3 L (1.0-4.8) k/uL Sodium 134 L (137-145) mmol/L Potassium 5.6 H (3.5-5.1) mmol/L Carbon Dioxide 17 L (22-30) mmol/L BUN 81 H (9-20) mg/dL Creatinine 4.65 H (0.66-1.25) mg/dL Microbiology - Last 24 Hours (Table) 10/08/23 18:02 Gram Stain - Preliminary Sputum Sputum Culture - Preliminary Ann albicans 10/06/23 20:54 Blood Culture - Preliminary Blood Diabetes panel 10/10/23 Range/Units 06:37 Sodium 134 L (137-145) mmol/L Potassium 5.6 H (3.5-5.1) mmol/L Chloride 102 (98-107) mmol/L Carbon Dioxide 17 L (22-30) mmol/L BUN 81 H (9-20) mg/dL Creatinine 4.65 H (0.66-1.25) mg/dL Glucose 80 (74-99) mg/dL Calcium 9.1 (8.4-10.2) mg/dL Calcium panel 10/10/23 Range/Units 06:37 Calcium 9.1 (8.4-10.2) mg/dL Pituitary panel 10/10/23 Range/Units 06:37 Sodium 134 L (137-145) mmol/L Potassium 5.6 H (3.5-5.1) mmol/L Chloride 102 (98-107) mmol/L Carbon Dioxide 17 L (22-30) mmol/L BUN 81 H (9-20) mg/dL Creatinine 4.65 H (0.66-1.25) mg/dL Glucose 80 (74-99) mg/dL Calcium 9.1 (8.4-10.2) mg/dL Adrenal panel 10/10/23 Range/Units 06:37 Sodium 134 L (137-145) mmol/L Potassium 5.6 H (3.5-5.1) mmol/L Chloride 102 (98-107) mmol/L Carbon Dioxide 17 L (22-30) mmol/L BUN 81 H (9-20) mg/dL Creatinine 4.65 H (0.66-1.25) mg/dL Glucose 80 (74-99) mg/dL Calcium 9.1 (8.4-10.2) mg/dL
--- NOTE | 2023-10-10 14:34 | P.PCN ---
Description of Procedure: Preop diagnosis is acute chronic renal failure potassium 5.6 creatinine 4.5 BUN 81 patient has a low urine output Procedure right and left groins were prepped and draped in Prestel manner thank you sunlight candidate for infected left groin area. 1% lidocaine plain infiltrated left femoral vein accessed through the micropuncture needle micropuncture guide was passed and 4 point dilator advanced up the guidewire then we passed the regular guidewire there was some resistance in advancing the guidewire and also the dilator then we decided to go through the right groin right groin was prepped and draped in Prestel manner 1% lidocaine were infiltrated ultrasound-guided micropuncture introduced right femoral vein micropuncture guide was passed and 4 Mauritian dilator advanced. The guidewire. With hand-injection venacavogram was performed iliac vein and superior vena cava was found to be patent then we passed the regular guidewire under fluoroscopic control and dilators were advanced up the guidewire that we placed dialysis catheter on the top of the guidewire flushed with heparin saline hep-locked secured with 3-0 nylon dressing applied patient tolerated procedure well
--- NOTE | 2023-10-10 15:03 | IR ---
EXAMINATION TYPE: IR cvc insert non tunneled Intraoperative/procedural fluoroscopic services were pro vided. CLINICAL INDICATION:Male, 73 years old with history of Dialysis, 0.5m/6.0509DAP, 12.5 X 20cm [facility] Dialysis cath; , [facility] Total fluoroscopy time is 0.5 min. DAP: 224 [id number] Please see the operative/procedural note for further details.
[2023-10-10] MEDS: PIPERACILLIN-TAZOBACTAM 3.375 GM in SODIUM CHLORIDE 0.9% 100 ML IVPB SCH (15:30)
[2023-10-10] MEDS: MIDODRINE 5 MG TAB PO PRN (19:04)
--- NOTE | 2023-10-10 20:48 | P.PN ---
Subjective Progress Note Date: 10/10/23 Principal diagnosis: Reason for follow-up is pneumonia Patient is a 73-year-old male with a past medical history significant for hypertension hyperlipidemia, reflux WI and did have cirrhosis of the liver presenting to the hospital for evaluation of worsening abdominal pain and vomiting patient did have CT abdominal pelvis suggestive of ascites and did have left lower lobe infiltrate concerning for pneumonia question of possible aspiration. On today's evaluation that is 10/10/2023, the patient continues to be afebrile, the patient is on room air and breathing comfortably, the Pt denies having any chest pain or any worsening cough, the patient did have NG because of persistent vomiting significant output still currently bleeding abdominal pain no bowel movement. Patient white count is down to 13.7 creatinine is 4.65 sputum is Ann albicans Objective - Vital Signs Vital signs: Vital Signs Temp 97.7 F 10/10/23 07:38 Pulse 82 10/10/23 07:38 Resp 19 10/10/23 07:38 BP 93/57 10/10/23 07:38 Pulse Ox 92 L 10/10/23 07:38 FiO2 Intake & Output 10/09/23 10/10/23 10/10/23 18:59 06:59 18:59 Output Total 1150 Balance -1150 Output: Urine 50 Other 1100 Other: Voiding Method Diaper # Voids 1 - Exam GENERAL DESCRIPTION: An elderly male lying in bed in no distress RESPIRATORY SYSTEM: Unlabored breathing , decreased breath sounds at bases HEART: S1 S2 regular rate and rhythm , ABDOMEN: Soft , mild tenderness EXTREMITIES: No edema feet - Labs CBC & Chem 7: 10/10/23 06:37 10/10/23 06:37 Labs: Microbiology - Last 24 Hours (Table) 10/06/23 20:54 Blood Culture - Preliminary Blood 10/08/23 18:02 Gram Stain - Preliminary Sputum Assessment and Plan (1) Aspiration pneumonia Current Visit: Yes Status: Acute Code(s): J69.0 - PNEUMONITIS DUE TO INHALATION OF FOOD AND VOMIT SNOMED Code(s): 139470825 Plan: 1patient presented hospital abdominal pain and also have multiple episodes of vomiting now with abnormal CT concerning for left lower lobe pneumonia with question of aspiration etiology patient did have significant ascites status post paracentesis and the patient complains of abdominal pain unfortunately fluid has not been sent for analysis, patient did have given the significant ileus requiring NG placement also noticed to have worsening of his kidney function for which nephrology consulted and possible plan for dialysis 2-patient blood culture currently pending patient did have elevated CRP and a procalcitonin 0.33 3-patient did have improvement in the white count and will continue with Zosyn and continue supportive care Dictation was produced using [employer] dictation software. please excuse any grammatical, word or spelling errors. Time with Patient: Less than 30
--- NOTE | 2023-10-10 23:10 | P.PN ---
Subjective Patient seen and evaluated at bedside. Patient admits to mild abdominal pain, denies nausea or vomiting. Objective - Vital Signs Vital signs: Vital Signs Temp 97.6 F 10/10/23 22:23 Pulse 92 10/10/23 22:23 Resp 18 10/10/23 22:23 BP 98/53 10/10/23 22:23 Pulse Ox 96 10/10/23 20:00 FiO2 Intake & Output 10/10/23 10/10/23 10/11/23 06:59 18:59 06:59 Intake Total 600 Output Total 6985 973 2472 Balance -1150 -650 -528 Intake: Hemodialysis 600 Output: Gastric Drainage 650 900 Urine 50 Hemodialysis 228 Other 1100 Other: Voiding Method Indwelling Catheter # Voids 250 - Exam PHYSICAL EXAM: VITAL SIGNS: Reviewed. GENERAL: no acute distress. ABDOMEN: Soft. Nondistended. Mild tenderness right upper quadrant. Tenderness with palpation in the right inguinal hernia. Left inguinal hernia nontender NEUROLOGIC: Awake and able to answer questions - Labs CBC & Chem 7: 10/10/23 06:37 10/10/23 06:37 Labs: Abnormal Lab Results - Last 24 Hours (Table) 10/10/23 10/10/23 Range/Units 06:37 06:37 WBC 13.7 H (3.8-10.6) k/uL Hgb 9.9 L (13.0-17.5) gm/dL Hct 33.4 L (39.0-53.0) % MCV 74.4 L (80.0-100.0) fL MCH 22.1 L (25.0-35.0) pg MCHC 29.7 L (31.0-37.0) g/dL RDW 19.2 H (11.5-15.5) % Plt Count 141 L (150-450) k/uL Neutrophils # 12.1 H (1.3-7.7) k/uL Lymphocytes # 0.3 L (1.0-4.8) k/uL Sodium 134 L (137-145) mmol/L Potassium 5.6 H (3.5-5.1) mmol/L Carbon Dioxide 17 L (22-30) mmol/L BUN 81 H (9-20) mg/dL Creatinine 4.65 H (0.66-1.25) mg/dL Microbiology - Last 24 Hours (Table) 10/08/23 18:02 Gram Stain - Preliminary Sputum Sputum Culture - Preliminary Ann albicans 10/06/23 20:54 Blood Culture - Preliminary Blood Assessment and Plan Assessment: ASSESSMENT: 1. Acute gallstone pancreatitis 2. Cholelithiasis 3. History of alcohol use disorder 4. Anemia with evidence of iron deficiency 5. History of liver cirrhosis and abdominal ascites requiring paracentesis 6. Bilateral inguinal hernias containing ascitic fluid noted on CT scan PLAN: -Patient with acute gallstone pancreatitis and multiple comorbidities. Recommend cholecystectomy when medically stable -Bilateral inguinal hernias containing ascites fluid. No surgical intervention planned at this time -Continue to observe patient closely -IV fluids started normal saline at 75 mill per hour -Continue ngt-lis -Agree with adding Reglan. Continue antiemetics. -Recommend EGD and colonoscopy outpatient for further evaluation of anemia
[2023-10-10 23:25] LABS: Hepatitis B Surface AB- Quant 3.5 mIU/mL
--- NOTE | 2023-10-11 11:39 | P.PN ---
Subjective Progress Note Date: 10/11/23 the patient states he has some minimal abdominal pain. He denies any nausea or vomiting. He is still has had significant output through his nasogastric tube. On exam vital signs appear stable. Abdomen is soft. Patient has 2 large bilateral inguinal hernias. The right inguinal hernia is soft and partially reducible. The patient's previous Valtrex may be related to his inguinal hernia. Patient will be observed. We will repeat his CAT scan with oral contrast. The patient is extremely high surgical risk due to his chronic liver failure and ascites. Objective - Vital Signs Vital signs: Vital Signs Temp 98.5 F 10/11/23 07:29 Pulse 76 10/11/23 07:29 Resp 18 10/11/23 07:29 BP 101/60 10/11/23 08:04 Pulse Ox 86 L 10/11/23 08:04 FiO2 Intake & Output 10/10/23 10/11/23 10/11/23 18:59 06:59 18:59 Intake Total 600 Output Total 650 1178 Balance -650 -578 Intake: Hemodialysis 600 Output: Gastric Drainage 650 900 Urine 50 Hemodialysis 228 Other: Voiding Method Indwelling Catheter Indwelling Catheter Indwelling Catheter # Voids 250 - Labs CBC & Chem 7: 10/10/23 06:37 10/10/23 06:37 Labs: Microbiology - Last 24 Hours (Table) 10/08/23 18:02 Gram Stain - Final Sputum Sputum Culture - Final Ann albicans
--- NOTE | 2023-10-11 12:05 | P.PN ---
Subjective Progress Note Date: 10/11/23 Patient seen in follow-up for JAROD. He is more confused today with worsening renal funciton and decreased urine output per nursing. Started HD 10/09. Vital signs are stable. General: No acute distress. HEENT: Head exam is unremarkable. LUNGS: No audible rhonchi or wheezes. HEART: Rate and Rhythm are regular. ABDOMEN: Nontender. +Ascites EXTREMITITES: No edema. Objective - Vital Signs Vital signs: Vital Signs Temp 98.5 F 10/11/23 07:29 Pulse 76 10/11/23 07:29 Resp 18 10/11/23 07:29 BP 101/60 10/11/23 08:04 Pulse Ox 86 L 10/11/23 08:04 FiO2 Intake & Output 10/10/23 10/11/23 10/11/23 18:59 06:59 18:59 Intake Total 600 Output Total 650 1178 Balance -650 -578 Intake: Hemodialysis 600 Output: Gastric Drainage 650 900 Urine 50 Hemodialysis 228 Other: Voiding Method Indwelling Catheter Indwelling Catheter Indwelling Catheter # Voids 250 - Labs CBC & Chem 7: 10/10/23 06:37 10/10/23 06:37 Labs: Microbiology - Last 24 Hours (Table) 10/08/23 18:02 Gram Stain - Final Sputum Sputum Culture - Final Ann albicans Assessment and Plan Plan: Assessment: 1. Acute kidney injury secondary to ATN secondary to hypotension, diuretic use as well as paracentesis. Also received IV contrast on October 05, 2023. Creatinine as low as 1.15 this admission and up to 4.6 and oliguric, started HD with temp cath 10/09. 2. Liver cirrhosis. 3. Ascites status post paracentesis status post 4.8 L drained October 06, 2023. 4. Pneumonia and possible SBP on antibiotics. ID following. 5. Metabolic acidosis secondary to acute kidney injury. Plan: IV fluids, no improvement in renal function. Aldactone discontinued. Maintain Cheatham catheter. Oral bicarb. First HD yesterday, next treatment tomorrow. Will schedule midodrine 5mg TID, consider IV albumin to further help BP.
[2023-10-11] MEDS: MIDODRINE 5 MG TAB PO SCH (12:17)
[2023-10-11] MEDS: IOPAMIDOL CONTRAST (ORAL USE) VIAL PO PRN (12:24)
--- NOTE | 2023-10-11 15:22 | CT ---
EXAMINATION TYPE: CT abdomen pelvis wo con DATE OF EXAM: 10/11/2023 COMPARISON: 10/09/2023 HISTORY: abdominal distention CT DLP: 563.9 mGycm Automated exposure control for dose reduction was used. TECHNIQUE: Helical acquisition of images was performed from the lung bases through the pelvis. FINDINGS: A 2.5 cm masslike opacity in the subpleural parenchymal left medial lung base is again seen and is co nsistent with atelectasis or pneumonia but neoplasm is not excluded. Continued follow-up is recommend ed. There is increasing airspace opacification in the right lung base consistent with worsening pneumonia . There is an NG tube within the stomach. There are gallstones but no gallbladder distention.. There is no biliary ductal dilatation. The liver is small in size and lobulated in contour consistent with severe cirrhosis. Pancreas is mil dly atrophic and there are pancreatic calcifications consistent with chronic pancreatitis. There is n o splenomegaly. There are esophageal varices. There are no renal calcifications or hydronephrosis. The caliber of the abdominal aorta is normal and there is no retroperitoneal adenopathy or hemorrhage . There is no change in the large right inguinal hernia containing bowel loops with dilatation of the p roximal bowel loops and stomach consistent with distal small bowel obstruction secondary to the herni a. There is a large amount of ascites and ascitic fluid in the bilateral inguinal hernias. There are lar ge bilateral hydroceles containing ascitic fluid. There is a Cheatham catheter in the urinary bladder. There is no pelvic mass or adenopathy. Interval insertion of a right common femoral vein catheter. No focal osseous lesions are seen. IMPRESSION: 1. Increasing right lung infiltrate consistent with acute pneumonia. 2. Persistent masslike opacity left lung base. Could represent pneumonia or atelectasis but Follow-up is recommended rule out neoplasm. 3. Stable cholelithiasis. 4. Stable small bowel obstruction secondary to entrapment of bowel within a large right inguinal sonja ia. 4. Marked stable ascites. 5. Cirrhotic liver and esophageal varices 6. Large bilateral hydroceles. 7. Interval placement of a right common femoral vein catheter terminating in the right common iliac v ein.
--- NOTE | 2023-10-11 19:20 | P.PN ---
Subjective Progress Note Date: 10/11/23 73-year-old gentleman with past medical history of alcoholic cirrhosis, esophageal varices, hernia surgery presented to the ER with complaints of worsening abdominal pain, distention, positive nausea and vomiting states he consumed a burger on Thursday night and developed epigastric and bilateral inguinal hernia pain . Reports both bowel movements and constipation. Passing flatus. Recent EGD performed on 07/28/[address] Elvia Carlson reported large mid and distal esophagus with litigation, moderate portal hypertensive gastropathy with repeat EGD in [address] scan abdomen pelvis had re ported left lower lobe infiltrate, possible pneumonia ,marked ascites, marked cirrhosis and splenomegaly. Multiple gallstones, no biliary ductal dilatation, large bilateral inguinal hernias containing ascitic fluid. On admission, lipase 1965. BUN 63, creatinine 1.59. Afebrile, WBC 10.7 down to 8.7. Hemoglobin 8.6 lakelets 129, INR 1.2. Sodium 134. UA reported many bacteria, occasional WBC c lumps, 6 WBCs, small leukocytes, positive nitrates. Received ceftriaxone in the ER Objective - Vital Signs Vital signs: Vital Signs Temp 97.7 F 10/10/23 07:38 Pulse 82 10/10/23 07:38 Resp 19 10/10/23 07:38 BP 93/57 10/10/23 07:38 Pulse Ox 92 L 10/10/23 07:38 FiO2 Intake & Output 10/09/23 10/10/23 10/10/23 18:59 06:59 18:59 Output Total 1150 Balance -1150 Output: Urine 50 Other 1100 Other: Voiding Method Diaper Indwelling Catheter # Voids 1 - Exam GENERAL: Cachexic ,alert and oriented x 3, sitting up in bed, nauseated, fatigued HEENT: Normocephalic, conjunctivae normal. eyes normal. Poor dentition. NECK: Supple, no JVD. CARDIOVASCULAR: S1, S2 regular.. No murmur RESPIRATION: Unlabored, equal air entry , scattered rhonchi, diminished in the bases. ABDOMEN: Soft, nondistended, diffuse tenderness ,no guarding. scrotol edema. LEGS: No edema. no swelling NERVOUS SYSTEM: Cranial N 2-12 grossly normal. Generalized weakness. Skin: Warm and dry, no rash. - Labs CBC & Chem 7: 10/10/23 06:37 05/11/24 06:37 Labs: Abnormal Lab Results - Last 24 Hours (Table) 10/10/23 10/10/23 Range/Units 06:37 06:37 WBC 13.7 H (3.8-10.6) k/uL Hgb 9.9 L (13.0-17.5) gm/dL Hct 33.4 L (39.0-53.0) % MCV 74.4 L (80.0-100.0) fL MCH 22.1 L (25.0-35.0) pg MCHC 29.7 L (31.0-37.0) g/dL RDW 19.2 H (11.5-15.5) % Plt Count 141 L (150-450) k/uL Neutrophils # 12.1 H (1.3-7.7) k/uL Lymphocytes # 0.3 L (1.0-4.8) k/uL Sodium 134 L (137-145) mmol/L Potassium 5.6 H (3.5-5.1) mmol/L Carbon Dioxide 17 L (22-30) mmol/L BUN 81 H (9-20) mg/dL Creatinine 4.65 H (0.66-1.25) mg/dL Microbiology - Last 24 Hours (Table) 10/08/23 18:02 Gram Stain - Preliminary Sputum Sputum Culture - Preliminary Ann albicans 10/06/23 20:54 Blood Culture - Preliminary Blood Assessment and Plan Assessment: Acute gallstone pancreatitis, resolved Cholelithiasis reported on CT Left lower lobe aspiration pneumonia, suggested per CT Acute renal failure secondary to ATN, contrast, diuretics, paracentesis, hypotension Metabolic acidosis secondary to the above Severe protein calorie malnutrition. Albumin 3.3 Ascites in a patient with history of alcoholic cirrhosis, possible SBP, status post paracentesis 4.8 L Elevated CRP and procalcitonin Splenomegaly Anemia, further follow-up outpatient with Dr. Elvia Carlson whom patient follows with. Plan: Continue on current medication regimen ,monitoring and symptomatic treatment. Worsening renal failure, Cheatham catheter ordered, Aldactone disconti nued, nephrology consulted. IV fluid hydration. avoid nephrotoxins. close monitoring of renal function, WBC with repeat labs ordered for a.m. Sputum and blood cultures finalizing. Aggressive pulmonary toileting, incentive spirometer at bedside, reinforced. DuHelgabs added to med regimen. Sputum and blood cultures finalizing, antibiotics as per ID. discussed option of subacute rehab at discharge as patient appears significantly weak; patient declines.
--- NOTE | 2023-10-11 19:25 | P.PN ---
Subjective Progress Note Date: 10/11/23 73-year-old gentleman with past medical history of alcoholic cirrhosis, esophageal varices, hernia surgery presented to the ER with complaints of worsening abdominal pain, distention, positive nausea and vomiting states he consumed a burger on Thursday night and developed epigastric and bilateral inguinal hernia pain . Reports both bowel movements and constipation. Passing flatus. Recent EGD performed on 07/28/[address] Elvia Carlson reported large mid and distal esophagus with litigation, moderate portal hypertensive gastropathy with repeat EGD in [address] scan abdomen pelvis had re ported left lower lobe infiltrate, possible pneumonia ,marked ascites, marked cirrhosis and splenomegaly. Multiple gallstones, no biliary ductal dilatation, large bilateral inguinal hernias containing ascitic fluid. On admission, lipase 1965. BUN 63, creatinine 1.59. Afebrile, WBC 10.7 down to 8.7. Hemoglobin 8.6 lakelets 129, INR 1.2. Sodium 134. UA reported many bacteria, occasional WBC c lumps, 6 WBCs, small leukocytes, positive nitrates. Received ceftriaxone in the ER 10/11/2023 Patient is seen and evaluated with family members at bedside; reports no specifi c complaints; requests ice chips and water; NG tube to suction; continues to have significant output through NG tube Vital signs are reviewed temperature 98.5, pulse 76, respiration 18 and blood pressure 101/60 -Lab work from yesterday WBC improving at 13.7, hemoglobin of 9.9 and platelet count of 141, sodium 134, potassium 5.6, BUNs/creatinine of 81/4.65; patient has had no improvement in renal function with IV fluids; Aldactone has been discontinued; patient had first hemodialysis completed yesterday; nephrology on board and planning for next treatment tomorrow Surgery following for; planning repeat CT with oral contrast; patient remains extremely high risk for any surgical intervention due to chronic liver failure and ascites --Will start patient on midodrine; order IV albumin Objective - Vital Signs Vital signs: Vital Signs Temp 98.5 F 10/11/23 07:29 Pulse 76 10/11/23 07:29 Resp 18 10/11/23 07:29 BP 101/60 10/11/23 08:04 Pulse Ox 86 L 10/11/23 08:04 FiO2 Intake & Output 10/10/23 10/11/2310/10/24 18:59 06:59 18:59 Intake Total 600 Output Total 650 1178 Balance -650 -578 Intake: Hemodialysis 600 Output: Gastric Drainage 650 900 Urine 50 Hemodialysis 228 Other: Voiding Method Indwelling Catheter Indwelling Catheter Indwelling Catheter # Voids 250 - Exam GENERAL: Cachexic ,alert and oriented x 3, sitting up in bed, nauseated, fatigued HEENT: Normocephalic, conjunctivae normal. eyes normal. Poor dentition. NECK: Supple, no JVD. CARDIOVASCULAR: S1, S2 regular.. No murmur RESPIRATION: Unlabored, equal air entry , scattered rhonchi, diminished in the bases. ABDOMEN: Soft, nondistended, diffuse tenderness ,no guarding. scrotol edema. LEGS: No edema. no swelling NERVOUS SYSTEM: Cranial N 2-12 grossly normal. Generalized weakness. Skin: Warm and dry, no rash. - Labs CBC & Chem 7: 10/10/23 06:37 10/10/23 06:37 Labs: Microbiology - Last 24 Hours (Table) 10/08/23 18:02 Gram Stain - Final Sputum Sputum Culture - Final Ann albicans Assessment and Plan Assessment: Acute gallstone pancreatitis, resolved Cholelithiasis reported on CT Left lower lobe aspiration pneumonia, suggested per CT Acute renal failure secondary to ATN, contrast, diuretics, paracentesis, hypotension Metabolic acidosis secondary to the above Severe protein calorie malnutrition. Albumin 3.3 Ascites in a patient with history of alcoholic cirrhosis, possible SBP, status post paracentesis 4.8 L Elevated CRP and procalcitonin Splenomegaly Anemia, further follow-up outpatient with Dr. Elvia Carlson whom patient follows with. Plan: Continue on current medication regimen ,monitoring and symptomatic treatment. Worsening renal failure, Cheatham catheter ordered, Aldactone discontinued, nephrology consulted. IV fluid hydration. avoid nephrotoxins. close monitoring of renal function, WBC with repeat labs ordered for a.m. Sputum and blood cultures finalizing. Aggressive pulmonary toileting, incentive spirometer at bedside, reinforced. DuoNebs added to med regimen. Sputum and blood cultures finalizing, antibiotics as per ID. discussed option of subacute rehab at discharge as patient appears significantly weak; patient declines.
[2023-10-12 08:47] LABS: Hepatitis B Surface Antigen Nonreactive (Nonreactive)
[2023-10-12 09:07] LABS: Basophils # (A) 0.06 X 10*3/uL (0.00-0.10); Basophils % (A) 0.4 %; Eosinophils # (A) 0.08 X 10*3/uL (0.04-0.35); Eosinophils % (A) 0.5 %; HCT 28.2 % (39.6-50.0); HGB 8.7 g/dL (13.0-17.0); Lymphocytes # (A) 0.22 X 10*3/uL (0.90-5.00); Lymphocytes % (A) 1.3 %; MCH 21.8 pg (27.0-32.0); MCHC 30.9 g/dL (32.0-37.0); MCV 70.7 FL (80.0-97.0); Mean Platelet Volume 11.3 FL (9.5-12.2); Monocytes # (A) 1.45 X 10*3/uL (0.20-1.00); Monocytes % (A) 8.6 %; NRBC Per 100 WBC 0.02 X 10*3/uL (0.00-0.01); Platelet Count 132 X 10*3/uL (140-440); RBC 3.99 X 10*6/uL (4.40-5.60); RDW 20.8 % (11.5-14.5); WBC 16.81 X 10*3/uL (4.50-10.00)
[2023-10-12 09:23] LABS: BUN/Creat Ratio 15.18 Ratio (12.00-20.00); Carbon Dioxide 18.6 mmol/L (21.6-31.8); Chloride 97 mmol/L (96-109); Glucose 86 mg/dL (70-110); Potassium 4.8 mmol/L (3.5-5.5); Sodium 135 mmol/L (135-145)
[2023-10-12 09:24] LABS: Albumin 2.8 g/dL (3.8-4.9); Calcium 8.4 mg/dL (8.7-10.3)
--- NOTE | 2023-10-12 12:25 | P.PN ---
Subjective patient is seen for follow-up for acute kidney injury. He is scheduled for hemodialysis today due to worsening renal function. However family has decided to proceed with comfort care measures and dialysis will be held. Objective - Vital Signs Vital signs: Vital Signs Temp 98.0 F 10/12/23 07:24 Pulse 87 10/12/23 07:24 Resp 15 10/12/23 07:24 BP 95/57 10/12/23 11:35 Pulse Ox 90 L 10/12/23 07:24 FiO2 Intake & Output 10/11/23 10/12/23 10/12/23 18:59 06:59 18:59 Output Total 800 Balance -800 Weight 76.204 kg Output: Gastric Drainage 800 Other: Voiding Method Indwelling Catheter Indwelling Catheter Indwelling Catheter - Exam patient is awake, comfortable, no acute distress Examination of the heart S1 and S2 Examination of the lungs decreased breath sounds at the bases Abdomen is soft distended Examination lower extremities shows no significant edema. - Labs CBC & Chem 7: 10/12/23 04:57 10/12/23 04:57 Labs: Abnormal Lab Results - Last 24 Hours (Table) 10/12/23 10/12/23 Range/Units 04:57 04:57 WBC 16.81 H (4.50-10.00) X 10*3/uL RBC 3.99 L (4.40-5.60) X 10*6/uL Hgb 8.7 L (13.0-17.0) g/dL Hct 28.2 L (39.6-50.0) % MCV 70.7 L (80.0-97.0) FL MCH 21.8 L (27.0-32.0) pg MCHC 30.9 L (32.0-37.0) g/dL RDW 20.8 H (11.5-14.5) % Plt Count 132 L (140-440) X 10*3/uL Immature Gran # 0.20 H (0.00-0.04) X 10*3/uL Neutrophils # 14.80 H (1.80-7.70) X 10*3/uL Lymphocytes # 0.22 L (0.90-5.00) X 10*3/uL Monocytes # 1.45 H (0.20-1.00) X 10*3/uL NRBC/100 WBC Diff 0.02 H (0.00-0.01) X 10*3/uL Carbon Dioxide 18.6 L (21.6-31.8) mmol/L Anion Gap 19.40 H (4.00-12.00) mmol/L BUN 85.0 H (9.0-27.0) mg/dL Creatinine 5.6 H (0.6-1.5) mg/dL Est GFR (CKD-EPI) 10 L (>=60) Calcium 8.4 L (8.7-10.3) mg/dL Phosphorus 8.0 H (2.4-5.1) mg/dL Albumin 2.8 L (3.8-4.9) g/dL Microbiology - Last 24 Hours (Table) 10/06/23 20:54 Blood Culture - Final Blood Assessment and Plan Assessment: 1. Acute kidney injury secondary to ATN secondary to hypotension, diuretic use as well as paracentesis. Also received IV contrast on October 05, 2023. Creatinine as low as 1.15 this admission and up to 5.6 and oliguric, started HD with temp cath 10/09. 2. Liver cirrhosis. 3. Ascites status post paracentesis status post 4.8 L drained October 06, 2023. 4. Pneumonia and possible SBP on antibiotics. ID following. 5. Metabolic acidosis secondary to acute kidney injury. Plan: hold hemodialysis as code status has been changed to comfort care measures.
[2023-10-12] MEDS: MIDODRINE 5 MG TAB PO SCH (12:33)
[2023-10-12 12:43] VITALS: BMI 22.8
--- NOTE | 2023-10-12 13:27 | P.PN ---
Subjective Progress Note Date: 10/12/23 CHIEF COMPLAINT: Abdominal pain HISTORY OF PRESENT ILLNESS: Patient was initially scheduled for open repair of right inguinal hernia. Patient is a high risk surgical candidate. Dr. Reeves did discuss case with patient's . At this time patient's does wish to proceed with hospice and comfort care. Surgery has been canceled. Afebrile. Hypotensive. Patient and have also declined hemodialysis. WBC 16.8 Hgb 8.7 platelets 132 creatinine is up to 5.6 PHYSICAL EXAM: VITAL SIGNS: Reviewed. GENERAL: no acute distress. ABDOMEN: Soft. Nondistended. Bilateral inguinal hernias. Large right inguinal hernia. Both hernias are tender with palpation. NEUROLOGIC: Awake and able to answer questions ASSESSMENT: 1. Small bowel obstruction secondary to inguinal hernia 2. Acute gallstone pancreatitis 3. Cholelithiasis 4. History of alcohol use disorder 5. Anemia with evidence of iron deficiency 6. History of liver cirrhosis and abdominal ascites requiring paracentesis 7. Large bilateral inguinal hernias 8. Acute renal failure PLAN: -Patient family have decided to proceed with hospice and comfort care -Surgery for today has been canceled -Continue comfort care measures Physician Back Line Cook note has been reviewed by physician. Signing provider agrees with the documented findings, assessment, and plan of care. Objective - Vital Signs Vital signs: Vital Signs Temp 98.0 F 10/12/23 07:24 Pulse 87 10/12/23 07:24 Resp 15 10/12/23 07:24 BP 95/57 10/12/23 11:35 Pulse Ox 90 L 10/12/23 07:24 FiO2 Intake & Output 10/11/23 10/12/23 10/12/23 18:59 06:59 18:59 Output Total 800 Balance -800 Weight 76.204 kg Output: Gastric Drainage 800 Other: Voiding Method Indwelling Catheter Indwelling Catheter Indwelling Catheter - Labs CBC & Chem 7: 10/12/23 04:57 10/12/23 04:57 Labs: Abnormal Lab Results - Last 24 Hours (Table) 10/12/23 10/12/23 Range/Units 04:57 04:57 WBC 16.81 H (4.50-10.00) X 10*3/uL RBC 3.99 L (4.40-5.60) X 10*6/uL Hgb 8.7 L (13.0-17.0) g/dL Hct 28.2 L (39.6-50.0) % MCV 70.7 L (80.0-97.0) FL MCH 21.8 L (27.0-32.0) pg MCHC 30.9 L (32.0-37.0) g/dL RDW 20.8 H (11.5-14.5) % Plt Count 132 L (140-440) X 10*3/uL Immature Gran # 0.20 H (0.00-0.04) X 10*3/uL Neutrophils # 14.80 H (1.80-7.70) X 10*3/uL Lymphocytes # 0.22 L (0.90-5.00) X 10*3/uL Monocytes # 1.45 H (0.20-1.00) X 10*3/uL NRBC/100 WBC Diff 0.02 H (0.00-0.01) X 10*3/uL Carbon Dioxide 18.6 L (21.6-31.8) mmol/L Anion Gap 19.40 H (4.00-12.00) mmol/L BUN 85.0 H (9.0-27.0) mg/dL Creatinine 5.6 H (0.6-1.5) mg/dL Est GFR (CKD-EPI) 10 L (>=60) Calcium 8.4 L (8.7-10.3) mg/dL Phosphorus 8.0 H (2.4-5.1) mg/dL Albumin 2.8 L (3.8-4.9) g/dL Microbiology - Last 24 Hours (Table) 10/06/23 20:54 Blood Culture - Final Blood
--- NOTE | 2023-10-12 15:03 | P.PN ---
Subjective Progress Note Date: 10/12/23 10/06/23 This is a 73-year-old gentleman with past medical history of alcoholic cirrhosis, esophageal varices, hernia surgery presented to the ER with complaints of worsening abdominal pain, distention, positive nausea and vomiting states he consumed a burger on Thursday night and developed epigastric and bilateral inguinal hernia pain . Reports both bowel movements and constipation. Passing flatus. Recent EGD performed on 07/28/[address] Elvia Carlson reported large mid and distal esophagus with litigation, moderate portal hypertensive gastropathy with repeat EGD in [address] scan abdomen pelvis had reported left lower lobe infiltrate, possible pneumonia ,marked ascites, marked cirrhosis and splenomegaly. Multiple gallstones, no biliary ductal dilatation, large bilateral inguinal hernias containing ascitic fluid. On admission, lipase 1965. BUN 63, creatinine 1.59. Afebrile, WBC 10.7 down to 8.7. Hemoglobin 8.6 lakelets 129, INR 1.2. Sodium 134. UA reported many bacteria, occasional WBC clumps, 6 WBCs, small leukocytes, positive nitrates. Received ceftriaxone in the ER 10/07/2023 lipase significantly decreased to 129. continues on Zosyn, elevated CRP 5.3 and procalcitonin 0.33. Afebrile, normal WBC. blood cultures pending. Denies cough. Potassium 5.1, renal function improving, BUN 40, creatinine 1.15. Evaluated by general surgery;scheduled for diagnostic paracentesis with interventional radiology today and EGD with colonoscopy tomorrow. Reports nausea, ongoing abdominal pain, more so at the top as well as bilateral inguinal hernias. Hemoglobin increased to 9.4, platelets 124. 10/08/2023 status post paracentesis, 4.8 L. Unfortunately fluid culture/analysis was not performed. General surgery is canceled inpatient EGD with colonoscopy, recommending outpatient endoscopy. Denies current alcohol use .poor diet intake of clear liquid diet , denies nausea or vomiting .renal function worsening, creatinine up to 1.6. Sputum culture collected, pending. Blood cultures pending. Continues on Zosyn as per ID. Afebrile, WBC increased to 10.23. continues to report abdominal pain and bilateral inguinal hernia pain. Hemoglobin remains at 9.4, platelets 155. denies chest pain, palpitations or increased shortness of breath. Maintaining O2 sats in the high 90s on room air. 10/09/2023 reports did not sleep well, nausea and vomiting throughout the night and continues. Emesis of brown sputum. Denies diarrhea. sputum culture pending. Albumin 3.3. Renal function worsening, bicarb 19.2, BUN 51.8, creatinine 2.7, potassium trending, 5.5. Abdominal pain lessened. afebrile, WBC increased to 15.83. Maintained on Zosyn. Denies chest pain, palpitations or increased shortness of breath. Maintaining O2 sats of 97% on room air. 10/12/2023 CT of abdomen/ pelvis repeated yesterday, results noted. Complains of abdomen and back pain , fairly controlled.patient was initially scheduled for open repair of right inguinal hernia, high risk-discussed with both patient and his as per general surgery. worsening renal function-temporary cath with HD initiated on 10/09 .received hemodialysis yesterday.Both surgery and hemodialysis now on hold as patient and have declined and decided to proceed with hospice/comfort care. Afebrile, WBC 16.8 Hgb 8.7 platelets 132, bicarb 18.6, BUN 85, creatinine 5.6. Objective - Vital Signs Vital signs: Vital Signs Temp 98.0 F 10/12/23 07:24 Pulse 87 10/12/23 07:24 Resp 15 10/12/23 07:24 BP 95/57 10/12/23 11:35 Pulse Ox 90 L 10/12/23 07:24 FiO2 Intake & Output 10/11/23 10/12/23 10/12/23 18:59 06:59 18:59 Output Total 800 Balance -800 Weight 76.204 kg Output: Gastric Drainage 800 Other: Voiding Method Indwelling Catheter Indwelling Catheter Indwelling Catheter - Exam PHYSICAL EXAM: VITAL SIGNS: [As above] GENERAL: Cachexic ,alert and oriented x 2, sitting up in bed, fatigued, answering questions, requesting be included in decision making. HEENT: Normocephalic, conjunctivae normal. eyes normal. Poor dentition. NG tube with bilious drainage. NECK: Supple, no JVD. CARDIOVASCULAR: S1, S2 regular.. No murmur RESPIRATION: Unlabored, equal air entry , scattered rhonchi, diminished in the bases. ABDOMEN: Soft, nondistended, diffuse abdominal tenderness , tender bilateral inguinal hernias, no guarding. scrotol edema. LEGS: No edema. no swelling NERVOUS SYSTEM: Cranial N 2-12 grossly normal. Generalized weakness. Skin: Warm and dry, no rash. - Labs CBC & Chem 7: 10/12/23 04:57 10/12/23 04:57 Labs: Abnormal Lab Results - Last 24 Hours (Table) 10/12/23 10/12/23 Range/Units 04:57 04:57 WBC 16.81 H (4.50-10.00) X 10*3/uL RBC 3.99 L (4.40-5.60) X 10*6/uL Hgb 8.7 L (13.0-17.0) g/dL Hct 28.2 L (39.6-50.0) % MCV 70.7 L (80.0-97.0) FL MCH 21.8 L (27.0-32.0) pg MCHC 30.9 L (32.0-37.0) g/dL RDW 20.8 H (11.5-14.5) % Plt Count 132 L (140-440) X 10*3/uL Immature Gran # 0.20 H (0.00-0.04) X 10*3/uL Neutrophils # 14.80 H (1.80-7.70) X 10*3/uL Lymphocytes # 0.22 L (0.90-5.00) X 10*3/uL Monocytes # 1.45 H (0.20-1.00) X 10*3/uL NRBC/100 WBC Diff 0.02 H (0.00-0.01) X 10*3/uL Carbon Dioxide 18.6 L (21.6-31.8) mmol/L Anion Gap 19.40 H (4.00-12.00) mmol/L BUN 85.0 H (9.0-27.0) mg/dL Creatinine 5.6 H (0.6-1.5) mg/dL Est GFR (CKD-EPI) 10 L (>=60) Calcium 8.4 L (8.7-10.3) mg/dL Phosphorus 8.0 H (2.4-5.1) mg/dL Albumin 2.8 L (3.8-4.9) g/dL Microbiology - Last 24 Hours (Table) 10/06/23 20:54 Blood Culture - Final Blood Assessment and Plan Assessment: Small bowel obstruction secondary to inguinal hernia, high risk candidate for surgery Ileus secondary to the above, NG tube present Acute gallstone pancreatitis Cholelithiasis reported on CT Left lower lobe aspiration pneumonia, suggested per CT Acute renal failure secondary to ATN, contrast, diuretics, paracentesis, hypotension. Hemodialysis with temporary cath initiated 10/10/2023 Metabolic acidosis secondary to the above Severe protein calorie malnutrition. Albumin 3.3 Ascites in a patient with history of alcoholic liver cirrhosis, possible SBP, status post paracentesis 4.8 L Elevated CRP and procalcitonin Splenomegaly Anemia Plan: Continue on current medication regimen ,monitoring and symptomatic treatment. Patient and family have declined further hemodialysis as well as surgery and requesting to proceed comfort care/hospice. The impression and plan of care has been dictated as directed. : I performed a history and examination of this patient, discussed the same with the dictator. I agree with the dictator's note ,documented as a scribe. Any additional findings or plans will be noted.
[2023-10-13 08:24] VITALS: PULSE 85; RESP 16; TEMP 98.4
[2023-10-13 12:11] VITALS: BP 89/53
--- NOTE | 2023-10-13 12:14 | P.DS ---
Providers Date of admission: 10/05/23 21:14 Expected date of discharge: 10/13/23 Attending physician: Amaury Archer MD Consults: 10/05/23 20:11 Consult Physician Urgent Consulting Provider: Bella Lawler Consult Reason/Comments: Pneumonia Do you want consulting provider notified?: Yes, Notify in am 10/06/23 07:54 Consult Physician Routine Consulting Provider: Nam Reeves Consult Reason/Comments: pancreatitis Do you want consulting provider notified?: Yes 10/09/23 09:26 Consult Physician Routine Consulting Provider: Bk Haji Consult Reason/Comments: renal failure Do you want consulting provider notified?: Yes 10/10/23 12:17 Consult Physician Stat Consulting Provider: Allen Strickland Consult Reason/Comments: HD catheter Do you want consulting provider notified?: Already Contacted Primary care physician: Amaury Archer MD Hospital Course: Final Diagnoses Small bowel obstruction secondary to inguinal hernia, high risk candidate for surgery Ileus secondary to the above, NG tube present Acute gallstone pancreatitis Cholelithiasis reported on CT Left lower lobe aspiration pneumonia, suggested per CT Acute renal failure secondary to ATN, contrast, diuretics, paracentesis, hypotension. Hemodialysis with temporary cath initiated 10/10/2023 Metabolic acidosis secondary to the above Severe protein calorie malnutrition. Albumin 3.3 Ascites in a patient with history of alcoholic liver cirrhosis, possible SBP, status post paracentesis 4.8 L Elevated CRP and procalcitonin Splenomegaly Anemia Hospital course: 10/06/23 This is a 73-year-old gentleman with past medical history of alcoholic cirrhosis, esophageal varices, hernia surgery presented to the ER with complaints of worsening abdominal pain, distention, positive nausea and vomiting states he consumed a burger on Thursday night and developed epigastric and bilateral inguinal hernia pain . Reports both bowel movements and constipation. Passing flatus. Recent EGD performed on 07/28/[address] Elvia Carlson reported large mid and distal esophagus with litigation, moderate portal hypertensive gastropathy with repeat EGD in [address] scan abd omen pelvis had reported left lower lobe infiltrate, possible pneumonia ,marked ascites, marked cirrhosis and splenomegaly. Multiple gallstones, no biliary ductal dilatation, large bilateral inguinal hernias containing ascitic fluid. On admission, lipase 1965. BUN 63, creatinine 1.59. Afebrile, WBC 10.7 down to 8.7. Hemoglobin 8.6 lakelets 129, INR 1.2. Sodium 134. UA reported many bacteria, occasional WBC clumps, 6 WBCs, small leukocytes, positive nitrates. Received ceftriaxone in the ER 10/07/2023 lipase significantly decreased to 129. continues on Zosyn, elevated CRP 5.3 and procalcitonin 0.33. Afebrile, normal WBC. blood cultures pending. Denies cough. Potassium 5.1, renal function improving, BUN 40, creatinine 1.15. Evaluated by general surgery;scheduled for diagnostic paracentesis with interventional radiology today and EGD with colonoscopy tomorrow. Reports nausea, ongoing abdominal pain, more so at the top as well as bilateral inguinal hernias. Hemoglobin increased to 9.4, platelets 124. 10/08/2023 status post paracentesis, 4.8 L. Unfortunately fluid culture/analysis was not performed. General surgery is canceled inpatient EGD with colonoscopy, recommending outpatient endoscopy. Denies current alcohol use .poor diet intake of clear liquid diet , denies nausea or vomiting .renal function worsening, creatinine up to 1.6. Sputum culture collected, pending. Blood cultures pending. Continues on Zosyn as per ID. Afebrile, WBC increased to 10.23. continues to report abdominal pain and bilateral inguinal hernia pain. Hemoglobin remains at 9.4, platelets 155. denies chest pain, palpitations or increased shortness of breath. Maintaining O2 sats in the high 90s on room air. 10/09/2023 reports did not sleep well, nausea and vomiting throughout the night and continues. Emesis of brown sputum. Denies diarrhea. sputum culture pending. Albumin 3.3. Renal function worsening, bicarb 19.2, BUN 51.8, creatinine 2.7, potassium trending, 5.5. Abdominal pain lessened. afebrile, WBC increased to 15.83. Maintained on Zosyn. Denies chest pain, palpitations or increased shortness of breath. Maintaining O2 sats of 97% on room air. 10/12/2023 CT of abdomen/ pelvis repeated yesterday, results noted. Complains of abdomen and back pain , fairly controlled.patient was initially scheduled for open repair of right inguinal hernia, high risk-discussed with both patient and his as per general surgery. worsening renal function-temporary cath with HD initiated on 10/09 .received hemodialysis yesterday.Both surgery and hemodialysis now on hold as patient and have declined and decided to proceed with hospice/comfort care. Afebrile, WBC 16.8 Hgb 8.7 platelets 132, bicarb 18.6, BUN 85, creatinine 5.6. Patient has been approved at [facility] and will be discharged there today pending dialysis cath discontinued. The impression and plan of care has been dictated as directed. : I performed a history and examination of this patient, discussed the same with the dictator. I agree with the dictator's note ,documented as a scribe. Any additional findings or plans will be noted. Patient Condition at Discharge: Stable Plan - Discharge Summary Discharge Rx Participant: Yes New Discharge Prescriptions: Continue traMADol HCl [Ultram] 100 mg PO BID atenoloL [Tenormin] 25 mg PO DAILY@1300 Loratadine [Claritin] 10 mg PO DAILY@1300 Omeprazole 20 mg PO DAILY@1300 Fluticasone Nasal [place] [Flonase Nasal [place]] 1 spr EA NOSTRIL HS Ferocon 1 cap PO DAILY@1300 Furosemide [Lasix] 40 mg PO DAILY@1300 Lactulose 10 gm PO BID QUEtiapine [SEROquel] 25 mg PO HS PRN PRN Reason: Insomnia Discontinued Atorvastatin [Lipitor] 40 mg PO DAILY@1300 Aspirin [Adult Low Dose Aspirin EC] 81 mg PO DAILY@1300 Folic Acid 1 mg PO Q2D@1300 Cholecalciferol [Vitamin D3 (25 Mcg = 1000 Iu)] 125 mcg PO TH Spironolactone [Aldactone] 200 mg PO DAILY@1300 Discharge Medication List traMADol HCl [Ultram] 100 mg PO BID 07/12/14 [History] Loratadine [Claritin] 10 mg PO DAILY@1300 08/06/20 [History] atenoloL [Tenormin] 25 mg PO DAILY@1300 08/06/20 [History] Omeprazole 20 mg PO DAILY@1300 08/31/20 [History] Fluticasone Nasal [place] [Flonase Nasal [place]] 1 spr EA NOSTRIL HS 03/25/21 [History] Furosemide [Lasix] 40 mg PO DAILY@1300 07/09/21 [History] Lactulose 10 gm PO BID 12/06/21 [History] Ferocon 1 cap PO DAILY@1300 10/05/23 [History] QUEtiapine [SEROquel] 25 mg PO HS PRN 10/05/23 [History] Follow up Appointment(s)/Referral(s): Amaury Archer MD [Primary Care Provider] - 10/12/23 1:00 pm (with Zhanna) [facility] [NON-STAFF] - As Needed (walker) aNm Reeves MD [STAFF PHYSICIAN] - 10/15/23 1:00 pm Activity/Diet/Wound Care/Special Instructions: [facility]
--- NOTE | 2023-10-13 12:35 | P.PN ---
Subjective patient is seen for follow-up for acute kidney injury. no plans on renal replacement therapy as family has decided to proceed with comfort care measures. Objective - Vital Signs Vital signs: Vital Signs Temp 98.4 F 10/13/23 07:14 Pulse 85 10/13/23 07:14 Resp 16 10/13/23 08:56 BP 89/53 10/13/23 11:50 Pulse Ox 91 L 10/13/23 07:14 FiO2 Intake & Output 10/12/23 10/13/23 10/13/23 18:59 06:59 18:59 Output Total 700 2160 Balance -700 -2160 Weight 76.204 kg Output: Gastric Drainage 700 800 Urine 1360 Other: Voiding Method Indwelling Catheter Indwelling Catheter Indwelling Catheter - Exam patient is awake, comfortable, no acute distress NG tube in place Abdomen is soft distended Examination lower extremities shows no significant edema. - Labs CBC & Chem 7: 10/12/23 04:57 10/12/23 04:57 Assessment and Plan Assessment: 1. Acute kidney injury secondary to ATN secondary to hypotension, diuretic use as well as paracentesis. Also received IV contrast on October 05, 2023. Creatinine as low as 1.15 this admission and up to 5.6 and oliguric, started HD with temp cath 10/09. no plans on further renal replacement therapy as "status has been changed to comfort care measures. 2. Liver cirrhosis. 3. Ascites status post paracentesis status post 4.8 L drained October 06, 2023. 4. Pneumonia and possible SBP on antibiotics. ID following. 5. Metabolic acidosis secondary to acute kidney injury. Plan: no plans on renal replacement therapy as code status has been changed to comfort care measures.
--- NOTE | 2023-10-13 12:55 | P.PN ---
Subjective Progress Note Date: 10/13/23 CHIEF COMPLAINT: Abdominal pain HISTORY OF PRESENT ILLNESS: Surgery for open repair of hiatal hernia was canceled yesterday. Patient and family wish to proceed with hospice and comfort care. Patient is scheduled to be discharged to [facility] today. He reports his pain is controlled. PHYSICAL EXAM: VITAL SIGNS: Reviewed. GENERAL: no acute distress. ABDOMEN: Soft. Nondistended. Bilateral inguinal hernias. Large right inguinal hernia. Both hernias are tender with palpation. NEUROLOGIC: Awake and able to answer questions ASSESSMENT: 1. Small bowel obstruction secondary to inguinal hernia 2. Acute gallstone pancreatitis 3. Cholelithiasis 4. History of alcohol use disorder 5. Anemia with evidence of iron deficiency 6. History of liver cirrhosis and abdominal ascites requiring paracentesis 7. Large bilateral inguinal hernias 8. Acute renal failure PLAN: -Patient being discharged to hospice house today -Agree with hospice and comfort care -NG tube can be discontinued for comfort measures Physician Chairman note has been reviewed by physician. Signing provider agrees with the documented findings, assessment, and plan of care. Objective - Vital Signs Vital signs: Vital Signs Temp 98.4 F 10/13/23 07:14 Pulse 85 10/13/23 07:14 Resp 16 10/13/23 08:56 BP 89/53 10/13/23 11:50 Pulse Ox 91 L 10/13/23 07:14 FiO2 Intake & Output 10/12/23 10/13/23 10/13/23 18:59 06:59 18:59 Output Total 700 2160 Balance -700 -2160 Weight 76.204 kg Output: Gastric Drainage 700 800 Urine 1360 Other: Voiding Method Indwelling Catheter Indwelling Catheter Indwelling Catheter - Labs CBC & Chem 7: 10/12/23 04:57 10/12/23 04:57
--- NOTE | 2023-10-13 20:15 | OP ---
OPERATIVE REPORT DATE OF SERVICE : 10/13/2023 PROCEDURE: Removal of the dialysis catheter, right femoral approach. DESCRIPTION OF PROCEDURE: The patient was seen in his room, groin was prepped, stitches were removed and dialysis catheter was removed. Pressures were held. The patient tolerated the procedure well. PLAN: To give the patient bedrest for 3 hours. CARLOS MANUEL / BIRGITN: [id number] / MTDD
== END 2023-10-13 17:40 | disposition hospice, inpatient (51) | DRG 438 ==
LOC: EC 15:44 → 4SSUR 21:14 → 1SOBS 10-06 10:09 → 4SSUR 10-07 13:18
PROVIDERS: ADMIT Family Medicine; ATTEND Family Medicine
PROC: 0D9670Z Drainage of Stomach with Drainage Device, Via Natural or Artificial Opening (ICD-10-PCS; 2023-10-05)
PROC: 0W9G3ZZ Drainage of Peritoneal Cavity, Percutaneous Approach (ICD-10-PCS; 2023-10-06)
PROC: 02HV33Z Insertion of Infusion Device into Superior Vena Cava, Percutaneous Approach (ICD-10-PCS; 2023-10-10)
PROC: B548ZZA Ultrasonography of Superior Vena Cava, Guidance (ICD-10-PCS; 2023-10-10)
PROC: B5181ZA Fluoroscopy of Superior Vena Cava using Low Osmolar Contrast, Guidance (ICD-10-PCS; 2023-10-10)
PROC: 5A1D70Z Performance of Urinary Filtration, Intermittent, Less than 6 Hours Per Day (ICD-10-PCS; 2023-10-10)
PROC: B5191ZZ Fluoroscopy of Inferior Vena Cava using Low Osmolar Contrast (ICD-10-PCS; 2023-10-10)
PROC: B5181ZZ Fluoroscopy of Superior Vena Cava using Low Osmolar Contrast (ICD-10-PCS; 2023-10-10)
PROC: 02PYX3Z Removal of Infusion Device from Great Vessel, External Approach (ICD-10-PCS; principal; 2023-10-13)
DX: K85.10 Biliary acute pancreatitis without necrosis or infection (principal); E43 Unspecified severe protein-calorie malnutrition; J69.0 Pneumonitis due to inhalation of food and vomit; N17.0 Acute kidney failure with tubular necrosis; K80.10 Calculus of gallbladder with chronic cholecystitis without obstruction; E87.20 Acidosis, unspecified; K76.6 Portal hypertension; K56.7 Ileus, unspecified; Z51.5 Encounter for palliative care; D50.9 Iron deficiency anemia, unspecified; K40.20 Bilateral inguinal hernia, without obstruction or gangrene, not specified as recurrent; K70.31 Alcoholic cirrhosis of liver with ascites; E78.5 Hyperlipidemia, unspecified; I25.2 Old myocardial infarction; I95.9 Hypotension, unspecified; K72.10 Chronic hepatic failure without coma; K31.89 Other diseases of stomach and duodenum; K21.9 Gastro-esophageal reflux disease without esophagitis; F10.10 Alcohol abuse, uncomplicated; R79.82 Elevated C-reactive protein (CRP); R16.1 Splenomegaly, not elsewhere classified; Z68.22 Body mass index [BMI] 22.0-22.9, adult; N18.9 Chronic kidney disease, unspecified; I12.9 Hypertensive chronic kidney disease with stage 1 through stage 4 chronic kidney disease, or unspecified chronic kidney disease; Z79.82 Long term (current) use of aspirin; Z79.899 Other long term (current) drug therapy; I25.10 Atherosclerotic heart disease of native coronary artery without angina pectoris; T50.2X5A Adverse effect of carbonic-anhydrase inhibitors, benzothiadiazides and other diuretics, initial encounter; Z87.891 Personal history of nicotine dependence; Z95.5 Presence of coronary angioplasty implant and graft; X58.XXXA Exposure to other specified factors, initial encounter; Z87.19 Personal history of other diseases of the digestive system
CPT/HCPCS: 36415; 36556; 49083; 71045; 74176; 74177; 75825; 76705; 80048; 80053; 80069; 81001; 82150; 83540; 83550; 83605; 83690; 84145; 85025; 85027; 85610; 86140; 86706; 87040; 87070; 87205; 87340; 90935; 96361; 96374; 96375; 96376; 99285